=== PATIENT | female | born 1940 | race Caucasian/White ===

== ENCOUNTER 2018-02-17 09:51 | Emergency (ER) | payer MEDICARE, OTHER, SELFPAY ==
[2018-02-17 09:52] VITALS: BP 187/100; PULSE 99; RESP 14; TEMP 37.1; O2SAT 97; BMI 32.8
--- NOTE | 2018-02-17 10:24 | RAD_ITS ---
STUDY: X-RAY - UNILATERAL RIBS ( LEFT ) WITH CHEST REASON FOR EXAM: Female, 77 years old. Fall. Chest pain. TECHNIQUE - RIBS: 2 view(s) of the ribs. TECHNIQUE - CHEST: Single frontal view of the chest. COMPARISON: None. FINDINGS - RIBS: There is severe demineralization of the osseous structures which diminishes the diagnostic sensitivity of this examination, however there is no visualized rib fracture. FINDINGS - CHEST: Left lower lung linear increased densities. There is no demonstrated pleural abnormality. Normal size heart. Normal mediastinum and marcia. Normal visualized pulmonary arteries. There is atherosclerotic calcification of the aortic arch with tortuosity. There is demineralization of the osseous structures. Normal visualized ribs, clavicles, and shoulders. There is no demonstrated abnormality of the visualized soft tissue structures of the upper abdomen. RAD/Ribs Uni Min 3V w/PA Chest IMPRESSION: RIBS: No fracture seen. CHEST: Left lower lung atelectasis or scarring. No fracture seen. Electronically Signed: Hansel Alva MD at 10:54 EDT , Service support ,
--- NOTE | 2018-02-17 10:27 | ED.DCSUM_ITS ---
- ER Visit Summary Date of Service: 02/17/18 Chief Complaint: Rib pain History of Present Illness: The patient is a 77 F who states on Tuesday she was on a walk with her grandchildren when she tripped on fell on some brace concrete landing on her left side. She states her ribs did not hurt until she went to get up. She notes pain on the left lower anterior ribs. She states that each day was a little bit better until today when she went to get out of bed and she had more pain than she had had. She denies any cough. She states it hurts more to take a deep breath. She notes some pain radiating around the side towards the back. She denies any hematuria. No abdominal pain. She takes no blood thinners but does take an 81 mg aspirin. Physical Examination: Afebrile vital signs are stable Gen: Well-nourished well-developed Head: Normocephalic atraumatic Eyes: Perrl EOMI ENT: TMs clear no rhinorrhea moist mucous membranes Neck: Supple no lymphadenopathy no JVD nontender CVS: Regular rate rhythm no murmurs normal S1-S2 Respiratory: No distress clear to auscultation bilaterally patient has tenderness along the anterior lower left ribs Abdomen: Soft nontender nondistended normal bowel sounds no masses Back: Nontender Extremity: Nontender no edema Skin: Normal color no rash Neuro: alert orientated ?3 CN II-XII intact normal strength sensation reflexes gait cerebellar Psych: Normal affect normal mood Test Results: Rib series was obtained. No definitive fracture was seen. There was an area consistent with atelectasis in the left lower lung. Emergency Department Course and Treatment: I reviewed the rib series findings with the patient. We talked about deep breathing/incentive spirometry which the patient will be doing at home to help relieve some of this atelectasis. Patient was advised that it may could possibly develop into pneumonia. She will be using ibuprofen for pain. We talked about narcotic pain medicine and she declines at this time which I think is very reasonable. She will follow-up with primary care return if worsening. Impression: 1. Left chest contusion This note was generated with [employer] dictation software. It may contain incorrect words, spelling, and punctuation that were not noted in review of the chart prior to signing ED Disposition - Plan for ED Patient: Disposition: Home or Assisted Living Chief Complaint: Fall Instructions: ED Contusion Rib, ED Atelectasis Referrals: Ozzie Patino MD [Primary Care Provider] - As Needed Additional Instructions: Tylenol or ibuprofen for pain. 2 deep breaths every hour at minimum. Monitor for fever cough or signs of pneumonia.
== END 2018-02-17 11:12 | disposition home or self-care (01) ==
PROVIDERS: Emergency Provider Emergency Medicine; Family Provider Family Medicine; PCP Family Medicine
DX: S20.212A Contusion of left front wall of thorax, initial encounter (principal); J98.11 Atelectasis; W01.0XXA Fall on same level from slipping, tripping and stumbling without subsequent striking against object, initial encounter; Y93.9 Activity, unspecified; Y92.9 Unspecified place or not applicable; E03.9 Hypothyroidism, unspecified; Z86.79 Personal history of other diseases of the circulatory system; Z90.89 Acquired absence of other organs; Z79.82 Long term (current) use of aspirin; Z79.899 Other long term (current) drug therapy
CPT/HCPCS: 71101; 99282

== ENCOUNTER → 2018-12-05 08:54 | Outpatient (CLI) | payer MEDICARE, OTHER, SELFPAY ==
[2018-11-28 11:50] VITALS: BMI 31.1
[2018-12-05 09:51] LABS: AST(SGOT) 19 U/L (15-37); Alanine Aminotransfer ALT/SGPT 20 U/L (13-56); Albumin, Serum 3.7 g/dL (3.2-5.0); Alkaline Phosphatase 68 U/L (45-117); Bilirubin, Direct 0.26 mg/dL (0.00-0.30); Cholesterol 183 mg/dL (200); Globulin 4.1 g/dL (2.2-4.2); Protein, Total 7.8 g/dL (6.4-8.2); Triglycerides 106 mg/dL
[2018-12-05 09:52] LABS: High Density Lipoprotein 61 mg/dL; Very Low Density Lipoprotein 21 mg/dL (5-40)
== END ==
PROVIDERS: Family Provider Internal Medicine; PCP Internal Medicine; Referring Provider Internal Medicine Cardiovascular Disease; Visit Provider Internal Medicine Cardiovascular Disease
DX: E03.9 Hypothyroidism, unspecified (principal); R94.31 Abnormal electrocardiogram [ECG] [EKG]; Z13.220 Encounter for screening for lipoid disorders
CPT/HCPCS: 36415; 80061; 80076

== ENCOUNTER → 2018-12-26 12:46 | Outpatient (CLI) | payer MEDICARE, OTHER, SELFPAY ==
[2018-11-28 11:50] VITALS: BMI 31.1
--- NOTE | 2018-12-26 12:48 | CDU_ITS ---
Reason For Study: vertigo Rt. Velocities/BP Lt. Velocities/BP Prox CCA 140/13.4 cm/sec. Prox CCA 87.4/11.1 cm/sec. Mid CCA 116/14.9 cm/sec. Mid CCA 85.6/14.7 cm/sec. Dist CCA 91.9/11.8 cm/sec. Dist CCA 79.7/15.8 cm/sec. Prox ICA 82.5/21.2 cm/sec. Prox ICA 57.5/14.7 cm/sec. Mid ICA 111/22.8 cm/sec. Mid ICA 71.5/18.2 cm/sec. Dist ICA 104/24.4 cm/sec. Dist ICA 81.7/22.0 cm/sec. Rt. ICA/CCA = 1.0. Lt. ICA/CCA = 1.0. Prox ECA 148/14.7 cm/sec. Prox ECA 116/10.2 cm/sec. Rt. Vert. 57.0/7.46 cm/sec. Lt. Vert. 76.8/19.9 cm/sec. Right Extracranial There is intimal thickening but no significant atherosclerotic plaque noted in the right common carotid artery. There is heterogeneous, irregular atherosclerotic plaque noted in the right internal carotid artery. There is heterogeneous, irregular atherosclerotic plaque noted in the right external carotid artery. Antegrade flow is noted in the right vertebral artery. Left Extracranial There is intimal thickening but no significant atherosclerotic plaque noted in the left common carotid artery. There is heterogeneous, irregular atherosclerotic plaque noted in the left internal carotid artery. There is intimal thickening but no significant atherosclerotic plaque noted in the left external carotid artery. Antegrade flow is noted in the left vertebral artery. Procedure Carotid Duplex 74902. The exam was diagnostic. Exam performed in department. 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 Irregular calcific plague at the proximal left internal carotid with <50% stenosis. Patent and antegrade vertebrals bilaterally Ordering Physician: Juan Saldana Performed By: Montana Silver RVT
--- NOTE | 2018-12-26 12:48 | ECHOD_ITS ---
Reason For Study: Arrhythmia Procedure This was a 2D Doppler, Color Flow transthoracic echocardiogram. Exam performed in department. Left Ventricle Normal size and thickness. The estimated ejection fraction is 65 %. Stage 1 diastolic dysfunction. No regional wall motion abnormalities noted. Right Ventricle Normal size and thickness. Normal systolic function. Atria Normal left atrium. Normal right atrium. Normal atrial septum. Positive bubble study with R to L crossover. Mitral Valve The mitral valve is structurally normal. No prolapse or stenosis seen. Tricuspid Valve Normal tricuspid valve. Trivial tricuspid valve insufficiency. Right ventricular systolic pressure estimated to be 31 mmHg. Aortic Valve Normal aortic valve. Trisinus/trileaflet aortic valve. Pulmonic Valve Normal pulmonic valve. Great Vessels Normal aortic root. Normal arch. Normal inferior vena cava. Inferior vena cava collapse with sniff. Pericardium/Pleural No pericardial effusion. Medication 22 gauge I.V. with prn adaptor inserted into right arm. Performed a rapid injection of agitated mix of 9 cc saline and 1cc air to assess for atrial septal defect. MMode/2D Measurements & Calculations LVIDd: 3.4 cm IVSd: 1.4 cm Ao root diam: 3.2 cm LVIDs: 2.0 cm LVPWd: 1.1 cm LA dimension: 3.2 cm RVDd: 3.5 cm FS: 40.8 % LAV(MOD-bp): 50.7 ml LA A4 area: 17.0 cm2 RA A4 area: 13.9 cm2 LAV(MOD-bp) Indexed: 28.9 ml/m2 LAV(MOD-sp2): 57.4 ml LAV(MOD-sp4): 43.5 ml Time Measurements MV dec time: 0.30 sec Doppler Measurements & Calculations MV E max ilya: 60.9 cm/sec Lat Peak E' Ilya: 6.5 cm/sec Med Peak E' Ilya: 5.4 cm/sec MV A max ilya: 95.4 cm/sec E/E' lat: 9.4 E/E' med: 11.4 MV E/A: 0.64 MV V2 max: 116.5 cm/sec MV P1/2t max ilya: 74.2 cm/sec Ao V2 max: 130.0 cm/sec MV max P.4 mmHg MV P1/2t: 78.3 msec Ao max P.8 mmHg MV V2 mean: 63.0 cm/sec MV dec slope: 277.4 cm/sec2 Ao V2 mean: 94.7 cm/sec MV mean P.8 mmHg Ao mean P.9 mmHg MV V2 VTI: 28.9 cm MVA(P1/2t): 2.8 cm2 Ao V2 VTI: 27.3 cm LV V1 max: 102.5 cm/sec PA V2 max: 103.0 cm/sec TR max ilya: 252.8 cm/sec LV V1 max P.2 mmHg TR max P.6 mmHg LV V1 mean P.5 mmHg LV V1 mean: 52.5 cm/sec LV V1 VTI: 21.5 cm Interpretation Summary The estimated ejection fraction is 65 %. Stage 1 diastolic dysfunction. Positive bubble study with R to L crossover Trivial tricuspid valve insufficiency. Right ventricular systolic pressure estimated to be 31 mmHg. There is no comparison study available. Ordering Physician: Juan Saldana Referring Physician: Juan Saldana Performed By: Kash Richmond RCS
== END ==
PROVIDERS: Family Provider Internal Medicine; PCP Internal Medicine; Referring Provider Internal Medicine Cardiovascular Disease; Visit Provider Internal Medicine Cardiovascular Disease
DX: R94.31 Abnormal electrocardiogram [ECG] [EKG] (principal); R42 Dizziness and giddiness
CPT/HCPCS: 93306; 93880; A4216

== ENCOUNTER → 2019-01-01 10:31 | Outpatient (CLI) | payer MEDICARE, OTHER, SELFPAY ==
[2018-11-28 11:50] VITALS: BMI 31.1
--- NOTE | 2019-01-01 10:32 | STE_ITS ---
Reason For Study: ARRHYTHMIA-OTHER Stress Results Protocol: BENJAMÍN Maximum Predicted HR: 144 bpm Target HR: 122 bpm % Maximum Predicted HR: 98 % DurationHeart Rate Stage (mm:ss) (bpm) BP Comment BASELINE 92 140/80 STAGE 1 3:00 127 172/82INCREASED SOB STAGE 2 0:56 141 / RECOVERY 102 142/80 Stress Duration: 3:56 mm:ss Maximum Stress HR: 141 bpm Baseline Echocardiogram Findings The estimated ejection fraction is 65 %. Stress Echo Wall motion Data Resting WM Intermediate WM Stress WM Resting Wall Motion Wall Motion Stress No regional wall motion No regional wall motion abnormalities noted. abnormalities noted. EKG Data The baseline ECG displays normal sinus rhythm. The patient exercised according to the regular Benjamín protocol for a total duration of 3:56. The maximum heart rate attained was 142 beats per minute. This was 98% of maximum predicted heart rate. The patient exercised into stage 2 of the Benjamín protocol. During stress, there were no ST or T wave changes noted to suggest ischemia. No clinical angina was noted. Interpretation Summary The estimated ejection fraction is 65 %. Normal, adequate, treadmill echocardiogram. Negative for ischemia by EKG and echocardiographic criteria. No anginal symptoms noted. Rare PVCs noted at peak exercise. Poor exercise capacity for age. Test terminated due to fatigue and target heart rate. Target heart rate and dyspnea. Final LVEF is 75%. No complications. Ordering Physician: Juan Saldana Referring Physician: Juan Saldana Performed By: Kash Richmond RCS
== END ==
PROVIDERS: Family Provider Internal Medicine; PCP Internal Medicine; Referring Provider Internal Medicine Cardiovascular Disease; Visit Provider Internal Medicine Cardiovascular Disease
DX: G47.10 Hypersomnia, unspecified (principal); R94.31 Abnormal electrocardiogram [ECG] [EKG]; I10 Essential (primary) hypertension; G47.33 Obstructive sleep apnea (adult) (pediatric)
CPT/HCPCS: 93017; 93350; 95811

== ENCOUNTER → 2019-02-07 | Outpatient (CLI) | payer MEDICARE, OTHER, SELFPAY ==
[2019-01-15 14:10] VITALS: BMI 29.7
== END | disposition home or self-care (01) ==
LOC: SL 23:28
PROVIDERS: Family Provider Internal Medicine; PCP Internal Medicine; Referring Provider Nurse Practitioner Acute Care; Visit Provider Nurse Practitioner Acute Care
DX: G47.33 Obstructive sleep apnea (adult) (pediatric) (principal)
CPT/HCPCS: 95811

== ENCOUNTER → 2019-02-26 | Outpatient (CLI) | payer MEDICARE, OTHER, SELFPAY ==
[2019-01-15 14:10] VITALS: BMI 29.7
--- NOTE | 2019-02-26 11:32 | MRI_ITS ---
STUDY: MRI BRAIN WITH AND WITHOUT CONTRAST REASON FOR EXAM: Female, 78 years old. TIA, headaches, off balance for several months TECHNIQUE: Standardized multiplanar fat and water weighted pulse sequences were obtained. 15 IV Dotarem was administered for the contrast portion of the examination. COMPARISON: CT 09/06/2017 FINDINGS: Normal size of the ventricles and extra-axial spaces for the patient's age. There are a limited number of small white matter hyperintensities, distributed throughout the deep white matter tracts of the cerebral hemispheres, consistent with mild chronic white matter ischemic changes. Normal bilateral basal ganglia. Normal thalami. There is no extra-axial fluid accumulation. Normal flow voids within the major intracranial circulation suggesting patency by spin echo criteria. Normal venous enhancement. There is no enhancing intra-axial or extra-axial abnormality. Normal sella turcica, pituitary gland, infundibular stalk, optic chiasm and hypothalamus. Normal tectal plate and pineal gland. Normal midbrain, kasandra and medulla. Normal cerebellum. Normal basal cisterns. Normal bilateral temporal bones. Normal bilateral internal auditory canals. There are bilateral ocular lens implants with otherwise normal intraorbital contents. Normal visualized paranasal sinuses. Bilateral mastoid sinus disease. Normal visualized soft tissue structures. Normal visualized upper cervical spine. MRI/Brain W/WO Contrast IMPRESSION: No evidence of acute infarct or hemorrhage. Mild microangiopathic white matter disease. Electronically Signed: Ryan Glover MD at 17:24 EDT Tel , Service support ,
[2019-02-26 12:01] LABS: CREATININE FINGERSTICK 0.8 mg/dL (0.55-1.02); EGFR FINGERSTICK > 60.0000 mL/min (>60)
== END | disposition home or self-care (01) ==
LOC: MRI 11:15
PROVIDERS: Family Provider Internal Medicine; PCP Internal Medicine; Referring Provider Psychiatry & Neurology Neurology; Visit Provider Psychiatry & Neurology Neurology
DX: Z86.73 Personal history of transient ischemic attack (TIA), and cerebral infarction without residual deficits (principal)
CPT/HCPCS: 70553; A9575

== ENCOUNTER 2019-03-23 18:09 | Emergency (ER) | payer MEDICARE, OTHER, SELFPAY ==
[2019-01-15 14:10] VITALS: BMI 29.7
[2019-03-23 18:10] VITALS: BP 180/92; PULSE 106; RESP 18; TEMP 36.8; O2SAT 96; BMI 29.4
[2019-03-23 18:43] VITALS: BP 172/89; PULSE 100; RESP 24; O2SAT 95
[2019-03-23 19:36] LABS: Bedside Glucose 97 mg/dL (70-110)
--- NOTE | 2019-03-23 19:55 | CT_ITS ---
STUDY: CT BRAIN WITHOUT CONTRAST REASON FOR EXAM: Female, 78 years old. Trouble speaking and swallowing. RADIATION DOSAGE (If Supplied By Facility): CTDIvol = ( 44.99 ) mGy, DLP = ( 796.11 ) mGycm TECHNIQUE: Transaxial CT imaging of the brain was performed without administration of intravenous contrast material. Individualized dose optimization techniques were used for this CT. COMPARISON: September 06, 2017 FINDINGS: Normal soft tissue structures. Normal calvarium. There is mild cerebral atrophy with widening of the extra-axial spaces and ventricular dilatation. There are areas of decreased attenuation within the white matter tracts of the supratentorial brain, consistent with microvascular disease changes. There are small punctate calcifications of the basal ganglia which are seen in the aging brain as a normal variant. Normal brainstem. Normal cerebellum. There is no intracranial hemorrhage. There are no findings of an acute ischemic infarction. Normal visualized paranasal sinuses. There is stable trace opacification of the right mastoid air cells. CT/Brain/Head without Contrast IMPRESSION: Chronic involutional changes of the brain. Small vessel ischemia. Electronically Signed: Kelly Rai MD at 21:06 EDT Tel , Service support ,
--- NOTE | 2019-03-23 19:55 | EKG12_ITS ---
Test Reason : SOB Blood Pressure : / mmHG Vent. Rate : 091 BPM Atrial Rate : 091 BPM P-R Int : 164 ms QRS Dur : 092 ms QT Int : 366 ms P-R-T Axes : 048 -17 025 degrees QTc Int : 450 ms Normal sinus rhythm Voltage criteria for left ventricular hypertrophy Abnormal ECG Confirmed by SANGEETA GONZALEZ, PONCHO ([id number]), editor at large EFREM CHOWDHURY ([id number]) on 03/27/2019 8:52:46 AM Referred By: BB Confirmed By:PONCHO RUTHERFORD MD
--- NOTE | 2019-03-23 19:59 | ED.DCSUM_ITS ---
History of Present Illness Chief Complaint: Neuro S/Sx Informant: Patient, Family Onset: Days - 2 Context: Gradual Onset Timing: Continuous Quality and Location: Slurred Speech, Difficulty with Ambulation, - - Trouble swallowing Onset: gradual Current Severity: Severe Maximum Severity: Severe Worsened by: n/a Relieved by: n/a Associated Symptoms: - - droopy eyelids. Negative for: Headache, Nausea, Vomiting, Chest Pain Narrative: Patient had an episode similar to this several months ago that lasted several days and gradually resolved. Her had shoulder surgery recently, she is under stress and this is happening again. Her PCP was concerned she may be developing myasthenia gravis. She called her neurologist because the swallowing is so bad today she is having trouble managing liquids in her own secretions, they advised that she come to the emergency department because of that. She does not think she has aspirated or have any shortness of breath/choking today. Her speech is really slurred and feels thick. She denies any sore throat or tongue swelling. No vision trouble or diplopia. No headache. No peripheral numbness or weakness, but is having trouble with walking. - Past Medical History (1) MAGALIE (obstructive sleep apnea) Status: Chronic (2) Carotid artery disease Status: Chronic (3) Essential hypertension Status: Chronic (4) Hyperlipidemia Status: Chronic (5) Hypothyroidism Status: Chronic Past Medical History - Allergies and Home Meds Allergies/Adverse Reactions: Allergies Penicillins Adverse Reaction (Intermediate, Verified 11/28/18 11:51) GI upset Primary Care Physician: Yina Lucas MD [Primary Care Provider] - Lives: Spouse/ Significant Other Smoking Status: Never smoker Review of Systems General: Reports: Malaise. Denies: Chills, Fever, Sweats Eyes: Reports: - - Droopy eyelids. Denies: Visual changes - bilaterally, Diplopia ENT: Denies: Rhinorrhea, Sore throat Cardiovascular: Denies: Chest pain, Palpitations Respiratory: Denies: Dyspnea, Cough, Dyspnea on exertion Gastrointestinal: Reports: - - Trouble swallowing. Denies: Abdominal pain, Nausea, Vomiting, Diarrhea, Melena, Hematochezia Genitourinary: Denies: Dysuria, Hematuria, Frequency Musculoskeletal: Denies: Back pain, Swelling, Extremity Pain Skin: Denies: Rash, Wounds Neurological: Reports: - - Slurred speech. Denies: Headache, Weakness, Numbness Physical Exam Vital Signs/Narrative: Vital Signs Temp Pulse Resp BP Pulse Ox 03/23/19 18:43 100 24 H 172/89 H 95 03/23/19 18:10 98.2 F 106 H 18 180/92 H 96 Inital Vital Signs reviewed: Yes - NIH Stroke Scale 1a Level of Consciousness: 0 1b LOC Questions (Score 2 if aphasic/stupor): 0 1c LOC Commands (Only score 1st attempt): 0 2 Best Gaze (If aphasic, use reflexive mvmts.): 0 3 Visual: 0 4 Facial Palsy: 0 5 Motor Arm Right (UN = amputation/fusion): 0 5 Motor Arm Left: 0 6 Motor Leg Right: 0 6 Motor Leg Left: 0 7 Limb ataxia (Only + if out of proportion): 0 8 Sensory (Aphasia/stupor=0 or 1, coma=2): 0 9 Best Language: 0 10 Dysarthria (mute, coma=2, intubated=UN): 2 11 Extinction and Inattention (only scored if +): 0 Total Score: 2 General: Well nourished, Well developed Head: Normocephalic, Atraumatic Eyes: Perrl, EOMI, - - Mild bilateral ptosis, symmetric ENT: Moist mucous membranes, No rhinorrhea, - - Posterior oropharynx clear. No trismus. No tongue edema. Floor of mouth soft, nondistended. Neck: Supple, Nontender, No lymphadenopathy, No JVD Cardiovascular: Regular rate, Regular rhythm, No murmurs Respiratory: No distress, CTA bilaterally, Chest nontender Abdomen: Soft, Nontender, Nondistended, Normal bowel sounds Back: Nontender, Normal Inspection Extremities: Nontender, No edema. Negative for: Calf Tenderness Skin: Normal color, No rash, No Trauma Neurological: Alert, Oriented x3, Cranial nerves II-XII grossly intact, Normal Strength, Normal Sensation, - - Severe dysarthria. No aphasia. Normal doxmrw-qi-vmyk and gqlk-lm-yfog bilaterally. Psychological: Normal affect Diagnostic/Tx/Re-eval Impressions Brain CT 03/23/19 19:55 IMPRESSION: Chronic involutional changes of the brain. Small vessel ischemia. Electronically Signed: Kelly Rai MD at 21:06 EDT Tel , Service support , 03/23/19 19:55 Brain/Head without Contrast [CT] Stat Laboratory Results 03/23/19 03/23/19 03/23/19 19:30 20:20 20:23 WBC 7.8 RBC 5.15 Hgb 15.2 H Hct 44.2 MCV 85.8 MCH 29.5 MCHC 34.4 RDW 13.3 RDW Differential 41.8 Plt Count 296 MPV 9.8 Immature Gran % (Auto) 0.000 Neut % (Auto) 67.1 Lymph % (Auto) 24.0 [place] % (Auto) 7.0 Eos % (Auto) 1.1 Baso % (Auto) 0.8 Absolute Neuts (auto) 5.3 Absolute Lymphs (auto) 1.88 Total Counted Not Reportable Sodium Potassium Chloride Carbon Dioxide Anion Gap BUN Creatinine Estim Creat Clear Calc Est GFR (MDRD) Af Amer Est GFR (MDRD) Non-Af BUN/Creatinine Ratio Glucose Calcium Urine Color Yellow Urine Clarity Sl. Cloudy Urine pH 6.0 Ur Specific [place] 1.020 Urine Protein Negative Urine Glucose (UA) Normal Urine Ketones 150 H Urine Occult Blood 50 H Urine Nitrite Negative Urine Bilirubin Negative Urine Urobilinogen Normal Ur Leukocyte Esterase 100 H Urine RBC 0-5 SEEN Urine WBC 5-10 SEEN Ur Squamous Epith Cells 5-10 SEEN Amorphous Sediment 1+ URATE Urine Bacteria 0 SEEN Urine Mucus 0 SEEN POC Glucose 97 03/23/19 20:23 WBC RBC Hgb Hct MCV MCH MCHC RDW RDW Differential Plt Count MPV Immature Gran % (Auto) Neut % (Auto) Lymph % (Auto) [place] % (Auto) Eos % (Auto) Baso % (Auto) Absolute Neuts (auto) Absolute Lymphs (auto) Total Counted Sodium 139 Potassium 3.2 L Chloride 104 Carbon Dioxide 29.0 Anion Gap 6 BUN 21 H Creatinine 0.72 Estim Creat Clear Calc 37.85 Est GFR (MDRD) Af Amer 101 Est GFR (MDRD) Non-Af 84 BUN/Creatinine Ratio 29.2 H Glucose 101 Calcium 9.3 Urine Color Urine Clarity Urine pH Ur Specific [place] Urine Protein Urine Glucose (UA) Urine Ketones Urine Occult Blood Urine Nitrite Urine Bilirubin Urine Urobilinogen Ur Leukocyte Esterase Urine RBC Urine WBC Ur Squamous Epith Cells Amorphous Sediment Urine Bacteria Urine Mucus POC Glucose - Rhythm Strip Rhythm Strip: Sinus Rhythm Rate: 91 Ectopy: None - EKG Initial EKG Interpretation: Sinus Rhythm, No Acute Injury Pattern - nml EKG - Medical Decision Making Stroke Team Activated: No IV TPA Administered: No No sign of a stroke on CT. She has hypokalemia and mild prerenal azotemia, the rest of her work-up is unremarkable except for urinalysis showing a few white blood cells and 100 leukocyte esterase, without urinary symptoms so that is sent for culture and unlikely represents acute urinary tract infection. I discussed admission to the hospital since the patient is not able to drink fluids. Daughter and patient both really want to go home. I do not think she is in any acute danger, she does not have angioedema or stridor. This sounds like it could be a muscular or neurologic problem. However, if she is not able to tolerate fluids, she will get dehydrated and they will have to return which we discussed. They want to go home and I discussed trying some fluid first along with a potassium pill since her potassium is low. They thought that was a reasonable idea. She did not do well with the fluid at all ran out of her mouth and they thought it was ridiculous that we would have her attempt to swallow such a large pill. I had a talk with the daughter then along with the patient, they are very upset that she has been here for a long time and has not received any IV fluids if we are so concerned about dehydration. I apologetically agreed that was an innocent oversight, however I did not anticipate back and forth with them about discharge home when it was so obvious she was having difficulty drinking fluids, all of this extended her stay, which I had not initially predicted. In addition they were here at a very busy ED shift with many people in the waiting room and a busy department. The daughter states this has happened before and spontaneously resolved, and she thinks if the patient sleeps overnight, and she will get better rest at home than in the hospital, that she may wake up better and they can try again. They will bring her back if she is worse. Additionally her BP was 190s when she arrived, it is 162 systolic now. I think this is all very reasonable, and I ordered a bolus of IV fluids for them to get before they go and they are comfortable with this overall plan. ED Disposition - Plan for ED Patient: Disposition: Home or Assisted Living Diagnosis: Dysphagia, Hypokalemia, Accelerated hypertension Instructions: Understanding Dysphagia, ED Diet Soft Referrals: Jonathan Alatorre MD [STAFF PHYSICIAN] - Keep Rosalinda appointment
[2019-03-23 20:10] VITALS: BP 160/99; PULSE 96; RESP 13; O2SAT 96
[2019-03-23 20:39] LABS: Bacteria 0 SEEN /hpf (None Seen); Mucous, Urine 0 SEEN /hpf (<or=2+)
[2019-03-23 20:43] LABS: Absolute Lymphocyte Count 1.88 X10^3/ul (0.83-4.51); Absolute Neutrophil Count 5.3 X10^3/uL (2.0-7.7); Basophil# 0.06 X10^3/uL; Basophil% 0.8 % (0-1); Eosinophil# 0.09 X10^3/uL; Eosinophils% 1.1 % (0-5); Hematocrit 44.2 % (37-47); Hemoglobin 15.2 g/dl (12.0-15.0); Lymphocyte # 1.88 X10^3/ul (4.0); Mean Corp Hgb Conc 34.4 g/gl (32-36); Mean Corpuscular Hgb 29.5 pg (27.0-32.0); Mean Corpuscular Volume 85.8 fL (81-99); Mean Platelet Vol. 9.8 fl (6.2-12.0); Monocyte# 0.55 X10^3/uL; Neutrophil # 5.25 X10^3/uL (2.7-7.7); Neutrophil % 67.1 % (47-70); Platelet Count 296 K/mm3 (150-450); RBC Distribution Width CV 13.3 % (11.6-14.6); RBC Distribution Width SD 41.8 fl (35.1-43.9); Red Blood Count 5.15 M/mm3 (4.2-5.4); White Blood Count 7.8 K/mm3 (4.4-11.0)
[2019-03-23 20:44] LABS: POSITIVE COUNT NO; POSITIVE DIFFERENTIAL NO; POSITIVE MORPHOLOGY NO
[2019-03-23 20:52] LABS: BUN 21 mg/dL (7-18); Creatinine, Serum 0.72 mg/dL (0.55-1.02); Estimated Creatinine Clearance 37.85 ml/min; Glucose 101 mg/dL (74-106)
[2019-03-23 20:52] LABS: Color, Urine Yellow (Yellow); Glucose, Dipstick Normal (Normal); Leukocyte Esterase-Dipstick 100 /ul (Negative); Nitrite-Dipstick Negative (Negative); Occult Blood-Urine 50 /ul (Negative); Protein-Dipstick Negative (Negative); Urine Bilirubin Dipstick Negative (Negative); Urine Clarity Sl. Cloudy (Clear); Urine Urobilinogen Normal (Normal)
[2019-03-23 20:53] LABS: Ketone-Dipstick 150 mg/dl (Negative)
[2019-03-23 20:53] LABS: Anion Gap 6 (5-15); BUN/Creat Ratio 29.2 RATIO (10-20); Calcium,Total 9.3 mg/dL (8.5-10.1); Chloride 104 mmol/L (98-107); EST Glomerular Filtration Rate 84 mL/min (>60); Est Glom Filt Rate - Afr Amer 101 mL/min (>60); Potassium 3.2 mmol/L (3.5-5.1); Sodium Level 139 mmol/L (136-145)
[2019-03-23 20:55] LABS: Amorphous Sediment 1+ URATE; Red Blood Cells-Urine 0-5 SEEN /hpf (0-5); Squamous Epithelial Cells - UA 5-10 SEEN /hpf (5-10); White Blood Cells 5-10 SEEN /hpf (0-5)
[2019-03-23 22:00] VITALS: BP 169/86; PULSE 94; RESP 15; O2SAT 94
--- NOTE | 2019-03-23 23:24 | ED.RN ---
FAMILY EXPRESSED CONCERN ABOUT PT HYDRATION STATUS AND THIER WISHES TO GO HOME, DR. PERALES MADE AWARE, NO FURTHER ORDERS OR PT NEEDS AT THIS TIME.
--- NOTE | 2019-03-23 23:26 | ED.RN ---
PT COULD NOT CLOSE MOUTH AROUND STRAW OR CLOSE MOUTH TO DRINK WATER, WATER WAS DRIBBLING RIGGHT BACK OUT OF THE PTS MOUTH DURING SWALLOW EVAL. DR. PERALES MADE AWARE, NO NEW MEDICATION ORDER AT THIS TIME.
[2019-03-23] MEDS: 0.9% Normal Saline 1,000 ML 999 ML IV (23:50)
[2019-03-24] VITALS: BP 156/84; PULSE 86; RESP 18; O2SAT 94
[2019-03-24 01:07] VITALS: BP 167/86; PULSE 76; RESP 19; O2SAT 96
== END 2019-03-24 01:07 | disposition home or self-care (01) ==
PROVIDERS: Emergency Provider Emergency Medicine; Family Provider Internal Medicine; PCP Internal Medicine
DX: R13.10 Dysphagia, unspecified (principal); E87.6 Hypokalemia; I10 Essential (primary) hypertension; H02.403 Unspecified ptosis of bilateral eyelids; R47.81 Slurred speech; R29.702 NIHSS score 2; G47.33 Obstructive sleep apnea (adult) (pediatric); I65.29 Occlusion and stenosis of unspecified carotid artery; E03.9 Hypothyroidism, unspecified; Z79.82 Long term (current) use of aspirin; Z79.899 Other long term (current) drug therapy
CPT/HCPCS: 70450; 80048; 81001; 82962; 85025; 87086; 87088; 87186; 93005; 96360; 99283; J7030; A4216

== ENCOUNTER → 2019-03-26 | Outpatient (CLI) | payer MEDICARE, OTHER, SELFPAY ==
[2019-03-23 18:10] VITALS: BMI 29.4
[2019-03-30 15:39] LABS: ACHR Recep AB, Blocking 53 % (0-25); Acetylcholine Receptor Binding 5.32 nmol/L (0.00-0.24)
== END | disposition home or self-care (01) ==
LOC: LAB 13:55
PROVIDERS: Family Provider Internal Medicine; PCP Internal Medicine; Referring Provider Psychiatry & Neurology Neurology; Visit Provider Psychiatry & Neurology Neurology
DX: H02.409 Unspecified ptosis of unspecified eyelid (principal); R13.10 Dysphagia, unspecified
CPT/HCPCS: 36415; 83519; 84238

== ENCOUNTER → 2019-05-15 | Outpatient (CLI) | payer MEDICARE, OTHER, SELFPAY ==
[2019-04-25 11:11] VITALS: BMI 30.9
--- NOTE | 2019-05-15 15:28 | CT_ITS ---
STUDY: CT CHEST WITH CONTRAST REASON FOR EXAM: Female, 78 years old. THY KENNY, HX-HTN, MYASTHENIA GRAVIS RADIATION DOSAGE (If Supplied By Facility): CTDIvol = ( 8.27 ) mGy, DLP = ( 436.83 ) mGycm TECHNIQUE: Transaxial imaging was performed following intravenous administration of 100 IV Isovue 300. Individualized dose optimization techniques were used for this CT. COMPARISON: None. FINDINGS: There is hyperinflation of the lungs consistent with chronic obstructive lung disease (COPD). No infiltrates. No effusions. There is no demonstrated pleural abnormality. Normal heart and pericardium. Normal mediastinum. No evidence for mediastinal mass. Normal hilar regions. Normal enhanced pulmonary arteries. Normal aorta arch and descending thoracic aorta. Normal osseous structures. There is no demonstrated acute abnormality of the visualized upper abdomen. CT/Chest WITH Contrast IMPRESSION: There are findings consistent with COPD. There is no evidence of acute chest disease. No evidence for mediastinal mass. Electronically Signed: Yimi Huddleston MD at 16:21 EDT , Service support ,
[2019-05-15 15:46] LABS: CREATININE FINGERSTICK 0.6 mg/dL (0.55-1.02); EGFR FINGERSTICK > 60.0000 mL/min (>60)
== END | disposition home or self-care (01) ==
PROVIDERS: Family Provider Internal Medicine; PCP Internal Medicine; Referring Provider Psychiatry & Neurology Neurology; Visit Provider Psychiatry & Neurology Neurology
DX: D15.0 Benign neoplasm of thymus (principal); G70.00 Myasthenia gravis without (acute) exacerbation
CPT/HCPCS: 71260; Q9967

== ENCOUNTER 2019-09-28 09:47 | Day surgery (SDC) | payer MEDICARE, OTHER, SELFPAY ==
[2019-09-19 10:10] VITALS: BMI 31.5
--- NOTE | 2019-09-19 10:45 | HP_ITS ---
Intake Vital Signs 09/19/19 Body Mass Index (BMI) 31.5 09/19/19 Height 5 ft 2 in 09/19/19 Weight: 170 lb 09/19/19 Body Mass Index (BMI) 31.1 09/19/19 Blood Pressure 145/82 H 09/19/19 Blood Pressure Location Rt brachial 09/19/19 Blood Pressure Position Sitting 09/19/19 Respiratory Rate 18 Intake Visit Reasons: Blood In Stool Chief Complaint: Abnl EKG Manager [employer]ment Required: No Is patient in pain?: No Allergies Penicillins Adverse Reaction (Intermediate, Verified 09/19/19 10:08) GI upset Medications hydrochlorothiazide 25 mg tablet 25 mg PO DAILY 11/24/18 [History Confirmed 09/19/19] levothyroxine 88 mcg tablet 88 mcg PO DAILY 11/24/18 [History Confirmed 09/19/19] mycophenolate mofetil 500 mg tablet 500 mg PO BID 04/25/19 [History Confirmed 09/19/19] pyridostigmine bromide 60 mg tablet 60 mg PO TID tab 04/25/19 [History Confirmed 09/19/19] losartan 50 mg tablet 50 mg PO DAILY 09/19/19 [History Confirmed 09/19/19] PFS Medical History (Updated 09/19/19 @ 10:44 by Ivan Herrera MD) Rectal bleeding (Acute) Carotid artery disease (Chronic) Hyperlipidemia (Chronic) Hypersomnia (Acute) Dizziness (Acute) Abnormal EKG (Chronic) Hypothyroidism (Chronic) Essential hypertension (Chronic) Myasthenia gravis (Acute) Ovarian cyst (Resolved) Surgical History History of appendectomy (Resolved) History of tonsillectomy (Resolved) Family History Father CVA (cerebral vascular accident) Mother Alzheimer's disease Social History (Updated 09/19/19 @ 10:45 by Ivan Herrera MD) Smoking Status: Never smoker second hand exposure: No alcohol intake: never substance use type: does not use caffeine: Yes HPI HPI HPI: PAPI SMITH, is a 79 F who presents to the office today for HPI HPI Surgical H&P: Yes HPI: PAPI SMITH, is a 79 F who presents to the office today for surgical consultation regarding a several week history of blood in her stool. 79-year-old female. No family history of colon polyps or colon cancer. She has never personally had a colonoscopy. Several weeks ago she had onset of noting blood mixed in her stool. She has not had any abdominal pain. She has no history of diverticular disease or anal fissure or hemorrhoids. As of April 25, 2019 her hemoglobin was 14.2 and hematocrit 44.7. As of June 22, 2019 her hemoglobin was 13.4 and hematocrit 41.6.. As of August 01, 2019 her hemoglobin 14.7 and hematocrit 44.2 with a platelet count of 311,000 she has been recently diagnosed with myasthenia gravis. She also has sleep apnea. Apparently if she maintains her normal routine she is rather stable.. She denies weight loss. Appetite and feeling of wellness otherwise stable. She is not on any anticoagulants Previous abdominal surgery includes oophorectomy and appendectomy remotely The patient was referred by her primary care physician Dr. Lucas and by Milena Vasquez CNP and a written compromise surgical consult recommendations will be returned to them ROS General General: Yes fatigue; no weight change, appetite, colon cancer, breast cancer or weakness HEENT HEENT: No difficulty swallowing, eye injury, eye surgery, swollen glands or hoarseness Endo Endocrine: Yes thyroid disease; no diabetes mellitus, thyroid cancer, Hair loss, heat intolerance or cold intolerance Skin Skin: No rash or changing moles Breast Breast: No left breast lump, right breast lump, nipple discharge, breast pain, abnormal mammogram, abnormal US or breast enlargement Musc Musculoskeletal: Yes arthritis; no back problems, rheumatoid arthritis, gout or joint pain Cardio Cardiovascular: Yes high blood pressure; no murmur, pacemaker, heart disease, atrial fibrillation, heart attack, heart stent, palpitations, shortness of breat with exertion or chest pain Psych Psychiatric: No depression, anxiety or hearing voices Resp Respiratory: No shortness of breath, Yes sleep apnea, No cough, No COPD, No asthma, No emphysema, No wheezing Gastro Gastrointestinal: No abdominal pain, No nausea or vomiting, No diarrhea, No constipation, Yes blood in stool, No acid reflux, No hemorrhoids, No ulcers, No gallbladder problem, No black,tarry stools Carroll Hematologic: No blood thinners, No blood disorders, No bleeding, No anemia, No blood clots Neuro Neurologic: No system reviewed and no additional complaints, except as docu, No as per HPI, No abnormal walking, No abnormal hearing, No abnormal movements, No abnormal speech, No behavioral changes, No burning sensations, No confusion, No seizure-like activity, No unsteadiness, No dizziness, No localized weakness, No frequent falls, No headache(s), No lack of coordination, No loss of vision, No memory loss, No numbness, No other visual disturbances, No radiating pain, No restless legs, No sensory deficit, No fainting, No tingling, No tremor(s), No weakness, No other Exam Const General: cooperative, healthy appearing, comfortable Nutritional Appearance: obese Orientation: alert, awake HENMT Head: normal to inspection Eyes General: appearance normal, both eyes and all related structures Chest Breast Palpation: No nipple discharge Resp Effort & Inspection: normal respiratory effort Auscultation: clear to auscultation bilaterally Cardio Rate: regular rate Rhythm: regular rhythm Heart Sounds: no murmurs GI Palpation: soft, no hepatosplenomegaly Auscultation: normal bowel sounds Skin General: no rashes or lesions noted Neuro Cognition: normal cognition Extrem General: no calf tenderness bilaterally Psych Affect: normal affect Assessment & Plan Problems 1. Rectal bleeding K62.5 Plan Rectal bleeding of undetermined etiology. Patient with myasthenia gravis and sleep apnea and easy fatigability. I proposed for her colonoscopy with possible biopsy or polypectomy as indicated. She has never had a previous colonoscopy. Based upon the new onset she would be at higher risk for identifying pathology and she is aware. We will utilize monitored anesthesia care. The patient and daughter have had an opportunity to ask and have questions answered. We will schedule and expedite her management. I appreciate the opportunity of assisting with her surgical care. CC: Dr. Lance Herrera M.D., F.A.C.S. Coding Level of Care Code 08097 Diagnoses Rectal bleeding K62.5 09/19/19 1045 <Electronically signed by Ivan jones MD> Date _ Ivan Herrera MD I have re-examined the patient. There are no clinical changes since date of exam.
[2019-09-28 10:45] VITALS: BP 142/79; PULSE 87; RESP 16; TEMP 36.9; O2SAT 98; BMI 30.6
[2019-09-28] MEDS: Lactated Ringers 1,000 ML 75 ML IV (10:57)
--- NOTE | 2019-09-28 11:00 | COLBX_PTH ---
PATIENT: PAPI SMITH LOC: EN U#:[id number] AGE/SX: 79/F ROOM: RE09/28/[address]: Dr. Ivan Herrera MD : 1940 BED: DIS: 09/28/2019 SPEC #: [id number] RECD: 09/28/19 12:25 STATUS: VENUS CALIN #: [id number] DEREK: 09/28/19 11:[address]: Ivan Herrera DEPT: SURGICAL PATHOLOGY RECD BY: Jim Mitchell ENTERED: 09/28/19 14:00 SP TYPE: COLON BX OTHR DR: Dr. Yina Lucas MD Tissues: A - COLON BIOPSY B - Transverse colon Procedures: Surgery Specimen Level IV HEADER OPERATION: Colonoscopy (MAC) PRE-OP DIAGNOSIS: Rectal bleeding TISSUE SUBMITTED: A - Hepatic flexure polyp, B - Biopsy of mid transverse polyp MICROSCOPIC DIAGNOSIS A. Colonic polyp at hepatic flexure, biopsy: Tubular adenoma. B. Mid transverse colon polyp, biopsy: Polypoid fragments of colonic mucosa. See comment. AM:anila 10/01/19 COMMENT B. Neither hyperplastic nor adenomatous change is identified. Clinical correlation is suggested. MICROSCOPIC DESCRIPTION Slides are reviewed. GROSS DESCRIPTION A - Received in fixative is one container labeled with the patient's name and designated hepatic flexure polyp. The specimen consists of multiple irregular fragments of light martinez soft tissue that in aggregate measure 0.5 x 0.5 x 0.1 cm. The specimen is totally submitted in one cassette. B - Received in fixative is one container labeled with the patient's name and designated mid transverse polyp biopsy. The specimen consists of one irregular fragment of light martinez soft tissue that measures 0.3 x 0.2 x 0.1 cm. The specimen is totally submitted in one cassette. / AM:anila 09/28/19 TC:5 CPT: 50427 x2
[2019-09-28 12:00] VITALS: BP 133/85; BP 142/79; PULSE 84; RESP 16; TEMP 36.9; O2SAT 97
--- NOTE | 2019-09-28 12:01 | OP.COLON_ITS ---
Patient Name: Abraham Ryan Procedure Date: 09/28/2019 11:30 AM Date of : 1940 Age: 79 Procedure: Colonoscopy Indications: Rectal bleeding Providers: Ivan Herrera MD Referring MD: Yina Lucas Medicines: See the Anesthesia note for documentation of the administered medications Patient Profile: Last Colonoscopy: none. The patient's first colonoscopy is today. Complications: No immediate complications. Procedure: Pre-Anesthesia Assessment: - Prior to the procedure, a History and Physical was performed, and patient medications and allergies were reviewed. The patient's tolerance of previous anesthesia was also reviewed. The risks and benefits of the procedure and the sedation options and risks were discussed with the patient. All questions were answered, and informed consent was obtained. Prior Anticoagulants: The patient has taken no previous anticoagulant or antiplatelet agents. ASA Grade Assessment: III - A patient with severe systemic disease. After reviewing the risks and benefits, the patient was deemed in satisfactory condition to undergo the procedure. After I obtained informed consent, the scope was passed under direct vision. Throughout the procedure, the patient's blood pressure, pulse, and oxygen saturations were monitored continuously. The Colonoscope was introduced through the anus and advanced to the cecum, identified by appendiceal orifice and ileocecal valve. The colonoscopy was performed without difficulty. The patient tolerated the procedure well. The quality of the bowel preparation was adequate to identify polyps. The ileocecal valve was photographed. Scope In: 11:37:30 AM Scope Withdrawal Time 0 hours 11 minutes 44 seconds Scope Out: 11:54:41 AM Total Procedure Duration Time 0 hours 17 minutes 11 seconds Findings: The digital rectal exam findings include non-thrombosed external hemorrhoids, non-thrombosed internal hemorrhoids and internal hemorrhoids that prolapse with straining, but require manual replacement into the anal canal (Grade III). Multiple small and large-mouthed diverticula were found in the sigmoid colon and descending colon. A 8 mm polyp was found in the hepatic flexure. The polyp was sessile. The polyp was removed with a cold snare. Resection and retrieval were complete. A 4 mm polyp was found in the mid transverse colon. The polyp was sessile. The polyp was removed with a cold biopsy forceps. Resection and retrieval were complete. Impression: - Non-thrombosed external hemorrhoids, non-thrombosed internal hemorrhoids and internal hemorrhoids that prolapse with straining, but require manual replacement into the anal canal (Grade III) found on digital rectal exam. I suspect the rectal bleeding is secondary to hemorrhoids and will recommend conservative measures like daily fiber supplementation - Diverticulosis in the sigmoid colon and in the descending colon. - One 8 mm polyp at the hepatic flexure, removed with a cold snare. Resected and retrieved. - One 4 mm polyp in the mid transverse colon, removed with a cold biopsy forceps. Resected and retrieved. Recommendation: - Discharge patient to home. - Resume previous diet. - Continue present medications. - Telephone my office for pathology results in 1 week. - Repeat colonoscopy in 5 years for surveillance based on pathology results. Procedure Code(s): --- Professional --- 19562, Colonoscopy, flexible; with removal of tumor(s), polyp(s), or other lesion(s) by snare technique 10185, 59, Colonoscopy, flexible; with biopsy, single or multiple Diagnosis Code(s): --- Professional --- K64.2, Third degree hemorrhoids K64.4, Residual hemorrhoidal skin tags D12.3, Benign neoplasm of transverse colon (hepatic flexure or splenic flexure) K62.5, Hemorrhage of anus and rectum K57.30, Diverticulosis of large intestine without perforation or abscess without bleeding CPT copyright 2017 [employer]. All rights reserved. The codes documented in this report are preliminary and upon manager appointment review may be revised to meet current compliance requirements. Ivan Herrera MD 09/28/2019 12:01:13 PM This report has been signed electronically. Number of Addenda: 0 Note Initiated On: 09/28/2019 11:30 AM
[2019-09-28 12:05] VITALS: BP 127/84; BP 142/79; PULSE 72; RESP 16; O2SAT 95
[2019-09-28 12:10] VITALS: BP 137/67; BP 142/79; PULSE 76; RESP 16; O2SAT 100
[2019-09-28 12:15] VITALS: BP 124/77; BP 142/79; PULSE 79; RESP 16; TEMP 37.3; O2SAT 98
[2019-09-28 12:55] VITALS: BP 142/79
== END 2019-09-28 12:55 | disposition home or self-care (01) ==
LOC: EN 09:47 → AC 10:28
PROVIDERS: Family Provider Internal Medicine; PCP Internal Medicine; Referring Provider Internal Medicine; Visit Provider Surgery
PROC: 0DJD8ZZ Inspection of Lower Intestinal Tract, Via Natural or Artificial Opening Endoscopic (ICD-10-PCS; CPT 45378; principal; 2019-09-28 10:55)
DX: D12.3 Benign neoplasm of transverse colon (principal); K63.5 Polyp of colon; K64.4 Residual hemorrhoidal skin tags; K64.2 Third degree hemorrhoids; K57.30 Diverticulosis of large intestine without perforation or abscess without bleeding; E03.9 Hypothyroidism, unspecified; I10 Essential (primary) hypertension; G70.00 Myasthenia gravis without (acute) exacerbation; G47.30 Sleep apnea, unspecified; M19.90 Unspecified osteoarthritis, unspecified site; Z78.0 Asymptomatic menopausal state; Z79.899 Other long term (current) drug therapy
CPT/HCPCS: 45380; 45385; 88305; J7120

== ENCOUNTER 2020-09-27 14:10 | Inpatient (IN) | payer MEDICARE, OTHER, SELFPAY ==
[2020-02-25 10:52] VITALS: BMI 30.6
[2020-09-27] VITALS (9 sets, daily range): BP systolic 149–174; BP diastolic 65–93; PULSE 80–115; RESP 15–24; TEMP 35.7–37.4; O2SAT 94–98; BMI 29.2; BMI 31.1
--- NOTE | 2020-09-27 14:24 | EKG12_ITS ---
Test Reason : Blood Pressure : / mmHG Vent. Rate : 081 BPM Atrial Rate : 081 BPM P-R Int : 180 ms QRS Dur : 102 ms QT Int : 384 ms P-R-T Axes : 050 -09 006 degrees QTc Int : 446 ms Normal sinus rhythm Moderate voltage criteria for LVH, may be normal variant Inferior infarct , age undetermined Nonspecific ST & T wave abnormality, consider lateral ischemia Abnormal ECG Confirmed by CHANDLER GONZALEZ, KYE ([id number]), content editor EFREM CHOWDHURY ([id number]) on 10/01/2020 9:30:22 AM Referred By: ASHLEE Confirmed By:KYE ARTEAGA MD
--- NOTE | 2020-09-27 14:33 | ED.DCSUM_ITS ---
History of Present Illness Informant: Patient Onset: Month(s) Narrative: 80-year-old female with past medical history of hypertension, hyperlipidemia, hypothyroidism, myasthenia gravis, MAGALIE presents with fatigue x1 month. She states she has been very fatigued and had no energy. She has no other specific symptoms. No focal weakness, numbness, or tingling. She denies fevers, chills, nausea, vomiting, chest pain, shortness of breath, cough, abdominal pain, diarrhea, constipation, melena, hematochezia, or urinary symptoms. She states her has bronchitis currently but was not tested for Covid. She has no other sick contacts. She takes pyridostigmine and CellCept for her myasthenia. She denies vision changes, ptosis, diplopia, difficulty swallowing or chewing, difficulty handling secretions, speech changes, shortness of breath, or dyspnea on exertion. No recent medication changes. <Radha Sotelo - Last Filed: 09/27/20 17:58> <Riley Harper - Last Filed: 09/27/20 19:19> Chief Complaint: Fatigue Past Medical History Past Medical History: - - HTN, HLD, hypothyroidism, myasthenia gravis, MAGALIE Smoking Status: Never smoker <Radha Sotelo - Last Filed: 09/27/20 17:58> - Family History Maternal Family History: Family History (Last Reviewed 02/25/20 @ 11:[address] Isiah Ramirez DO) Father CVA (cerebral vascular accident) Mother Alzheimer's disease Family History: Reports: Dementia Paternal Family History: Family History (Last Reviewed 02/25/20 @ 11:[address] Isiah Ramirez DO) Father CVA (cerebral vascular accident) Mother Alzheimer's disease Family History: Reports: Stroke <Riley Harper - Last Filed: 09/27/20 19:19> - Allergies and Home Meds Allergies/Adverse Reactions: Allergies Penicillins Adverse Reaction (Intermediate, Verified 09/27/20 14:11) GI upset Review of Systems General: Reports: Malaise. Denies: Chills, Fever, Sweats Eyes: Denies: Visual changes - bilaterally, Diplopia ENT: Denies: Rhinorrhea, Sore throat Cardiovascular: Denies: Chest pain, Palpitations Respiratory: Denies: Dyspnea, Cough, Dyspnea on exertion Gastrointestinal: Denies: Abdominal pain, Nausea, Vomiting, Diarrhea, Melena, Hematochezia Genitourinary: Denies: Dysuria, Hematuria, Frequency Musculoskeletal: Denies: Back pain, Extremity Pain Skin: Denies: Rash, Wounds Neurological: Denies: Headache, Weakness, Numbness <Radha Sotelo - Last Filed: 09/27/20 17:58> Physical Exam Vital Signs/Narrative: Vital Signs Temp Pulse Resp BP Pulse Ox 09/27/20 14:11 96.3 F L 87 18 149/65 H 95 General: Well nourished, Well developed, No Acute Distress Head: Normocephalic, Atraumatic Eyes: Perrl, EOMI, - - No ptosis, EOMI ENT: Moist mucous membranes, No rhinorrhea Neck: Supple, Nontender Cardiovascular: Regular rate, Regular rhythm, No murmurs Respiratory: No distress, CTA bilaterally, Chest nontender Abdomen: Soft, Nontender, Nondistended, Normal bowel sounds Back: Nontender, Normal Inspection Extremities: Nontender, No edema Skin: Normal color, No rash Neurological: Alert, Oriented x3, Cranial nerves II-XII grossly intact, Normal Strength, Normal Sensation Psychological: Normal affect, Normal Mood <Radha Sotelo - Last Filed: 09/27/20 17:58> Vital Signs/Narrative: Vital Signs Pulse Resp BP Pulse Ox 09/27/20 16:22 87 15 162/92 H 97 <Riley Harper - Last Filed: 09/27/20 19:19> Diagnostic/Tx/Re-eval Clinical Impression(s) from Imaging Studies Chest X-Ray 09/27/20 15:17 IMPRESSION: 1. Early infiltrates in the bilateral lung bases suggesting pneumonia, including viral/atypical causes. Electronically Signed: Lalit Gupta MD ([place]) at 15:26 EST , Service support , Laboratory Data 09/27/20 09/27/20 09/27/20 14:50 14:50 14:50 WBC 9.6 RBC 4.75 Hgb 13.3 Hct 39.7 MCV 83.6 MCH 28.0 MCHC 33.5 RDW Std Deviation 38.0 RDW Coeff of Arias 12.7 Plt Count 348 MPV 10.2 Immature Gran % (Auto) 0.800 Neut % (Auto) 78.8 H Lymph % (Auto) 10.1 L [place] % (Auto) 10.0 Eos % (Auto) 0.0 Baso % (Auto) 0.3 Absolute Neuts (auto) 7.6 Absolute Lymphs (auto) 0.97 Nucleated RBC % 0 Sodium 141 Potassium 2.3 L* Chloride 106 Carbon Dioxide 30.0 Anion Gap 5 BUN 29 H Creatinine 0.94 Estim Creat Clear Calc 39.01 Est GFR (MDRD) Af Amer 74 Est GFR (MDRD) Non-Af 61 BUN/Creatinine Ratio 30.8 H Glucose 137 H Calcium 8.8 Magnesium 2.2 Troponin I < 0.015 Urine Color Urine Clarity Urine pH Ur Specific [place] Urine Protein Urine Glucose (UA) Urine Ketones Urine Occult Blood Urine Nitrite Urine Bilirubin Urine Urobilinogen Ur Leukocyte Esterase Urine RBC Urine WBC Ur Squamous Epith Cells Urine Bacteria Urine Mucus 09/27/20 14:55 WBC RBC Hgb Hct MCV MCH MCHC RDW Std Deviation RDW Coeff of Arias Plt Count MPV Immature Gran % (Auto) Neut % (Auto) Lymph % (Auto) [place] % (Auto) Eos % (Auto) Baso % (Auto) Absolute Neuts (auto) Absolute Lymphs (auto) Nucleated RBC % Sodium Potassium Chloride Carbon Dioxide Anion Gap BUN Creatinine Estim Creat Clear Calc Est GFR (MDRD) Af Amer Est GFR (MDRD) Non-Af BUN/Creatinine Ratio Glucose Calcium Magnesium Troponin I Urine Color Yellow Urine Clarity Sl. Cloudy Urine pH 6.0 Ur Specific [place] 1.015 Urine Protein 15 H Urine Glucose (UA) Normal Urine Ketones Negative Urine Occult Blood 10 H Urine Nitrite Positive H Urine Bilirubin Negative Urine Urobilinogen 1 H Ur Leukocyte Esterase 25 H Urine RBC 0-5 SEEN Urine WBC 5-10 SEEN Ur Squamous Epith Cells 5-10 SEEN Urine Bacteria 3+ Urine Mucus 0 SEEN - Rhythm Strip Rhythm Strip: Sinus Rhythm Rate: 81 Ectopy: None - Medical Decision Making Patient presents with generalized fatigue and weakness. She appears well nontoxic. Vital signs within normal limits. She has a normal medical and neurological exam. Labs remarkable for hypokalemia of 2.3, magnesium WNL. Normal renal function. EKG is NSR with no hyperkalemic changes. She was given 40 oral potassium and 40 mEqs IV. Urinalysis consistent with UTI and she was treated with Rocephin and culture sent. Chest x-ray shows early infiltrates in bilateral bases suggesting pneumonia which may be viral. She has no fever, cough, or SOB but states her has a cough. Her COVID-19 is positive. She will require admission for further electrolyte replacement and monitoring. Case discussed w [facility] hospitalist who was agreeable to admission and she was transferred to the floor in stable condition. <Radha Sotelo - Last Filed: 09/27/20 17:58> - Medical Decision Making Patient was seen individually examined by myself. Agree with above plan. Patient is unable to ambulate due to weakness, hypokalemia, UTI, Covid?19 infection. She would benefit from inpatient treatment. <Riley Harper - Last Filed: 09/27/20 19:19> ED Disposition <Radha Sotelo - Last Filed: 09/27/20 17:58> <Riley Harper - Last Filed: 09/27/20 19:19> - Plan for ED Patient: Disposition: Acute Care Hospital [facility] Diagnosis: Generalized weakness, Hypokalemia, UTI (urinary tract infection), COVID-19
[2020-09-27 15:06] LABS: Mucous, Urine 0 SEEN /hpf (<or=2+)
[2020-09-27 15:08] LABS: Absolute Lymphocyte Count 0.97 X10^3/uL (0.83-4.51); Absolute Neutrophil Count 7.6 X10^3/uL (2.0-7.7); Basophil# 0.03 X10^3/uL; Basophil% 0.3 % (0-1); Hematocrit 39.7 % (37-47); Hemoglobin 13.3 g/dL (12.0-15.0); Lymphocyte # 0.97 X10^3/ul (4.0); Lymphocyte % 10.1 % (19-41); Mean Corp Hgb Conc 33.5 g/dL (32-36); Mean Corpuscular Volume 83.6 fL (81-99); Mean Platelet Vol. 10.2 fl (6.2-12.0); Monocyte# 0.96 X10^3/uL; NRBC Flagged by Analyzer 0 % (0-5); Neutrophil # 7.57 X10^3/uL (2.7-7.7); Neutrophil % 78.8 % (47-70); Platelet Count 348 K/mm3 (150-450); RBC Distribution Width CV 12.7 % (11.6-14.6); Red Blood Count 4.75 M/mm3 (4.2-5.4); White Blood Count 9.6 K/mm3 (4.4-11.0)
[2020-09-27 15:17] LABS: Color, Urine Yellow (Yellow); Glucose, Dipstick Normal (Normal); Ketone-Dipstick Negative (Negative); Leukocyte Esterase-Dipstick 25 /ul (Negative); Nitrite-Dipstick Positive (Negative); Occult Blood-Urine 10 /ul (Negative); Protein-Dipstick 15 mg/dl (Negative); Specific Gravity, Urine 1.015 (1.002-1.030); Urine Bilirubin Dipstick Negative (Negative); Urine Clarity Sl. Cloudy (Clear); Urine Urobilinogen 1 mg/dl (Normal)
--- NOTE | 2020-09-27 15:17 | RAD_ITS ---
STUDY: X-RAY CHEST REASON FOR EXAM: Female, 80 years old. Fatigue,weakness, appetite loss TECHNIQUE: AP COMPARISON: 02/17/2018 FINDINGS: There are patchy groundglass opacities with mild reticulation along the periphery of the bilateral lung bases, new since the prior study. EKG leads project over the chest. There is no demonstrated pleural abnormality. Normal size heart. Normal mediastinum and marcia. Normal visualized pulmonary arteries. Normal visualized aortic arch and descending thoracic aorta. Normal visualized thoracic spine. Normal visualized ribs, clavicles, and shoulders. There is no demonstrated abnormality of the visualized soft tissue structures of the upper abdomen. RAD/Chest 1 View (Portable) IMPRESSION: 1. Early infiltrates in the bilateral lung bases suggesting pneumonia, including viral/atypical causes. Electronically Signed: Lalit Gupta MD ([place]) at 15:26 EST , Service support ,
[2020-09-27 15:25] LABS: Bacteria 3+ /hpf (None Seen); Red Blood Cells-Urine 0-5 SEEN /hpf (0-5); Squamous Epithelial Cells - UA 5-10 SEEN /hpf (5-10); White Blood Cells 5-10 SEEN /hpf (0-5)
[2020-09-27 15:28] LABS: Anion Gap 5 (5-15); BUN 29 mg/dL (7-18); BUN/Creat Ratio 30.8 RATIO (10-20); Calcium,Total 8.8 mg/dL (8.5-10.1); Chloride 106 mmol/L (98-107); Creatinine, Serum 0.94 mg/dL (0.55-1.02); EST Glomerular Filtration Rate 61 mL/min (>60); Est Glom Filt Rate - Afr Amer 74 mL/min (>60); Estimated Creatinine Clearance 39.01 ml/min; Glucose 137 mg/dL (74-106); Potassium 2.3 mmol/L (3.5-5.1); Sodium Level 141 mmol/L (136-145)
[2020-09-27 15:40] LABS: Magnesium 2.2 mg/dL (1.6-2.6)
[2020-09-27] MEDS: 0.9% Normal Saline 1,000 ML 999 ML IV (16:01)
[2020-09-27] MEDS: Ceftriaxone 1 GM/50 ML BAG IV (16:01)
[2020-09-27 16:44] LABS: Probe Check PASS; Specimen Processing Control PASS
[2020-09-27] MEDS: Potassium Chloride 10mEq/100mL 10 MEQ/100 ML IV.SOLN. 100 MEQ IV BOLUS ×3 (17:30→23:10)
--- NOTE | 2020-09-27 17:43 | PCM.HP.STD ---
Problem List (1) Generalized weakness Status: Acute (2) Hypokalemia Status: Acute (3) Myasthenia gravis Status: Chronic (4) MAGALIE (obstructive sleep apnea) Status: Chronic (5) Carotid artery disease Status: Chronic Qualifiers: Carotid artery disease type: unspecified Laterality: unspecified laterality Qualified Code(s): I77.9 - Disorder of arteries and arterioles, unspecified (6) Hyperlipidemia Status: Chronic Qualifiers: Hyperlipidemia type: unspecified Qualified Code(s): E78.5 - Hyperlipidemia, unspecified (7) Hypothyroidism Status: Chronic Qualifiers: Hypothyroidism type: unspecified Qualified Code(s): E03.9 - Hypothyroidism, unspecified (8) Essential hypertension Status: Chronic History of Present Illness Date of Admission: 09/27/20 Chief Complaint: Generalised weakness The patient is a 80 year old F past medical history of myasthenia gravis who comes in with generalized weakness ongoing for weeks. Shunt is a poor historian. She stated that her symptoms have been going on for weeks, probably a little after Thanksgiving. She has been having generalized progressive weakness. Denied any fever or chills or shortness of breath or cough. She had diarrhea earlier on as well as nausea. No more having diarrhea or abdominal pain or nausea or vomiting. Vitals in the ED showed temperature of 96.3F, blood pressure 149/65, heart rate 87, respiratory rate 18, SPO2 is 95% on room air. Her WBC count is 9.6, hemoglobin 13.3, platelet count 348. Sodium is 141, potassium 2.2, chloride 106, bicarbonate 30, BUN is 29, creatinine 0.94, magnesium 2.2, troponin 0.015. Her admitting chest x-ray showed early infiltrates in the bilateral lung bases suggestive of pneumonia. Past Medical History Past Medical History (Chronic Problems): Chronic Problems (Last Reviewed 02/25/20 @ 11:[address] Isiah Ramirez DO) BMI 31.0-31.9,adult (Chronic) Myasthenia gravis (Chronic) MAGALIE (obstructive sleep apnea) (Chronic) Carotid artery disease (Chronic) Hyperlipidemia (Chronic) Abnormal EKG (Chronic) Hypothyroidism (Chronic) Essential hypertension (Chronic) Medical History: Medical History (Last Reviewed 09/27/20 @ 18:[address] Kirsten Collins MD) Rectal bleeding (Acute) K62.5 Carotid artery disease (Chronic) I77.9 Hyperlipidemia (Chronic) E78.5 Hypersomnia (Acute) G47.10 Dizziness (Acute) R42 Abnormal EKG (Chronic) R94.31 Hypothyroidism (Chronic) E03.9 Essential hypertension (Chronic) I10 Myasthenia gravis G70.00 Ovarian cyst N83.209 Removed Allergies Penicillins Adverse Reaction (Intermediate, Verified 09/27/20 14:11) GI upset Home Medications: Ambulatory Orders Medication Instructions Recorded hydrochlorothiazide 25 mg tablet 25 mg PO DAILY 11/24/18 levothyroxine 88 mcg tablet 88 mcg PO DAILY 11/24/18 mycophenolate mofetil 500 mg tablet 500 mg PO BID 04/25/19 pyridostigmine bromide 60 mg tablet 60 mg PO TID tab 04/25/19 losartan 50 mg tablet 50 mg PO DAILY 09/19/19 Surgical History: Surgical History (Last Reviewed 02/25/20 @ 11:[address] 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 Isiah Ramirez DO) Father CVA (cerebral vascular accident) Mother Alzheimer's disease History Items: Dementia Paternal Family History: Family History (Last Reviewed 02/25/20 @ 11:[address] Isiah Ramirez DO) Father CVA (cerebral vascular accident) Mother Alzheimer's disease History Items: Stroke Review of Systems Constitutional: Reports: Anorexia, Malaise, Weakness, Fatigue. Denies: Chills, Fever, Night Sweats, Weight Change Eyes: Denies: Blurred vision, Cataracts, Conjunctivae Inflammation, Pain, Redness, Vision Change HEENT: Denies: Difficulty Hearing, Difficulty Swallowing, Head Aches, Hearing Changes, Sinus Congestion, Sinus Drainage, Sore Throat Cardiovascular: Denies: Chest Pain, Claudication, Orthopnea, Palpitations Respiratory: Denies: Cough, Hemoptysis, Shortness of breath at rest, Shortness of breath upon exertion, Sputum production Gastrointestinal: Denies: Abdominal Pain, Hematemesis, Hematochezia, Nausea, Vomiting Genitourinary: Denies: Dysuria, Frequency Musculoskeletal: Denies: Joint Pain, Joint stiffness, Joint swelling, Joint Tenderness Skin: Denies: Pruritis, Rash, Wounds Neurological: Denies: Difficulty swallowing, Focal weakness, Numbness, Tingling Psychiatric: Denies: Anxiety, Depression, Homicidal Ideations, Suicidal Ideations Hematologic/ Lymphatic: Denies: Easy Bruising, Easy Bleeding VTE Information - Inpt Only VTE Present on Admission: No VTE Pharm Prophylaxis ordered?: Yes Patient Problems: Active and Suspected Problems (Last Reviewed 02/25/20 @ 11:[address] Isiah Ramirez, DO) Generalized weakness (Acute) Hypokalemia (Acute) UTI (urinary tract infection) (Acute) - Physical Exam Vitals/I&O's: Vital Signs Temp Pulse Resp BP Pulse Ox 96.3 F L 87 15 162/92 H 97 09/27/20 14:11 09/27/20 16:22 09/27/20 16:22 09/27/20 16:22 09/27/20 16:22 Oxygen Delivery Method Room Air Weight: 72.575 kg Body Mass Index (BMI) 29.2 Finger Stick Blood Glucose 97 General: Alert, Oriented x3, Cooperative, No apparent distress, - - appears frail HEENT: Atraumatic, PERRLA, EOMI, Normocephalic Oral: Moist Mucosa Neck: Supple Lungs: Clear to auscultation, Normal air movement Cardiovascular: Regular rate, Regular Rhythm, Normal S1, Normal S2, No murmurs Abdomen: Bowel Sounds Present, Soft, Non Tender, Non-Distended, No Hepato-splenomegaly Extremities: No edema Skin: No rashes Musculoskeletal: No Tenderness to Palpation of Joints or Extremities Lymphatic: No Cervical, Supraclavicular, or Inguinal Adenopathy Neurological: Cranial nerves II-XII grossly intact, Neuro grossly intact Psych/Mental Status: Normal Affect, Appropriate Laboratory Results 09/27/20 14:50: WBC 9.6, RBC 4.75, Hgb 13.3, Hct 39.7, MCV 83.6, MCH 28.0, MCHC 33.5, RDW Std Deviation 38.0, RDW Coeff of Arias 12.7, Plt Count 348, MPV 10.2, Immature Gran % (Auto) 0.800, Neut % (Auto) 78.8 H, Lymph % (Auto) 10.1 L, [place] % (Auto) 10.0, Eos % (Auto) 0.0, Baso % (Auto) 0.3, Absolute Neuts (auto) 7.6, Absolute Lymphs (auto) 0.97, Nucleated RBC % 0 09/27/20 14:50: Sodium 141, Potassium 2.3 L*, Chloride 106, Carbon Dioxide 30.0, Anion Gap 5, BUN 29 H, Creatinine 0.94, Estim Creat Clear Calc 39.01, Est GFR (MDRD) Af Amer 74, Est GFR (MDRD) Non-Af 61, BUN/Creatinine Ratio 30.8 H, Glucose 137 H, Calcium 8.8, Troponin I < 0.015 09/27/20 14:50: Magnesium 2.2 09/27/20 14:55: Urine Color Yellow, Urine Clarity Sl. Cloudy, Urine pH 6.0, Ur Specific [place] 1.015, Urine Protein 15 H, Urine Glucose (UA) Normal, Urine Ketones Negative, Urine Occult Blood 10 H, Urine Nitrite Positive H, Urine Bilirubin Negative, Urine Urobilinogen 1 H, Ur Leukocyte Esterase 25 H, Urine RBC 0-5 SEEN, Urine WBC 5-10 SEEN, Ur Squamous Epith Cells 5-10 SEEN, Urine Bacteria 3+, Urine Mucus 0 SEEN 09/27/20 15:40: COVID-19 ([facility]) Detected Current Medications Potassium Chloride () 10 meq in 100 mls @ 100 mls/hr IV BOLUS Q1H DEM[facility] Stop: 09/27/20 19:59 Assessment/Plan All Active Problems (Last Reviewed 02/25/20 @ 11:[address] Isiah Ramirez, DO) Generalized weakness (Acute) Hypokalemia (Acute) UTI (urinary tract infection) (Acute) Rectal bleeding (Acute) Dyspnea on exertion (Acute) Hypersomnia (Acute) Dizziness (Acute) 1. Hypokalemia secondary to hydrochlorothiazide use/recent diarrhea Potassium was 2.3, magnesium is 2.2; replaced, recheck in a.m. 2. Acute COVID-19 pneumonia without hypoxia Admitting chest x-ray shows bilateral infiltrates Patient is not being clear on when her symptoms started is also sick with pneumonia Would hold off on starting dexamethasone, encourage use of incentive spirometer 3. Generalized weakness secondary to hypokalemia/acute COVID-19 infection Patient has underlining myasthenia gravis; dependent on a walker/wheelchair PT/OT to evaluate and treat 4. Myasthenia gravis, on mycophenolate and pyridostigmine Would hold mycophenolate for now Continue on pyridostigmine 5. Hypothyroidism, on replacement 6. Hypertension, uncontrolled Continue on losartan, hold hydrochlorothiazide on account of hypokalemia We will add hydralazine as needed 7. DVT- Heparin SC 8. CODE STATUS: Full code I discussed and explained in details the various types of CODE STATUS-full code, DNR CCA, DNR CC. Patient would like to have aggressive measures. She chose full code. Time spent discussing CODE STATUS 16 minutes Inpatient E&M: 31840 Init Hosp L3 Procedures: 37641 Advncd Care Plan 30 Min
[2020-09-27] MEDS: Potassium Chloride 10mEq/100mL 10 MEQ/100 ML IV.SOLN. 75 MEQ IV BOLUS (18:59)
--- NOTE | 2020-09-27 20:03 | PCS.PANDOC ---
PANDEMIC DOCUMENTATION INITIATED: Date: 09/27/20 Time: 1844
[2020-09-27 20:08] LABS: AST(SGOT) 20 U/L (15-37); Alanine Aminotransfer ALT/SGPT 20 U/L (13-56); Albumin, Serum 3.2 g/dL (3.2-5.0); Alkaline Phosphatase 75 U/L (45-117); Bilirubin, Direct 0.43 mg/dL (0.00-0.30); Globulin 4.6 g/dL (2.2-4.2); Protein, Total 7.8 g/dL (6.4-8.2)
[2020-09-27] MEDS: Enoxaparin 40 MG/0.4 ML Syringe SC (20:54)
[2020-09-27] MEDS: Acetaminophen 325 MG Tablet 650 MG PO (20:55)
[2020-09-27] MEDS: 0.9% Normal Saline 1,000 ML 75 ML IV (23:11)
[2020-09-28] VITALS (9 sets, daily range): BP systolic 138–154; BP diastolic 63–84; PULSE 66–125; RESP 17–19; TEMP 36.6–37.4; O2SAT 94–97
[2020-09-28 05:55] LABS: Absolute Lymphocyte Count 1.46 X10^3/uL (0.83-4.51); Absolute Neutrophil Count 4.9 X10^3/uL (2.0-7.7); Basophil# 0.02 X10^3/uL; Basophil% 0.3 % (0-1); Eosinophil# 0.01 X10^3/uL; Eosinophils% 0.1 % (0-5); Hematocrit 34.1 % (37-47); Hemoglobin 11.3 g/dL (12.0-15.0); Lymphocyte # 1.46 X10^3/ul (4.0); Lymphocyte % 19.8 % (19-41); Mean Corp Hgb Conc 33.1 g/dL (32-36); Mean Corpuscular Hgb 27.8 pg (27.0-32.0); Mean Platelet Vol. 10.5 fl (6.2-12.0); Monocyte# 0.89 X10^3/uL; Monocyte% 12.1 % (0-10); NRBC Flagged by Analyzer 0 % (0-5); Neutrophil # 4.94 X10^3/uL (2.7-7.7); Neutrophil % 66.9 % (47-70); Platelet Count 311 K/mm3 (150-450); RBC Distribution Width CV 12.6 % (11.6-14.6); RBC Distribution Width SD 38.1 fl (35.1-43.9); Red Blood Count 4.06 M/mm3 (4.2-5.4); White Blood Count 7.4 K/mm3 (4.4-11.0)
[2020-09-28 06:23] LABS: ALB/GLOB Ratio 0.7 RATIO (0.9-2.4); AST(SGOT) 15 U/L (15-37); Alanine Aminotransfer ALT/SGPT 14 U/L (13-56); Albumin, Serum 2.4 g/dL (3.2-5.0); Alkaline Phosphatase 56 U/L (45-117); Anion Gap 3 (5-15); BUN 20 mg/dL (7-18); BUN/Creat Ratio 32.9 RATIO (10-20); Chloride 114 mmol/L (98-107); Creatinine, Serum 0.61 mg/dL (0.55-1.02); EST Glomerular Filtration Rate 101 mL/min (>60); Est Glom Filt Rate - Afr Amer 122 mL/min (>60); Estimated Creatinine Clearance 36.67 ml/min; Globulin 3.6 g/dL (2.2-4.2); Glucose 94 mg/dL (74-106); Potassium 3.2 mmol/L (3.5-5.1); Sodium Level 144 mmol/L (136-145)
[2020-09-28] MEDS: 0.9% Normal Saline 1,000 ML 75 ML IV (06:40)
[2020-09-28] MEDS: Enoxaparin 40 MG/0.4 ML Syringe SC (07:46)
[2020-09-28] MEDS: Pyridostigmine Bromide 60 MG Tablet PO ×2 (14:38→20:32)
--- NOTE | 2020-09-28 15:36 | PCM.PN.HOSP ---
Patient Problems: Active and Suspected Problems (Last Reviewed 09/27/20 @ 18:[address] Kirsten Collins MD) Generalized weakness (Acute) Hypokalemia (Acute) UTI (urinary tract infection) (Acute) COVID-19 (Acute) Subjective: Doing well today. States that she feels little bit stronger when she walks to the bathroom. No issues overnight Vitals/I&O's: Vital Signs Temp Pulse Resp BP Pulse Ox 98.9 F 91 19 H 140/82 H 96 09/28/20 14:36 09/28/20 15:21 09/28/20 14:36 09/28/20 14:36 09/28/20 14:36 Oxygen Delivery Method Room Air Weight: 173 lb 3.193 oz Body Mass Index (BMI) 31.1 Finger Stick Blood Glucose 97 Intake and Output for Last 24 Hours 09/26/20 09/27/20 09/28/20 23:59 23:59 23:59 Intake Total 1350.00 / 2350.00 1826.25 / 1826.25 Balance 1350.00 / 2350.00 1826.25 / 1826.25 General: Alert, Oriented x3, Cooperative, No apparent distress HEENT: Atraumatic, PERRLA, EOMI, Normocephalic Oral: Moist Mucosa Neck: Supple, No JVD Lungs: Normal air movement, No rhonchi, No wheeze, No rales, Diminished Cardiovascular: Regular rate, Regular Rhythm, Normal S1, Normal S2, No murmurs Abdomen: Soft, Non Tender, Non-Distended, No Hepato-splenomegaly Extremities: No edema, Capillary Refill Less than 3 Seconds Skin: No rashes, No breakdown Neurological: Neuro grossly intact, Sensory exam intact to light touch and pain Psych/Mental Status: Normal Affect, Appropriate Microbiology Past 72 Hours 09/27/20 14:55 Urine, Catheterized Urine Culture - Preliminary Presumptive E. coli Laboratory Results 09/27/20 14:50: Magnesium 2.2 09/27/20 14:50: Total Bilirubin 1.10 H, Direct Bilirubin 0.43 H, AST 20, ALT 20, Alkaline Phosphatase 75, Total Protein 7.8, Albumin 3.2, Globulin 4.6 H 09/27/20 15:40: COVID-19 ([facility]) Detected 09/28/20 05:03: WBC 7.4, RBC 4.06 L, Hgb 11.3 L, Hct 34.1 L, MCV 84.0, MCH 27.8, MCHC 33.1, RDW Std Deviation 38.1, RDW Coeff of Arias 12.6, Plt Count 311, MPV 10.5, Immature Gran % (Auto) 0.800, Neut % (Auto) 66.9, Lymph % (Auto) 19.8, [place] % (Auto) 12.1 H, Eos % (Auto) 0.1, Baso % (Auto) 0.3, Absolute Neuts (auto) 4.9, Absolute Lymphs (auto) 1.46, Nucleated RBC % 0 09/28/20 05:03: Sodium 144, Potassium 3.2 L, Chloride 114 H, Carbon Dioxide 27.0, Anion Gap 3 L, BUN 20 H, Creatinine 0.61, Estim Creat Clear Calc 36.67, Est GFR (MDRD) Af Amer 122, Est GFR (MDRD) Non-Af 101, BUN/Creatinine Ratio 32.9 H, Glucose 94, Calcium 8.0 L, Total Bilirubin 0.80, AST 15, ALT 14, Alkaline Phosphatase 56, Total Protein 6.0 L, Albumin 2.4 L, Globulin 3.6, Albumin/Globulin Ratio 0.7 L Current Medications Acetaminophen (Acetaminophen 325 Mg Tablet) 650 mg PO Q6H PRN PRN PRN Reason: Pain Score 1-10/Temp > 100.7 F Last Admin: 09/27/20 20:55 Dose: 650 mg Documented by: Albuterol Sulfate (Albuterol 2.5 Mg/3 Ml Vial.Neb.) 2.5 mg INHALATION Q2H PRN PRN PRN Reason: Shortness of Breath/Wheezing Enoxaparin Sodium (Enoxaparin 40 Mg/0.4 Ml Syringe) 40 mg SC DAILY [facility] Last Admin: 09/28/20 07:46 Dose: 40 mg Documented by: Sodium Chloride () 250 mls @ 15 mls/hr IV .[id number] PRN PRN Reason: Saline Flush Sodium Chloride () 250 mls @ 15 mls/hr IV .[id number] PRN PRN Reason: Additional IVPB Infusion Ceftriaxone Sodium (Rocephin) 1 gm in 50 mls @ 100 mls/hr IV Q24 [facility] Levothyroxine Sodium (Levothyroxine 88 Mcg Tablet) 88 mcg PO DAILY@0600 [facility] Losartan Potassium (Losartan Potassium 50 Mg Tablet) 50 mg PO DAILY [facility] Ondansetron HCl (Ondansetron 4 Mg/2 Ml Vial) 4 mg IV Q8H PRN PRN PRN Reason: NAUSEA/VOMITING Psyllium Hydrophilic Mucilloid (Psyllium 1 Packet) 1 packet PO DAILY PRN PRN PRN Reason: Constipation Pyridostigmine [place] (Pyridostigmine [place] 60 Mg Tablet) 60 mg PO Q8 [facility] Last Admin: 09/28/20 14:38 Dose: 60 mg Documented by: Sodium Chloride (0.9% Saline Lock 10 Ml Syringe) 10 - 40 ml IV UD PRN PRN Reason: SALINE FLUSH STROKE Vital Signs/Narrative: Vital Signs Temp Pulse Resp BP Pulse Ox 09/28/20 15:21 91 09/28/20 14:36 98.9 F 99 19 H 140/82 H 96 Medical Necessity - Tobacco Use Smoking Status: Never smoker Tobacco Use: Non-smoker Assessment/Plan All Active Problems (Last Reviewed 09/27/20 @ 18:[address] Kirsten Collins MD) Generalized weakness (Acute) Hypokalemia (Acute) UTI (urinary tract infection) (Acute) COVID-19 (Acute) Rectal bleeding (Acute) Dyspnea on exertion (Acute) Hypersomnia (Acute) Dizziness (Acute) 1. Acute COVID-19 pneumonia with hypoxia/generalized weakness secondary to hypokalemia and Covid and UTI -We will hold her HCTZ for her hypokalemia and replace as necessary -Unsure exactly when her symptoms started, she states 3weeks a few days. We will hold off on dexamethasone and remdesivir at this time -PT/OT -Likely combination aggravation of her myasthenia gravis secondary to Covid infection and inflammation. -Likely asymptomatic bacteriuria however given her presentation her weakness may be a sign of a UTI therefore will treat with Rocephin since she has E. coli greater than 100,000 CFU 2. Myasthenia gravis -Disease has been stable -We will hold her mycophenolate however continue with her pyridostigmine 3. Hypothyroidism -Stable -Continue with Synthroid 4. HTN/HLD -We will hold her hydrochlorothiazide secondary to hypokalemia -Can continue with her losartan -Blood pressure is stable DVT: Lovenox Inpatient E&M: 15734 Subs Hosp L2
--- NOTE | 2020-09-28 22:12 | NURSING ---
This RN called Armida (daughter) to update her on pt. Informed that pt is doing well on RA, resting for the night. Will not call anymore through the night unless pt's status changes. Armida voiced understanding and does not have further questions at this time.
[2020-09-29] VITALS (10 sets, daily range): BP systolic 132–159; BP diastolic 76–98; PULSE 66–93; RESP 16; TEMP 37.2–37.6; O2SAT 94–99
[2020-09-29 05:18] LABS: Absolute Lymphocyte Count 1.46 X10^3/uL (0.83-4.51); Absolute Neutrophil Count 5.5 X10^3/uL (2.0-7.7); Basophil# 0.03 X10^3/uL; Basophil% 0.4 % (0-1); Eosinophil# 0.03 X10^3/uL; Eosinophils% 0.4 % (0-5); Hematocrit 33.8 % (37-47); Hemoglobin 11.2 g/dL (12.0-15.0); Lymphocyte # 1.46 X10^3/ul (4.0); Lymphocyte % 18.4 % (19-41); Mean Corp Hgb Conc 33.1 g/dL (32-36); Mean Corpuscular Hgb 27.8 pg (27.0-32.0); Mean Corpuscular Volume 83.9 fL (81-99); Mean Platelet Vol. 10.2 fl (6.2-12.0); Monocyte# 0.91 X10^3/uL; Monocyte% 11.4 % (0-10); NRBC Flagged by Analyzer 0 % (0-5); Neutrophil # 5.45 X10^3/uL (2.7-7.7); Neutrophil % 68.5 % (47-70); Platelet Count 311 K/mm3 (150-450); RBC Distribution Width CV 12.8 % (11.6-14.6); Red Blood Count 4.03 M/mm3 (4.2-5.4)
[2020-09-29 05:33] LABS: Anion Gap 4 (5-15); BUN 13 mg/dL (7-18); BUN/Creat Ratio 24.8 RATIO (10-20); Calcium,Total 8.1 mg/dL (8.5-10.1); Chloride 112 mmol/L (98-107); Creatinine, Serum 0.52 mg/dL (0.55-1.02); EST Glomerular Filtration Rate 120 mL/min (>60); Est Glom Filt Rate - Afr Amer 145 mL/min (>60); Estimated Creatinine Clearance 36.67 ml/min; Glucose 100 mg/dL (74-106); Potassium 3.3 mmol/L (3.5-5.1); Sodium Level 142 mmol/L (136-145)
[2020-09-29] MEDS: Levothyroxine 88 MCG Tablet PO (06:10)
[2020-09-29] MEDS: Pyridostigmine Bromide 60 MG Tablet PO ×3 (06:10→17:10)
--- NOTE | 2020-09-29 09:40 | CASEMGMT ---
RN CM called patient in room for initial transition planning/care coordination assessment. RN CM introduced self and role at [facility]. Patient is alert and oriented. Patient willing to participate in assessment and is able to answer all questions appropriately. Care providers, pharmacy, and demographics verified. Patient wishes to discharge home, denies need for home health at this time. Patient states she has no further needs or concerns at this time. CM to follow for discharge planning needs that may arise. PCP: Lance Specialists: [facility] Insurance: [employer] Prescription Benefit: yes Living Will/HPOA: yes, daughter Armida Ramirez LNOK: , daughter Living Arrangements: Patient lives with in a single story home with 1 step and railing to enter the home. Patient states she is independent at home but or daughter assist with showering. Transportation: daughter DME/HHC: Patient states she has shower chair, cane, walker, wheelchair, and cpap at home. Patient denies previous HHC. Disposition Plan: Patient to discharge home with family support and follow-up plans in place. Anjali HERRERA, RN, CM
--- NOTE | 2020-09-29 10:17 | CASEMGMT ---
Addendum entered by Brodie Hammonds 09/29/20 10:42: Call received from Armida Ramirez, daughter. She states her father is staying with her until patient returns home. He is still weak, but recovering. Daughter was tearful and overwhelmed with helping to care for her parents and her own family and states her mother could not return home until she was independent with ambulation. RAY REAL explained that per nursing, patient's activity level was improved from yesterday, and PT/OT would work with her today. Daughter thought patient may need SNF on discharge for rehab and would like [facility]. Explained that [facility] SNF's have not been taking covid patients, and patient may need to go outside of [facility]. However, if patient is safe to go home, [facility] could be looked into and CM will speak with patient after therapy. -Daughter is available to bring groceries, meals and help with bathing if needed on dc. Etta PONCE Original Note: RAY REAL Note: Daughter called to speak with CM. Returned call and message left with Armida randall with call back information. -Call to [facility] to request they see pt this am if possible to ascertain if further therapy is needed. Per nursing, patient is SBA 1 for ambulation. Etta PONCE
[2020-09-29] MEDS: 0.9% Saline Lock 10 ML Syringe IV (10:25)
[2020-09-29] MEDS: Ceftriaxone 1 GM/50 ML BAG IV (10:25)
[2020-09-29] MEDS: Losartan Potassium 50 MG Tablet PO (10:25)
[2020-09-29] MEDS: Enoxaparin 40 MG/0.4 ML Syringe SC (10:26)
--- NOTE | 2020-09-29 11:25 | PN_ITS ---
Patient Problems: Active and Suspected Problems (Last Reviewed 09/27/20 @ 18:[address] Kirsten Collins MD) Generalized weakness (Acute) Hypokalemia (Acute) UTI (urinary tract infection) (Acute) COVID-19 (Acute) Subjective: Patient seen and examined. She has no complaints and feels well. Review of systems is otherwise negative. She is on room air. Patient noted to have a mild low grade fever per vitals. She is also being managed for UTI, and just started IV ceftriaxone 1 day ago. Review of systems otherwise negative. Vitals/I&O's: Vital Signs Temp Pulse Resp BP Pulse Ox 98.9 F 87 16 132/76 H 97 09/29/20 10:40 09/29/20 10:40 09/29/20 10:40 09/29/20 10:40 09/29/20 11:07 Oxygen Delivery Method Room Air Weight: 176 lb 3.2 oz Body Mass Index (BMI) 31.1 Finger Stick Blood Glucose 97 Intake and Output for Last 24 Hours 09/27/20 09/28/20 09/29/20 23:59 23:59 23:59 Intake Total 1350.00 / 2350.00 3201.25 / 3201.25 475 / 475 Balance 1350.00 / 2350.00 3201.25 / 3201.25 475 / 475 General: Alert, Oriented x3, Cooperative, No apparent distress HEENT: Atraumatic, PERRLA, EOMI, Normocephalic Oral: Dry Mucosa Neck: Supple, No JVD, Negative Carotid Bruits Lungs: Clear to auscultation, Normal air movement, No rhonchi, No wheeze, No rales Cardiovascular: Regular rate, Regular Rhythm, Normal S1, Normal S2, No murmurs Abdomen: Bowel Sounds Present, Soft, Non Tender, Non-Distended, No Hepato- splenomegaly Extremities: No clubbing, No cyanosis, No edema, Capillary Refill Less than 3 Seconds Skin: No rashes, No breakdown Musculoskeletal: No Tenderness to Palpation of Joints or Extremities Lymphatic: No Cervical, Supraclavicular, or Inguinal Adenopathy Neurological: Cranial nerves II-XII grossly intact, Neuro grossly intact, Motor Exam 5/5 strength throughout Psych/Mental Status: Normal Affect, Appropriate, Alert and oriented to time, place, person, mood and affect Microbiology Past 72 Hours 09/27/20 14:55 Urine, Catheterized Urine Culture - Final Presumptive E. coli Laboratory Results 09/29/20 04:28: WBC 8.0, RBC 4.03 L, Hgb 11.2 L, Hct 33.8 L, MCV 83.9, MCH 27.8, MCHC 33.1, RDW Std Deviation 39.0, RDW Coeff of Arias 12.8, Plt Count 311, MPV 10.2, Immature Gran % (Auto) 0.900, Neut % (Auto) 68.5, Lymph % (Auto) 18.4 L, [place] % (Auto) 11.4 H, Eos % (Auto) 0.4, Baso % (Auto) 0.4, Absolute Neuts (auto) 5.5, Absolute Lymphs (auto) 1.46, Nucleated RBC % 0 09/29/20 04:28: Sodium 142, Potassium 3.3 L, Chloride 112 H, Carbon Dioxide 26 .0, Anion Gap 4 L, BUN 13, Creatinine 0.52 L, Estim Creat Clear Calc 36.67, Est GFR (MDRD) Af Amer 145, Est GFR (MDRD) Non-Af 120, BUN/Creatinine Ratio 24.8 H, Glucose 100, Calcium 8.1 L Diagnostic Data Chest X-Ray 09/27/20 15:17 IMPRESSION: 1. Early infiltrates in the bilateral lung bases suggesting pneumonia, including viral/atypical causes. Electronically Signed: Lalit Gupta MD (Brooks) at 15:26 EST , Service support , Current Medications Acetaminophen (Acetaminophen 325 Mg Tablet) 650 mg PO Q6H PRN PRN PRN Reason: Pain Score 1-10/Temp > 100.7 F Last Admin: 09/27/20 20:55 Dose: 650 mg Documented by: Albuterol Sulfate (Albuterol 2.5 Mg/3 Ml Vial.Neb.) 2.5 mg INHALATION Q2H PRN PRN PRN Reason: Shortness of Breath/Wheezing Enoxaparin Sodium (Enoxaparin 40 Mg/0.4 Ml Syringe) 40 mg SC DAILY [facility] Last Admin: 09/29/20 10:26 Dose: 40 mg Documented by: Sodium Chloride () 250 mls @ 15 mls/hr IV .[id number] PRN PRN Reason: Saline Flush Sodium Chloride () 250 mls @ 15 mls/hr IV .[id number] PRN PRN Reason: Additional IVPB Infusion Ceftriaxone Sodium (Rocephin) 1 gm in 50 mls @ 100 mls/hr IV Q24 [facility] Last Admin: 09/29/20 10:25 Dose: 100 mls/hr Documented by: Levothyroxine Sodium (Levothyroxine 88 Mcg Tablet) 88 mcg PO DAILY@0600 [facility] Last Admin: 09/29/20 06:10 Dose: 88 mcg Documented by: Losartan Potassium (Losartan Potassium 50 Mg Tablet) 50 mg PO DAILY [facility] Last Admin: 09/29/20 10:25 Dose: 50 mg Documented by: Ondansetron HCl (Ondansetron 4 Mg/2 Ml Vial) 4 mg IV Q8H PRN PRN PRN Reason: NAUSEA/VOMITING Psyllium Hydrophilic Mucilloid (Psyllium 1 Packet) 1 packet PO DAILY PRN PRN PRN Reason: Constipation Pyridostigmine [place] (Pyridostigmine [place] 60 Mg Tablet) 60 mg PO TIDCM [facility] Last Admin: 09/29/20 10:49 Dose: 60 mg Documented by: Sodium Chloride (0.9% Saline Lock 10 Ml Syringe) 10 - 40 ml IV UD PRN PRN Reason: SALINE FLUSH Last Admin: 09/29/20 10:25 Dose: 10 ml Documented by: STROKE Vital Signs/Narrative: Vital Signs Temp Pulse Resp BP Pulse Ox Pulse Ox Pulse Ox 09/29/20 11:07 94 97 09/29/20 10:40 98.9 F 87 16 132/76 H 97 Medical Necessity - Tobacco Use Smoking Status: Never smoker Tobacco Use: Non-smoker Assessment/Plan All Active Problems (Last Reviewed 09/27/20 @ 18:[address] Kirsten Collins MD) Generalized weakness (Acute) Hypokalemia (Acute) UTI (urinary tract infection) (Acute) COVID-19 (Acute) Rectal bleeding (Acute) Dyspnea on exertion (Acute) Hypersomnia (Acute) Dizziness (Acute) #Acute COVID 19 infection * patient on room air. * has no shortness of breath * hold off on remdesivir or dexamethasone for now. * * # UTI * still having a low grade fever. Temp was 99.4F this morning * on IV ceftriaxone * urine cultured E. coli * continue ceftriaxone * #hypokalemia: potassium today is 3.3. Will replace and monitor #Myasthenia gravis * on pyridostigmine * #Hypothyroidism: on synthroid #Hypertension:hCTZ on hold o/a of hypokalemia. On losartan #hyperlipidemia: On statin DVT prophylaxis; lovenox Inpatient E&M: 60425 Subs Hosp L2
--- NOTE | 2020-09-29 16:16 | CHAPLAIN ---
Type of Pastoral Visit ___ Initial Visit ___ Follow-up Visit ___ On-call Visit ___ General Patient Visit ___ Spiritual Assessment ___ Family Conference ___ Bereavement ___ Rapid Response ___ Code Blue ___ Other (describe below) Pastoral Care Referral From ___ Patient ___ Family ___ Nurse ___ Physician ___ Information Management Specialist ___ Independent Insurance Adjuster ___ Other (describe below) Sacrament/Intervention ___ Active listening ___ Anointing ___ Muslim ___ Bereavement ___ Communion ___ Samantha exploration ___ ___ Life review ___ Prayer ___ Reconciliation ___ Sacrament of Sick ___ Supportive presence ___ Wedding ___ Other (describe below) Pastoral Comments phone call attempt made but no answer
[2020-09-30] VITALS (8 sets, daily range): BP systolic 121–148; BP diastolic 77–82; PULSE 61–82; RESP 18; TEMP 36.6–37.2; O2SAT 94–99
[2020-09-30 05:57] LABS: Absolute Lymphocyte Count 1.34 X10^3/uL (0.83-4.51); Absolute Neutrophil Count 5.4 X10^3/uL (2.0-7.7); Basophil# 0.03 X10^3/uL; Basophil% 0.4 % (0-1); Eosinophil# 0.04 X10^3/uL; Eosinophils% 0.5 % (0-5); Hemoglobin 10.8 g/dL (12.0-15.0); Lymphocyte # 1.34 X10^3/ul (4.0); Lymphocyte % 17.1 % (19-41); Mean Corp Hgb Conc 31.8 g/dL (32-36); Mean Corpuscular Hgb 26.9 pg (27.0-32.0); Mean Corpuscular Volume 84.8 fL (81-99); Mean Platelet Vol. 10.1 fl (6.2-12.0); Monocyte# 0.93 X10^3/uL; Monocyte% 11.9 % (0-10); NRBC Flagged by Analyzer 0 % (0-5); Neutrophil % 69.1 % (47-70); Platelet Count 302 K/mm3 (150-450); RBC Distribution Width CV 13.1 % (11.6-14.6); Red Blood Count 4.01 M/mm3 (4.2-5.4); White Blood Count 7.8 K/mm3 (4.4-11.0)
[2020-09-30 06:20] LABS: Anion Gap 3 (5-15); BUN 13 mg/dL (7-18); BUN/Creat Ratio 24.4 RATIO (10-20); Calcium,Total 7.9 mg/dL (8.5-10.1); Chloride 114 mmol/L (98-107); Creatinine, Serum 0.53 mg/dL (0.55-1.02); EST Glomerular Filtration Rate 118 mL/min (>60); Est Glom Filt Rate - Afr Amer 143 mL/min (>60); Estimated Creatinine Clearance 36.67 ml/min; Glucose 92 mg/dL (74-106); Potassium 4.1 mmol/L (3.5-5.1); Sodium Level 143 mmol/L (136-145)
--- NOTE | 2020-09-30 08:45 | CASEMGMT ---
RN CM Note: chart reviewed re: patient's activity. SBA and assist of 1 is being documented. Daughter feels patient needs to be independent on discharge. NATHALIE Contreras will speak with daughter this am. Call to PT to request patient be seen sooner this am so determination for dc planning can be facilitated. Etta HERRERA RN ACM
[2020-09-30] MEDS: Pyridostigmine Bromide 60 MG Tablet PO ×2 (09:39→12:47)
[2020-09-30] MEDS: Enoxaparin 40 MG/0.4 ML Syringe SC (09:39)
[2020-09-30] MEDS: Levothyroxine 88 MCG Tablet PO (09:39)
[2020-09-30] MEDS: Losartan Potassium 50 MG Tablet PO (09:39)
[2020-09-30] MEDS: Ceftriaxone 1 GM/50 ML BAG IV (09:40)
[2020-09-30] MEDS: 0.9% Saline Lock 10 ML Syringe IV (09:40)
--- NOTE | 2020-09-30 10:04 | CASEMGMT ---
Addendum entered by Sania Hillman 09/30/20 12:06: SW spoke w/daughter again, she states spoke to Cami Segura, who is in charge of the independent living at [facility]. She told daughter that if pt does not have symptoms she could go to [facility]. SW explained that this may not be accurate as [facility] has not been taking admissions at all, but SW will call to find out. Daughter states that if [facility] cannot take her, they will likely take pt home. SW called [facility], spoke w/Bella, she is not certain that they will take patients who are COVID+, she states to fax the referral and she will speak with her director of human resources. SW faxed referral. PT/OT just was pt, pt is up independent. SW called daughter, let her know this, and that it does not seem likely that [facility] will take pt, but they are going to look at the referral. SW also let her know that pt was up independent with PT/OT. SW asked daughter what they would like to do. Daughter states they will take pt home, asked about home health. SW explained we will ask pt if she is agreeable, will let her know. NATHALIE called [facility], let Bella know pt is going home. ADDIE called pt and she is agreeable to home health. SW let daughter know. No further needs from SW, pt home today w/family. JEY Bradley Original Note: SW called daughter in regard to discharge plan. SW explained to daughter that in reviewing chart, pt at times needs the assist of one, and other times is standby assist. Daughter explained that pt's is still staying with her and is slowing getting better, however is still weak. SW and daughter spoke about options, home vs. going to a alf to gain strength. Daughter is not sure. SW explained we can see how pt does in therapy today, and see what the physician says. SW explained can email her the list of nursing homes taking COVID+ patients, she would like SW to do so. SW explained will also call [facility] in [place] to see if they are taking COVID+ patients again, as they have in the past. She states understand. Daughter also asked SW to email her the link for the Medicare website with the star ratings, SW explained will do so. SW offered support to daughter SW emailed daughter list of facilities that take COVID+ patients and the Medicare link. SW called [facility], message left. NATHALIE will continue to follow. JEY Bradley
--- NOTE | 2020-09-30 11:43 | PCM.DC ---
- Discharge Diagnoses Current Active Problems: Current Active and Chronic Problems (Last Reviewed 09/27/20 @ 18:[address] Kirsten Collins MD) Generalized weakness (Acute) Hypokalemia (Acute) UTI (urinary tract infection) (Acute) COVID-19 (Acute) Myasthenia gravis (Chronic) MAGALIE (obstructive sleep apnea) (Chronic) Carotid artery disease (Chronic) Hyperlipidemia (Chronic) Hypothyroidism (Chronic) Essential hypertension (Chronic) You will use the following diet at home:: Cardiac Your food should be the consistency of: Regular Your liquids should be the consistency of: Regular/Thin Discharge Activity: Return to Normal Activity Weight Bearing Status: Weight bearing as tolerated Call your doctor if you observe: Fever of 101 or Higher, Shortness of breath, Dizziness, Fainting spells, Swelling in the ankles Instructions: ED Bladder Infection, Female (Adult), Coronavirus Disease 2019 (COVID-19): Overview Additional Instructions: To remain in isolation for 2 weeks after diagnosis, up to 10/11/2020 Allergies/Adverse Reactions: Allergies Penicillins Adverse Reaction (Intermediate, Verified 09/27/20 14:11) GI upset Medications to take at Discharge hydrochlorothiazide 25 mg tablet 25 mg PO DAILY 11/24/18 levothyroxine 88 mcg tablet 88 mcg PO DAILY 11/24/18 mycophenolate mofetil 500 mg tablet 500 mg PO BID 04/25/19 pyridostigmine bromide 60 mg tablet 60 mg PO TID tab 04/25/19 losartan 50 mg tablet 50 mg PO DAILY 09/19/19 Ciprofloxacin [Cipro] 500 mg PO BID #10 tab 09/30/20 The following prescriptions were given: Ciprofloxacin [Cipro] 500 mg PO BID #10 tab Transmission Status: Pending to [id number] Primary Care Physician: Yina Lucas MD [Primary Care Provider] - Please follow up with your Primary Care Physician in: 1-2 weeks Test Results: Test results from this visit will be discussed in further detail at your follow-up appointment, if applicable. Proposed Discharge Date: 09/30/20
--- NOTE | 2020-09-30 11:46 | PCM.DC.SUM ---
Discharge Date and Diagnosis - Problem List Patient Problems: Active and Suspected Problems (Last Reviewed 09/27/20 @ 18:[address] Kirsten Collins MD) Generalized weakness (Acute) Hypokalemia (Acute) UTI (urinary tract infection) (Acute) COVID-19 (Acute) Date of Admission: 09/27/20 Date of Discharge: 09/30/20 - Primary Discharge Diagnosis Acute Problems: Active Problems (Last Reviewed 09/27/20 @ 18:[address] Kirsten Collins MD) Generalized weakness (Acute) Hypokalemia (Acute) UTI (urinary tract infection) (Acute) COVID-19 (Acute) - Secondary Discharge Diagnosis Chronic Problems: Chronic Problems (Last Reviewed 09/27/20 @ 18:[address] Kirsten Collins MD) BMI 31.0-31.9,adult (Chronic) Myasthenia gravis (Chronic) MAGALIE (obstructive sleep apnea) (Chronic) Carotid artery disease (Chronic) Hyperlipidemia (Chronic) Abnormal EKG (Chronic) Hypothyroidism (Chronic) Essential hypertension (Chronic) Hospital Course and Treatment Imaging Results: Diagnostic Data Chest X-Ray 09/27/20 15:17 IMPRESSION: 1. Early infiltrates in the bilateral lung bases suggesting pneumonia, including viral/atypical causes. Electronically Signed: Lalit Gupta MD (Bro[place]) at 15:26 EST , Service support , Operations: None Procedures: None Summary of Care Provided: The patient is a 80 year old F with an extensive past medical history as outlined who was admitted through the ED on 09/27/2020 with a complaint of generalized weakness which had been going on for weeks. She had no associated fever or chills, cough or shortness of breath but did admit to diarrhea as well as nausea which had resolved at time of presentation. Chest x-ray done showed early infiltrates in the bilateral lung bases suggestive of pneumonia UA done was positive for UTI. Covid test was also positive. She was admitted and managed for COVID-19 infection as well as UTI. Patient was on room air throughout admission and did not require any supplemental oxygen and so she was not administered dexamethasone or remdesivir she did not meet the criteria for this. She was started on IV ceftriaxone for UTI. Patient had a mild fever during admission which subsequently resolved. Urine culture showed E. coli which was sensitive to ciprofloxacin. She did well and was discharged home on 09/30/2020. She was discharged a prescription for p.o. ciprofloxacin for 5-day course and was counseled to remain in self-isolation until 10/11/2020, which would be 14 days after she was diagnosed. She is to follow-up with a primary care doctor after she gets out of isolation. Of note, hospital stay was also complicated by mild hypokalemia which resolved with replacement of potassium. Patient seen and examined prior to discharge. She felt well and had no complaints. Review of systems otherwise negative. Labs and vitals reviewed. Home medication reviewed and reconciled. O/E: Vital Signs Temp Pulse Resp BP Pulse Ox 98.4 F 70 18 121/77 H 96 09/30/20 09:35 09/30/20 11:08 09/30/20 09:35 09/30/20 09:35 09/30/20 09:52 [] General: Alert, Oriented x3, Cooperative, No apparent distress HEENT: Atraumatic, PERRLA, EOMI, Normocephalic Oral: Dry Mucosa Neck: Supple, No JVD, Negative Carotid Bruits Lungs: Clear to auscultation, Normal air movement, No rhonchi, No wheeze, No rales Cardiovascular: Regular rate, Regular Rhythm, Normal S1, Normal S2, No murmurs Abdomen: Bowel Sounds Present, Soft, Non Tender, Non-Distended, No Hepato-splenomegaly Extremities: No clubbing, No cyanosis, No edema, Capillary Refill Less than 3 Seconds Skin: No rashes, No breakdown Musculoskeletal: No Tenderness to Palpation of Joints or Extremities Lymphatic: No Cervical, Supraclavicular, or Inguinal Adenopathy Neurological: Cranial nerves II-XII grossly intact, Neuro grossly intact, Motor Exam 5/5 strength throughout Psych/Mental Status: Normal Affect, Appropriate, Alert and oriented to time, place, person, mood and affect Plan is for discharge home today. Patient was saturating at 94% on room air with ambulation and 96% on room air at rest and so did not qualify for home oxygen. Patient Problems: Active and Suspected Problems (Last Reviewed 09/27/20 @ 18:[address] Kirsten Collins MD) Generalized weakness (Acute) Hypokalemia (Acute) UTI (urinary tract infection) (Acute) COVID-19 (Acute) - Physical Exam Vitals/I&O's: Vital Signs Temp Pulse Resp BP Pulse Ox 98.4 F 70 18 121/77 H 96 09/30/20 09:35 09/30/20 11:08 09/30/20 09:35 09/30/20 09:35 09/30/20 09:52 Oxygen Flow Rate (L/min) [ 0 AMBULATING on Room Air] Oxygen Flow Rate (L/min) [At 0 REST on Room Air] Oxygen Delivery Method Room Air Weight: 178 lb 2.136 oz Body Mass Index (BMI) 31.1 Finger Stick Blood Glucose 97 Intake and Output for Last 24 Hours 09/28/20 09/29/20 09/30/20 23:59 23:59 23:59 Intake Total 3201.25 / 3201.25 600 / 600 50 / 50 Output Total 800 / 800 Balance 3201.25 / 3201.25 -200 / -200 50 / 50 Microbiology Past 72 Hours 09/27/20 14:55 Urine, Catheterized Urine Culture - Final Presumptive E. coli Laboratory Results 09/30/20 05:14: WBC 7.8, RBC 4.01 L, Hgb 10.8 L, Hct 34.0 L, MCV 84.8, MCH 26.9 L, MCHC 31.8 L, RDW Std Deviation 40.0, RDW Coeff of Arias 13.1, Plt Count 302, MPV 10.1, Immature Gran % (Auto) 1.000 H, Neut % (Auto) 69.1, Lymph % (Auto) 17.1 L, Vermilion % (Auto) 11.9 H, Eos % (Auto) 0.5, Baso % (Auto) 0.4, Absolute Neuts (auto) 5.4, Absolute Lymphs (auto) 1.34, Nucleated RBC % 0 09/30/20 05:14: Sodium 143, Potassium 4.1, Chloride 114 H, Carbon Dioxide 26.0, Anion Gap 3 L, BUN 13, Creatinine 0.53 L, Estim Creat Clear Calc 36.67, Est GFR (MDRD) Af Amer 143, Est GFR (MDRD) Non-Af 118, BUN/Creatinine Ratio 24.4 H, Glucose 92, Calcium 7.9 L Current Medications Acetaminophen (Acetaminophen 325 Mg Tablet) 650 mg PO Q6H PRN PRN PRN Reason: Pain Score 1-10/Temp > 100.7 F Last Admin: 09/27/20 20:55 Dose: 650 mg Documented by: Albuterol Sulfate (Albuterol 2.5 Mg/3 Ml Vial.Neb.) 2.5 mg INHALATION Q2H PRN PRN PRN Reason: Shortness of Breath/Wheezing Enoxaparin Sodium (Enoxaparin 40 Mg/0.4 Ml Syringe) 40 mg SC DAILY [facility] Last Admin: 09/30/20 09:39 Dose: 40 mg Documented by: Sodium Chloride () 250 mls @ 15 mls/hr IV .[id number] PRN PRN Reason: Saline Flush Sodium Chloride () 250 mls @ 15 mls/hr IV .[id number] PRN PRN Reason: Additional IVPB Infusion Ceftriaxone Sodium (Rocephin) 1 gm in 50 mls @ 100 mls/hr IV Q24 [facility] Last Infusion: 09/30/20 10:40 Dose: Infused Documented by: Levothyroxine Sodium (Levothyroxine 88 Mcg Tablet) 88 mcg PO DAILY [facility] Last Admin: 09/30/20 09:39 Dose: 88 mcg Documented by: Losartan Potassium (Losartan Potassium 50 Mg Tablet) 50 mg PO DAILY [facility] Last Admin: 09/30/20 09:39 Dose: 50 mg Documented by: Ondansetron HCl (Ondansetron 4 Mg/2 Ml Vial) 4 mg IV Q8H PRN PRN PRN Reason: NAUSEA/VOMITING Psyllium Hydrophilic Mucilloid (Psyllium 1 Packet) 1 packet PO DAILY PRN PRN PRN Reason: Constipation Pyridostigmine Magnolia (Pyridostigmine Magnolia 60 Mg Tablet) 60 mg PO TIDCM [facility] Last Admin: 09/30/20 09:39 Dose: 60 mg Documented by: Sodium Chloride (0.9% Saline Lock 10 Ml Syringe) 10 - 40 ml IV UD PRN PRN Reason: SALINE FLUSH Last Admin: 09/30/20 09:40 Dose: 10 ml Documented by: Discharge Activity: Return to Normal Activity Weight Bearing Status: Weight bearing as tolerated Call your doctor if you observe: Fever of 101 or Higher, Shortness of breath, Dizziness, Fainting spells, Swelling in the ankles Home Medications: Medications to take at Discharge hydrochlorothiazide 25 mg tablet 25 mg PO DAILY 11/24/18 levothyroxine 88 mcg tablet 88 mcg PO DAILY 11/24/18 mycophenolate mofetil 500 mg tablet 500 mg PO BID 04/25/19 pyridostigmine bromide 60 mg tablet 60 mg PO TID tab 04/25/19 losartan 50 mg tablet 50 mg PO DAILY 09/19/19 Ciprofloxacin [Cipro] 500 mg PO BID #10 tab 09/30/20 Following Prescriptions Were Given to Patient: Ciprofloxacin [Cipro] 500 mg PO BID #10 tab Transmission Status: Received by [facility] Primary Care Physician: Yina Lucas MD [Primary Care Provider] - Please follow up with your Primary Care Physician in: 1-2 weeks Patient Instructions: Coronavirus Disease 2019 (COVID-19): Overview, ED Bladder Infection, Female (Adult) Medical Necessity - Tobacco Use Smoking Status: Never smoker Tobacco Use: Non-smoker Meaningful Use Info Meaningful Use Diagnoses (Choose all that apply): None applicable Inpatient E&M: 76895 [facility]
--- NOTE | 2020-09-30 12:30 | CASEMGMT ---
RN CM Note: Per occupational therapy- patient is independent, able to get OOB and toileting independent. Plan will be to dc home. Called to patient in room. Discussed homegoing. Patient states she is agreeable to home health SN, PT/OT and aide. Called to [facility] and they cannot accept referral. Call to [facility], message left. Call to [facility] and [facility] will look @ [facility]. [facility] Janay PH: [phone] FX: [phone]
--- NOTE | 2020-09-30 14:42 | CASEMGMT ---
RN CM Note: call received from [facility]. They are able to accept referral for SN, PT, OT, Aide. Patient updated and [facility] phone number placed in dc instructions, copy printed for nurse to give to patient. Call to daughter to update and phone number for [facility] given to her. Daughter was very appreciative of the dc planning assistance by and the home health set up. DC PLAN: Home with [facility]. Cira Avina RN ACM
--- NOTE | 2020-09-30 15:54 | CHAPLAIN ---
Type of Pastoral Visit ___ Initial Visit ___ Follow-up Visit ___ On-call Visit _x__ General Patient Visit ___ Spiritual Assessment ___ Family Conference ___ Bereavement ___ Rapid Response ___ Code Blue _x__ Other (describe below) Pastoral Care Referral From _x__ Patient ___ Family ___ Nurse ___ Physician ___ Manager Market ___ Cnc Laser Operator ___ Other (describe below) Sacrament/Intervention _x__ Active listening ___ Anointing ___ Synagogue ___ Bereavement ___ Communion ___ Samantha exploration ___ ___ Life review ___ Prayer ___ Reconciliation ___ Sacrament of Sick ___ Supportive presence ___ Wedding ___ Other (describe below) Pastoral Comments phone call into patient room as this is an isolation room; pt answered phone and welcomed call; pt stated she is feeling much better and will be discharged today; pt had no other needs or concerns at this time
--- NOTE | 2020-10-01 15:23 | CASEMGMT ---
RAY REAL Discharge Follow-Up Phone Call. Discharge Date: 09/30/20 Adm Dx: Generalized weakness, Hypokalemia, COVID Call to pt to inquire about how she has been doing since being discharged from the hospital. She states she is feeling pretty good. [facility] and she voices much appreciation for them coming to see her. Her daughter picked up her new prescription for the ATB and denies having any questions about that or her other medications. She states her daughter will make appt with Dr Lucas in the next few days. RAY REAL thanked pt for choosing [facility]. She states, I think the staff, the nursing, the aides, just everyone was just so great. Quin HERRERA RN, CM
--- NOTE | 2020-10-01 15:48 | CASEMGMT ---
manager project management COVID follow-up: Call placed to pt for f/u from ED with home O2. RAY REAL inquired of pt how she has been doing. She states, I'm not doing very good even with the oxygen on. Pt reports that even at rest she can barely keep my oxygen level up to 90% and states currently it is 87%. She also reports that with ambulation, it drops down to as low as 70%. She states her did have someone miner pick the Decadron today and she has taken that. RAY REAL strongly advised pt to return to the ER to be re-evaluated and explained to pt that oxygen level is dangerously low and concerns of resp distress. Pt asked this RN ADDIE if she could wait until tomorrow to come return to the ER and also stated, I don't want to have to get admitted. RAY REAL strongly advised pt to come to ER today and informed pt to discuss her concerns about admission with the ER doctor. Pt voices understanding. Quin HERRERA RN, CM
== END 2020-09-30 16:08 | disposition home or self-care (01) | DRG 689 ==
LOC: ED 15:38 → MS2 18:30
PROVIDERS: Emergency Medicine; Family Medicine; Admitting Provider Internal Medicine; Emergency Provider Physician Assistant; PCP Internal Medicine; Visit Provider Student in an Organized Health Care Education/Training Program
DX: N39.0 Urinary tract infection, site not specified (principal); U07.1 COVID-19; J12.89 Other viral pneumonia; R09.02 Hypoxemia; B96.20 Unspecified Escherichia coli [E. coli] as the cause of diseases classified elsewhere; E87.6 Hypokalemia; T50.2X5A Adverse effect of carbonic-anhydrase inhibitors, benzothiadiazides and other diuretics, initial encounter; Y92.9 Unspecified place or not applicable; E78.5 Hyperlipidemia, unspecified; G47.33 Obstructive sleep apnea (adult) (pediatric); E03.9 Hypothyroidism, unspecified; G70.00 Myasthenia gravis without (acute) exacerbation; I10 Essential (primary) hypertension; I65.29 Occlusion and stenosis of unspecified carotid artery; Z79.899 Other long term (current) drug therapy
CPT/HCPCS: 36415; 71045; 80048; 80053; 80076; 81001; 83735; 84484; 85025; 87086; 87088; 87186; 87635; 93005; 97116; 97162; 97166; 97530; 97535; 99251; 99285; J7030; A4216; G0463; U0002

== ENCOUNTER 2023-01-07 13:12 | Inpatient (IN) | payer MEDICARE, OTHER, SELFPAY ==
[2023-01-07 13:13] VITALS: BP 173/85; PULSE 73; RESP 14; TEMP 36.1; O2SAT 98
[2023-01-07 14:24] LABS: Absolute Lymphocyte Count 0.41 X10^3/uL (0.83-4.51); Absolute Neutrophil Count 12.2 X10^3/uL (2.0-7.7); Basophil# 0.03 X10^3/uL; Basophil% 0.2 % (0-1); Differential Indicated SCAN CRITERIA MET; Eosinophil# 0.02 X10^3/uL; Eosinophils% 0.2 % (0-5); Hematocrit 43.9 % (37-47); Hemoglobin 14.5 g/dL (12.0-15.0); Lymphocyte # 0.41 X10^3/ul (0.83-4.51); Lymphocyte % 3.2 % (19-41); Mean Corpuscular Hgb 27.5 pg (27.0-32.0); Mean Corpuscular Volume 83.3 fL (81-99); Monocyte# 0.21 X10^3/uL; Monocyte% 1.6 % (0-10); NRBC Flagged by Analyzer 0 % (0-5); Neutrophil # 12.24 X10^3/uL (2.7-7.7); Neutrophil % 94.3 % (47-70); POSITIVE DIFFERENTIAL YES; Platelet Count 450 K/mm3 (150-450); RBC Distribution Width CV 12.8 % (11.6-14.6); RBC Distribution Width SD 38.5 fl (35.1-43.9); Red Blood Count 5.27 M/mm3 (4.2-5.4)
[2023-01-07 14:37] LABS: Anion Gap 10 (5-15); BUN 20 mg/dL (7-18); BUN/Creat Ratio 24.2 RATIO (10-20); Calcium,Total 9.5 mg/dL (8.5-10.1); Chloride 105 mmol/L (98-107); Creatinine, Serum 0.83 mg/dL (0.55-1.02); EST Glomerular Filtration Rate 71 mL/min (>60); Est Glom Filt Rate - Afr Amer 85 mL/min (>60); Glucose 140 mg/dL (74-106); Potassium 3.8 mmol/L (3.5-5.1); Sodium Level 141 mmol/L (136-145)
[2023-01-07 14:42] VITALS: BP 158/91; PULSE 68; RESP 21; O2SAT 97; BMI 38.0
--- NOTE | 2023-01-07 14:43 | EKG12_ITS ---
Test Reason : Blood Pressure : / mmHG Vent. Rate : 071 BPM Atrial Rate : 071 BPM P-R Int : 198 ms QRS Dur : 088 ms QT Int : 426 ms P-R-T Axes : 035 -06 025 degrees QTc Int : 462 ms Sinus rhythm with marked sinus arrhythmia Minimal voltage criteria for LVH, may be normal variant ( R in aVL ) Inferior infarct , age undetermined Cannot rule out Anterior infarct , age undetermined Abnormal ECG Confirmed by SANGEETA GONZALEZ, PONCHO ([id number]), editor news EFREM CHOWDHURY ([id number]) on 01/10/2023 2:18:05 PM Referred By: Confirmed By:PONCHO RUTHERFORD MD
--- NOTE | 2023-01-07 14:58 | EX.ED.DYSGE1 ---
HPI History of Present Illness Chief Complaint: Hypertension Informant: patient and family Narrative Narrative: Patient is an 82-year-old female with history of hypothyroid, myasthenia gravis, hypertension presenting for worsening nausea and vomiting. Patient was vomiting every 20 minutes this morning. She is not feeling well and continues to feel nauseous. Some hard time taking her medications. She has had abnormal bowel movements over the past few weeks and was having frequent small/hard bowel movements and then started having diarrhea. Patient is complained of some mild generalized abdominal pain. No report of any blood in her vomit or her stool. She currently says she is not feeling good and is weak. She is a resident of [place]. Denies any chest pain or difficulty breathing. No other complaints at this time [facility] Medical History (Updated 01/07/23 @ 22:[address] Kareen Banks DO) Abnormal EKG Carotid artery disease Dizziness Essential hypertension Hyperlipidemia Hypersomnia Hypothyroidism Myasthenia gravis Ovarian cyst Rectal bleeding Home Medications hydrochlorothiazide 25 mg tablet 25 mg PO DAILY bp 11/24/18 [History Last Taken 01/06/23] levothyroxine 88 mcg tablet 88 mcg PO DAILY thyroid 11/24/18 [History Last Taken 01/07/23] mycophenolate mofetil 500 mg tablet (CellCept) 500 mg PO BID MG 04/25/19 [History Last Taken 01/06/23] pyridostigmine bromide 60 mg tablet 60 mg PO TID mystensia gravis 04/25/19 [History Last Taken 01/06/23] losartan 50 mg tablet (Cozaar) 50 mg PO DAILY heart 09/19/19 [History Last Taken 01/06/23] Allergy/AdvReac Type Severity Reaction Status Date / Time Penicillins AdvReac Intermediate GI upset Verified 01/07/23 14:43 Family History Father CVA (cerebral vascular accident) Mother Alzheimer's disease Surgical History History of appendectomy History of tonsillectomy Social History Smoking Status: Never smoker second hand exposure: No alcohol intake: never substance use type: does not use caffeine: Yes ROS ROS ED Constitutional Constitutional ED: Denies chills or fever(s) Eyes Eyes: Denies change in vision ENT ENT ED: Denies sore throat Cardiovascular Cardiovascular: Denies chest pain Respiratory/Chest Respiratory/Chest: Denies cough or dyspnea Gastrointestinal Gastrointestinal: Reports abdominal pain, constipation, diarrhea, nausea and vomiting Musculoskeletal Musculoskeletal: Denies arthralgias or myalgias Integumentary Denies rash Neurologic Neurologic: Reports weakness; Denies headache(s) or paresthesias Psychiatric Psychiatric: Denies anxiety Hematologic/Lymphatic Hematologic/Lymphatic: Denies easy bleeding or easy bruising EXAM Physical Exam Const Vital Signs: 01/07/23 13:13 01/07/23 14:42 01/07/23 14:43 Temperature 97 F L Temperature Source Temporal Pulse Rate 73 68 Respiratory Rate 14 21 H Respiratory Effort Normal Non-Labored Respiratory Pattern Normal Blood Pressure 173/85 H 158/91 H Blood Pressure Mean 114 113 Pulse Ox 98 97 Oxygen Delivery Method Room Air Room Air 01/07/23 16:05 01/07/23 19:02 01/07/23 19:10 Temperature 98.9 F Temperature Source Temporal Pulse Rate 88 79 80 Respiratory Rate 16 16 12 Respiratory Effort Respiratory Pattern Blood Pressure 177/94 H 179/90 H 179/90 H Blood Pressure Mean 121 119 119 Pulse Ox 96 96 92 Oxygen Delivery Method Room Air Room Air Room Air Positive well nourished and well developed General Appearance ED: well developed, NAD and pallor HEENT Reports dry mucous membranes Mouth ED: Yes dry mucous membranes Mouth: dry mucous membranes Eyes PERRL and EOMs intact bilaterally Neck supple Chest Wall inspection of chest normal and palpation of chest normal Resp normal respiratory effort and clear to auscultation bilaterally Cardio regular rate, regular rhythm and no murmurs GI Inspection: abdominal distention Auscultation: normoactive bowel sounds Palpation: soft and tender; Negative for guarding or mass Back/Spine no CVA tenderness Extremity normal to inspection General Extremety ED: Negative for edema or tenderness General Extremity: Negative for edema Neuro oriented x3 Neuro Narrative: No focal deficits appreciated Sensorium / Orientation: alert Motor Exam: general weakness Psych mental status grossly normal Skin no rashes or lesions noted and no wounds General Skin Exam: pallor MDM MDM MDM Narrative Medical decision making narrative: Patient evaluated for generalized weakness, nausea, vomiting and diarrhea. She also having some mild abdominal pain. She has had exposure to rotavirus. She does her blood pressures been high. History is complicated by her history of myasthenia gravis. Patient does have a mild leukocytosis of 13.0. Hemoglobin is normal. CMP largely unremarkable and she has normal liver enzymes. Her bilirubin is normal. Patient does have 150 ketones in her urine consistent with dehydration. Lipase and TSH are normal. EKG does not show any acute ischemic changes. Patient is given IV fluids as well as Zofran in the ER. She is not any vomiting but still continues to feel nauseous and is redosed with the Zofran. CT of the abdomen and pelvis shows cirrhotic changes of the liver as well as ascites and then a heterogenous uterus. The cause of the patient's cirrhosis and ascites are unclear. Patient is unaware of this. Given that she is on CellCept, immune suppressed has a leukocytosis and ascites differential does include spontaneous bacterial peritonitis. Case discussed with ANISA Hoover on-call, who is agreeable with admission and further work-up as well as treatment with IV antibiotics. Patient was started on a dose of Rocephin in the emergency room. Patient continues to be very weak in the emergency room I do not think and go home as she does live in independent living. Patient and her daughter agreeable this plan of care. Cultures are obtained. Patient admitted to the medicine service, case discussed with Dr. Little. Lab Data Labs: Laboratory Results - last 24 hr 01/07/23 01/07/23 01/07/23 14:15 14:15 14:15 WBC 13.0 H RBC 5.27 Hgb 14.5 Hct 43.9 MCV 83.3 MCH 27.5 MCHC 33.0 RDW Std Deviation 38.5 RDW Coeff of Arias 12.8 Plt Count 450 MPV 9.0 Immature Gran % (Auto) 0.500 Neut % (Auto) 94.3 H Lymph % (Auto) 3.2 L Bent % (Auto) 1.6 Eos % (Auto) 0.2 Baso % (Auto) 0.2 Absolute Neuts (auto) 12.2 H Absolute Lymphs (auto) 0.41 L Nucleated RBC % 0 Differential Comment COMMENT ESR Sodium 141 Potassium 3.8 Chloride 105 Carbon Dioxide 26.0 Anion Gap 10 BUN 20 H Creatinine 0.83 Est GFR (MDRD) Af Amer 85 Est GFR (MDRD) Non-Af 71 BUN/Creatinine Ratio 24.2 H Glucose 140 H Calcium 9.5 Ferritin Total Bilirubin 0.60 Direct Bilirubin 0.23 AST 37 ALT 14 Alkaline Phosphatase 82 Ammonia Lactate Dehydrogenase C-React Prot Ext Range Total Protein 7.9 Albumin 3.5 Globulin 4.4 H Lipase TSH Urine Color Urine Clarity Urine pH Ur Specific [place] Urine Protein Urine Glucose (UA) Urine Ketones Urine Occult Blood Urine Nitrite Urine Bilirubin Urine Urobilinogen Ur Leukocyte Esterase Urine RBC Urine WBC Ur Squamous Epith Cells Urine Bacteria Urine Mucus 01/07/23 01/07/23 01/07/23 14:15 15:35 15:57 WBC RBC Hgb Hct MCV MCH MCHC RDW Std Deviation RDW Coeff of Arias Plt Count MPV Immature Gran % (Auto) Neut % (Auto) Lymph % (Auto) Bent % (Auto) Eos % (Auto) Baso % (Auto) Absolute Neuts (auto) Absolute Lymphs (auto) Nucleated RBC % Differential Comment ESR Sodium Potassium Chloride Carbon Dioxide Anion Gap BUN Creatinine Est GFR (MDRD) Af Amer Est GFR (MDRD) Non-Af BUN/Creatinine Ratio Glucose Calcium Ferritin Total Bilirubin Direct Bilirubin AST ALT Alkaline Phosphatase Ammonia < 10.0 L Lactate Dehydrogenase C-React Prot Ext Range Total Protein Albumin Globulin Lipase 56 L TSH 2.00 Urine Color Yellow Urine Clarity Sl. Cloudy Urine pH 6.0 Ur Specific [place] 1.020 Urine Protein 30 H Urine Glucose (UA) Normal Urine Ketones 150 A* Urine Occult Blood 250 H Urine Nitrite Negative Urine Bilirubin Negative Urine Urobilinogen Normal Ur Leukocyte Esterase 25 H Urine RBC 0-5 SEEN Urine WBC 0-5 SEEN Ur Squamous Epith Cells 0-5 SEEN Urine Bacteria RARE Urine Mucus 0 SEEN 01/07/23 01/07/23 01/07/23 18:07 18:07 18:50 WBC RBC Hgb Hct MCV MCH MCHC RDW Std Deviation RDW Coeff of Arias Plt Count MPV Immature Gran % (Auto) Neut % (Auto) Lymph % (Auto) Bent % (Auto) Eos % (Auto) Baso % (Auto) Absolute Neuts (auto) Absolute Lymphs (auto) Nucleated RBC % Differential Comment ESR 19 Sodium Potassium Chloride Carbon Dioxide Anion Gap BUN Creatinine Est GFR (MDRD) Af Amer Est GFR (MDRD) Non-Af BUN/Creatinine Ratio Glucose Calcium Ferritin 91 Total Bilirubin Direct Bilirubin AST ALT Alkaline Phosphatase Ammonia < 10.0 L Lactate Dehydrogenase 370 H C-React Prot Ext Range 98.30 H Total Protein Albumin Globulin Lipase TSH Urine Color Urine Clarity Urine pH Ur Specific [place] Urine Protein Urine Glucose (UA) Urine Ketones Urine Occult Blood Urine Nitrite Urine Bilirubin Urine Urobilinogen Ur Leukocyte Esterase Urine RBC Urine WBC Ur Squamous Epith Cells Urine Bacteria Urine Mucus Radiography Diagnostic Testing: Clinical Impression(s) from Imaging Studies Abdomen/Pelvis CT 01/07/23 15:22 IMPRESSION: Findings suggest liver cirrhosis with evidence of ascites. Moderate hiatal hernia. Small cyst in the right lobe of the liver. Sigmoid diverticulosis. Enlarged heterogeneous appearance of the uterus. Electronically Signed: Joel Hutton MD at 15:36 EDT , Rhythm Strip Rhythm Strip: Sinus Rhythm Rate: 71 Ectopy: None EKG Initial EKG: Attestation: I personally reviewed and interpreted this EKG as follows: Interpretation: Sinus Rhythm Comments: Sinus rhythm at a rate of 71 bpm with arrhythmia Minimal voltage criteria for LVH [place] interval [address] segments Compared to prior EKG patient now has sinus arrhythmia and resolution of T wave inversions in the 5 through V6 Differential Diagnosis Abdominal Pain: Pancreatitis Reason(s) Pancreatitis less likely: clinical exam does not support and NL lab values, Bowel obstruction Reason(s) bowel obstruction less likely: bowel sounds present on exam and no evidence of bowel obstruction on imaging studies and UTI Reason(s) UTI less likely: no evidence of infection on urinalysis Discharge Plan Dx/Rx/DC Orders Clinical Impression: Abnormal EKG, Gastroenteritis, Nausea & vomiting, Cirrhosis, Generalized weakness Disposition Disposition: Acute Care Hospital [facility] Discharge Date/Time: 01/07/23 20:25
--- NOTE | 2023-01-07 15:22 | CT_ITS ---
STUDY: CT ABDOMEN AND PELVIS WITH CONTRAST REASON FOR EXAM: Female, 82 years old. Abd pain, vomiting RADIATION DOSAGE (If Supplied By Facility): CTDIvol = ( 15.49 ) mGy, DLP = ( 1167.51 ) mGycm TECHNIQUE: Transaxial images were obtained from the dome of the diaphragm to the symphysis pubis without oral contrast. IV 100mL Isovue-300 was administered. Sagittal and coronal images were reconstructed. Individualized dose optimization techniques were used for this CT. COMPARISON: None. FINDINGS: Mild increased linear markings at the lung bases suggestive of mild basilar scarring. Carotid artery calcification. Ascites. There is a diffuse contour abnormality of the liver consistent with cirrhotic changes. 1 cm cyst in the anterior aspect of the right lobe of the liver. Normal gallbladder and extrahepatic biliary system. Normal spleen. There is diffuse atrophy of the pancreas. Normal bilateral adrenal glands. Normal right kidney. Normal left kidney. There is a moderate hiatal hernia. Normal small intestine. There are multiple colonic diverticula consistent with diverticulosis. The appendix is visualized and appears normal. There is diffuse atherosclerotic calcification of the abdominal aorta, without a demonstrated aneurysm. Normal inferior vena cava. There is a 4.1 cm x 3.3 cm soft tissue mass in the left para-aortic region adjacent to the left renal hilus. This most likely represents an enlarged lymph node. Normal urinary bladder. Heterogeneous appearance of the uterus suggestive of fibroid uterus. The uterus is enlarged. Normal abdominal wall. There are degenerative changes of the visualized lumbar spine. CT/Abdomen/Pelvis W IV Cont ONLY IMPRESSION: Findings suggest liver cirrhosis with evidence of ascites. Moderate hiatal hernia. Small cyst in the right lobe of the liver. Sigmoid diverticulosis. Enlarged heterogeneous appearance of the uterus. Electronically Signed: Joel Hutton MD at 15:36 EDT ,
[2023-01-07 16:01] LABS: Mucous, Urine 0 SEEN /hpf (<or=2+)
[2023-01-07 16:05] VITALS: BP 177/94; PULSE 88; RESP 16; O2SAT 96
[2023-01-07] MEDS: Ondansetron 4 MG/2 ML Vial IV ×2 (16:07→18:46)
[2023-01-07 16:10] LABS: Color, Urine Yellow (Yellow); Glucose, Dipstick Normal (Normal); Leukocyte Esterase-Dipstick 25 /ul (Negative); Nitrite-Dipstick Negative (Negative); Occult Blood-Urine 250 /ul (Negative); Protein-Dipstick 30 mg/dl (Negative); Urine Bilirubin Dipstick Negative (Negative); Urine Clarity Sl. Cloudy (Clear); Urine Urobilinogen Normal (Normal)
[2023-01-07 16:17] LABS: Ketone-Dipstick 150 mg/dl (Negative)
[2023-01-07 16:17] LABS: AST(SGOT) 37 U/L (15-37); Alanine Aminotransfer ALT/SGPT 14 U/L (13-56); Albumin, Serum 3.5 g/dL (3.2-5.0); Alkaline Phosphatase 82 U/L (45-117); Bilirubin, Direct 0.23 mg/dL (0.00-0.30); Globulin 4.4 g/dL (2.2-4.2); Protein, Total 7.9 g/dL (6.4-8.2)
[2023-01-07 16:26] LABS: Lipase 56 U/L (73-393)
[2023-01-07 16:38] LABS: Bacteria RARE /hpf (None Seen); Red Blood Cells-Urine 0-5 SEEN /hpf (0-5); Squamous Epithelial Cells - UA 0-5 SEEN /hpf (5-10); White Blood Cells 0-5 SEEN /hpf (0-5)
[2023-01-07 16:45] LABS: Ammonia < 10.0 umol/L (11-32)
--- NOTE | 2023-01-07 17:38 | EX.PCM.CON.G ---
HPI Consult Data Date of Consult: 01/07/23 HPI Narrative Reason for Consultation: cirrhosis HPI Narrative: PAPI SMITH, is a 82 F who presents nausea and vomiting. 82-year-old female with history of hypothyroid, myasthenia gravis, hypertension, MAGALIE on CPAP at home presenting for worsening nausea and vomiting.? Patient was vomiting every 20 minutes this morning.? She is not feeling well and continues to feel nauseous.? Some hard time taking her medications.? She has had abnormal bowel movements over the past few weeks and was having frequent small/hard bowel movements and then started having diarrhea.? Patient is complained of some mild generalized abdominal pain.? No report of any blood in her vomit or her stool.? She currently says she is not feeling good and is weak.? She is a resident of [place].? Denies any chest pain or difficulty breathing.? No other complaints at this time. I was called for consultation due to CT scan showing a cirrhotic liver. She has no past medical history of viral or nonviral hepatitis. She has no history of jaundice. She has no history of pre-existing liver disease. She has no family history of liver disease. She has no history of drug abuse. She has no tattoos. She has not received any blood transfusions in the past. She denies any jaundice, itching, darkened urine. She does complain of some abdominal distention and CT scan did note some ascites. She was started empirically on ceftriaxone due to our mental status and increased white blood cell count on CBC. [facility] Medical History (Updated 01/07/23 @ 17:[address] Gregory Friend, DO) Abnormal EKG Carotid artery disease Dizziness Essential hypertension Hyperlipidemia Hypersomnia Hypothyroidism Myasthenia gravis Ovarian cyst Rectal bleeding Home Medications hydrochlorothiazide 25 mg tablet 25 mg PO DAILY 11/24/18 [History Last Taken 09/27/20] levothyroxine 88 mcg tablet 88 mcg PO DAILY 11/24/18 [History Last Taken 09/27/20] mycophenolate mofetil 500 mg tablet (CellCept) 500 mg PO BID 04/25/19 [History Last Taken 09/27/20] pyridostigmine bromide 60 mg tablet 60 mg PO TID mystensia gravis 04/25/19 [History Last Taken 09/27/20] losartan 50 mg tablet (Cozaar) 50 mg PO DAILY 09/19/19 [History Last Taken 09/27/20] Allergy/AdvReac Type Severity Reaction Status Date / Time Penicillins AdvReac Intermediate GI upset Verified 01/07/23 14:43 Family History Father CVA (cerebral vascular accident) Mother Alzheimer's disease Surgical History History of appendectomy History of tonsillectomy Social History Smoking Status: Never smoker second hand exposure: No alcohol intake: never substance use type: does not use caffeine: Yes ROS Review of Systems ROS Unobtainable: other Constitutional Constitutional: Denies fatigue, fever(s), poor appetite, weight gain or weight loss ENT HEENT: Denies mouth lesions Cardiovascular Cardiovascular: Denies abdominal bloating, abdominal edema or abdominal pain Respiratory/Chest Respiratory/Chest: Denies change in mental status, change in phlegm color, chest congestion or chest tightness Gastrointestinal Gastrointestinal: Denies belching, bloating, change in bowel habits, change in stool character, chewing difficulty, coffee ground emesis, constipation, cramping, diarrhea, dyspepsia, dysphagia, early satiety, excessive flatus, fecal incontinence, heartburn, hematemesis, hematochezia, hemorrhoids, loose stools, melena, nausea, odynophagia, rectal bleeding, tenesmus, vomiting or weight changes Genitourinary Genitourinary: Denies abdominal discomfort, burning urination or itching Musculoskeletal Musculoskeletal: Reports as per HPI; Denies muscle weakness or myalgias Integumentary Integumentary: Denies jaundice Neurologic Neurologic: Denies lack of coordination or weakness Psychiatric Psychiatric: Denies confusion, depression, memory loss, mood swings, paranoia or suicidal ideation Endocrine Endocrinology: Denies systems reviewed and no addt'l complaints, except as documented Hematologic/Lymphatic Hematologic/Lymphatic: Denies anemia, easy bleeding, easy bruising or lymphadenopathy Allergic/Immunologic Allergic/Immunologic: Denies systems reviewed and no addt'l complaints, except as documented Physical Exam Const alert General Appearance: cooperative Orientation / Consciousness: oriented to person HEENT hearing grossly normal bilaterally Head and Scalp: normal to inspection Face and Sinus: face symmetric Nose: external nose normal Mouth: oral and palatal mucosa normal Eyes conjunctivae normal General Eye: normal appearance of both eyes Neck full ROM General: normal visual inspection Lymph Lymphatic: no lymphadenopathy noted Chest inspection of chest normal and palpation of chest normal Chest: symmetrical chest wall rise Resp normal respiratory effort Effort and Inspection: able to speak in complete sentences Cardio regular rate GI non-distended Percussion: normal to percussion Rectal Exam: deferred Neuro Speech: speech normal Gait (Neuro): normal gait Lab / Micro Data Result Diagrams: 01/07/23 14:15 01/07/23 14:15 Labs: Laboratory Results - last 24 hr 01/07/23 14:15: Sodium 141, Potassium 3.8, Chloride 105, Carbon Dioxide 26.0, Anion Gap 10, BUN 20 H, Creatinine 0.83, Est GFR (MDRD) Af Amer 85, Est GFR (MDRD) Non-Af 71, BUN/Creatinine Ratio 24.2 H, Glucose 140 H, Calcium 9.5 01/07/23 14:15: WBC 13.0 H, RBC 5.27, Hgb 14.5, Hct 43.9, MCV 83.3, MCH 27.5, MCHC 33.0, RDW Std Deviation 38.5, RDW Coeff of Arias 12.8, Plt Count 450, MPV 9.0, Immature Gran % (Auto) 0.500, Neut % (Auto) 94.3 H, Lymph % (Auto) 3.2 L, Bureau % (Auto) 1.6, Eos % (Auto) 0.2, Baso % (Auto) 0.2, Absolute Neuts (auto) 12.2 H, Absolute Lymphs (auto) 0.41 L, Nucleated RBC % 0, Differential Comment COMMENT 01/07/23 14:15: Total Bilirubin 0.60, Direct Bilirubin 0.23, AST 37, ALT 14, Alkaline Phosphatase 82, Total Protein 7.9, Albumin 3.5, Globulin 4.4 H 01/07/23 14:15: Lipase 56 L, TSH 2.00 01/07/23 15:35: Urine Color Yellow, Urine Clarity Sl. Cloudy, Urine pH 6.0, Ur Specific [place] 1.020, Urine Protein 30 H, Urine Glucose (UA) Normal, Urine Ketones 150 A*, Urine Occult Blood 250 H, Urine Nitrite Negative, Urine Bilirubin Negative, Urine Urobilinogen Normal, Ur Leukocyte Esterase 25 H, Urine RBC 0-5 SEEN, Urine WBC 0-5 SEEN, Ur Squamous Epith Cells 0-5 SEEN, Urine Bacteria RARE, Urine Mucus 0 SEEN 01/07/23 15:57: Ammonia < 10.0 L Rhythm Strip Rhythm Strip: Sinus Rhythm Rate: 71 Ectopy: None Radiology Impression Abdomen/Pelvis CT 01/07/23 15:22 IMPRESSION: Findings suggest liver cirrhosis with evidence of ascites. Moderate hiatal hernia. Small cyst in the right lobe of the liver. Sigmoid diverticulosis. Enlarged heterogeneous appearance of the uterus. Electronically Signed: Joel Hutton MD at 15:36 EDT , Assessment & Plan Assessment/Plan (1) Cirrhosis: PLAN: Patient likely has GONZALES associated cirrhosis. However she does have myasthenia gravis and there is association with primary biliary cirrhosis and primary sclerosing cholangitis along with autoimmune hepatitis. She also has a 1 cm cyst that was noted on her CT scan abdomen pelvis. I will get an MRI to look for signs of PSC and to see if there is any signs of malignancy in the cystic structure. I will also get a alpha-fetoprotein, ammonia, acute hepatitis profile, anti-smooth muscle antibody, antiliver muscle kidney antibody, ferritin, KELLY comprehensive, ANCA antibodies to look for any other signs of autoimmune disease that may be associated with her new diagnosis of cirrhosis. (2) Nausea & vomiting: PLAN: I will check an ammonia level as nausea vomiting can be associated with hyperammonia anemia. Recommend lactulose 20 cc p.o. twice daily, Xifaxan 550 mg p.o. twice daily. Await MRI. I would also get a gastric emptying study as cirrhosis can be associated with gastroparesis cirrhosis. I would also consider checking mycophenolate Mofatil till levels. I will give Zofran for nausea vomiting greater than Reglan due to the extraparametal effects and with a diagnosis of cirrhosis as side effects can be confused with encephalopathy. At this time she is a child Fleming class a with a meld of 10. She seems to be stable from a liver standpoint except for some decompensated liver disease . Recommend 40 millLasix grams in a.m. +50 mg of Aldactone in a.m. Charges/Coding Visit Charges Inpatient E&M: 36632 Init Hosp L3
[2023-01-07 18:35] LABS: Erythrocyte Sedimentation Rate 19 mm/hr (0-30)
[2023-01-07 18:41] LABS: Ferritin 91 ng/mL (8-252); LDH 370 U/L (84-246)
[2023-01-07] MEDS: 0.9% Normal Saline 1,000 ML 150 ML IV (18:46)
[2023-01-07] MEDS: Ceftriaxone 1 GM/50 ML BAG IV (18:46)
[2023-01-07 19:02] VITALS: BP 179/90; PULSE 79; RESP 16; TEMP 37.2; O2SAT 96
[2023-01-07 19:10] VITALS: BP 179/90; PULSE 80; RESP 12; O2SAT 92
[2023-01-07 19:41] LABS: Ammonia < 10.0 umol/L (11-32)
--- NOTE | 2023-01-07 20:00 | HP.PCM.HOS_ITS ---
HPI - General General Date of Admission: 01/07/23 HPI Narrative PAPI SMITH, is a 82 F who presents to the hospital with concerns of dehydration secondary to what appears to be gastroenteritis. Her was recently discharged from the ER with rotavirus. She has not been eating or drinking very well and she has been having fairly frequent episodes of emesis and some episodes of diarrhea. Renal function is is stable but CT scan of her abdomen and pelvis demonstrated cirrhosis with ascites. This was an unexpected finding as she is not a drinker. She does have a history of myasthenia gravis and takes pyridostigmine and mycophenolate mofetil for the last 4 years. She had had significant improvement in her symptoms with the pyridostigmine though family has not noticed much added benefit to the mycophenolate. Gastroenterology was consulted in the ER and is planning autoimmune work-up given her history of myasthenia gravis as well as an MRCP. She denies any significant abdominal pain or fevers or chills but she does have a leukocytosis of 13. [facility] Medical History (Updated 01/07/23 @ 20:[address] Byron Little MD) Abnormal EKG Carotid artery disease Dizziness Essential hypertension Hyperlipidemia Hypersomnia Hypothyroidism Myasthenia gravis Ovarian cyst Rectal bleeding Home Medications hydrochlorothiazide 25 mg tablet 25 mg PO DAILY bp 11/24/18 [History Last Taken 01/06/23] levothyroxine 88 mcg tablet 88 mcg PO DAILY thyroid 11/24/18 [History Last Taken 01/07/23] mycophenolate mofetil 500 mg tablet (CellCept) 500 mg PO BID MG 04/25/19 [Histo ry Last Taken 01/06/23] pyridostigmine bromide 60 mg tablet 60 mg PO TID mystensia gravis 04/25/19 [ History Last Taken 01/06/23] losartan 50 mg tablet (Cozaar) 50 mg PO DAILY heart 09/19/19 [History Last Taken 01/06/23] Allergy/AdvReac Type Severity Reaction Status Date / Time Penicillins AdvReac Intermediate GI upset Verified 01/07/23 14:43 Family History Father CVA (cerebral vascular accident) Mother Alzheimer's disease Surgical History History of appendectomy History of tonsillectomy Social History Smoking Status: Never smoker second hand exposure: No alcohol intake: never substance use type: does not use caffeine: Yes ROS Constitutional Constitutional: Reports weakness; Denies chills, fatigue, fever(s) or malaise Eyes Eyes: Denies blurry vision ENT HEENT: Denies headache(s) or nasal discharge Cardiovascular Cardiovascular: Denies chest pain, dyspnea on exertion or syncope Respiratory/Chest Respiratory/Chest: Denies cough, shortness of breath at rest or shortness of b reath with exertion Gastrointestinal Gastrointestinal: Reports diarrhea, nausea and vomiting; Denies constipation Genitourinary Genitourinary: Denies dysuria Neurologic Neurologic: Denies focal weakness, numbness or tremor(s) Psychiatric Psychiatric: Denies anxiety or depression Vital Signs Vital Signs Vital Signs: 01/07/23 13:13 01/07/23 14:42 01/07/23 14:43 Temperature 97 F L Temperature Source Temporal Pulse Rate 73 68 Respiratory Rate 14 21 H Respiratory Effort Normal Non-Labored Respiratory Pattern Normal Blood Pressure 173/85 H 158/91 H Blood Pressure Mean 114 113 Pulse Ox 98 97 Oxygen Delivery Method Room Air Room Air 01/07/23 16:05 01/07/23 19:02 01/07/23 19:10 Temperature 98.9 F Temperature Source Temporal Pulse Rate 88 79 80 Respiratory Rate 16 16 12 Respiratory Effort Respiratory Pattern Blood Pressure 177/94 H 179/90 H 179/90 H Blood Pressure Mean 121 119 119 Pulse Ox 96 96 92 Oxygen Delivery Method Room Air Room Air Room Air Weight Weight: 194 lb 10.691 oz Body Mass Index (BMI) 38.0 Physical Exam Narrative General: Alert, Oriented x3, Cooperative, No apparent distress HEENT: Atraumatic, PERRLA, EOMI, Normocephalic Oral: Moist Mucosa Neck: Supple, No JVD Lungs: Clear to auscultation, Normal air movement, No rhonchi, No wheeze, No rales Cardiovascular: Regular rate, Regular Rhythm, Normal S1, Normal S2, No murmurs Abdomen: Soft, Non Tender, mild distention, No Hepato-splenomegaly Extremities: No edema, Capillary Refill Less than 3 Seconds Skin: No rashes, No breakdown Musculoskeletal: No Tenderness to Palpation of Joints or Extremities Neurological: Cranial nerves II-XII grossly intact, Motor Exam 5/5 strength throughout, Sensory exam intact to light touch and pain Psych/Mental Status: Normal Affect, Appropriate Results Lab / Micro Data Result Diagrams: 01/07/23 14:15 01/07/23 14:15 Labs: Laboratory Results - last 24 hr 01/07/23 14:15: Sodium 141, Potassium 3.8, Chloride 105, Carbon Dioxide 26.0, Anion Gap 10, BUN 20 H, Creatinine 0.83, Est GFR (MDRD) Af Amer 85, Est GFR (MDRD) Non-Af 71, BUN/Creatinine Ratio 24.2 H, Glucose 140 H, Calcium 9.5 01/07/23 14:15: WBC 13.0 H, RBC 5.27, Hgb 14.5, Hct 43.9, MCV 83.3, MCH 27.5, MCHC 33.0, RDW Std Deviation 38.5, RDW Coeff of Arias 12.8, Plt Count 450, MPV 9.0, Immature Gran % (Auto) 0.500, Neut % (Auto) 94.3 H, Lymph % (Auto) 3.2 L, Grundy % (Auto) 1.6, Eos % (Auto) 0.2, Baso % (Auto) 0.2, Absolute Neuts (auto) 12.2 H, Absolute Lymphs (auto) 0.41 L, Nucleated RBC % 0, Differential Comment COMMENT 01/07/23 14:15: Total Bilirubin 0.60, Direct Bilirubin 0.23, AST 37, ALT 14, Alkaline Phosphatase 82, Total Protein 7.9, Albumin 3.5, Globulin 4.4 H 01/07/23 14:15: Lipase 56 L, TSH 2.00 01/07/23 15:35: Urine Color Yellow, Urine Clarity Sl. Cloudy, Urine pH 6.0, Ur Specific Miles 1.020, Urine Protein 30 H, Urine Glucose (UA) Normal, Urine Ketones 150 A*, Urine Occult Blood 250 H, Urine Nitrite Negative, Urine Bilirubin Negative, Urine Urobilinogen Normal, Ur Leukocyte Esterase 25 H, Urine RBC 0-5 SEEN, Urine WBC 0-5 SEEN, Ur Squamous Epith Cells 0-5 SEEN, Urine Bacteria RARE, Urine Mucus 0 SEEN 01/07/23 15:57: Ammonia < 10.0 L 01/07/23 18:07: ESR 19 01/07/23 18:07: Ferritin 91, Lactate Dehydrogenase 370 H, C-React Prot Ext Range 98.30 H 01/07/23 18:50: Ammonia < 10.0 L Rhythm Strip Rhythm Strip: Sinus Rhythm Rate: 71 Ectopy: None Radiology Impression Abdomen/Pelvis CT 01/07/23 15:22 IMPRESSION: Findings suggest liver cirrhosis with evidence of ascites. Moderate hiatal hernia. Small cyst in the right lobe of the liver. Sigmoid diverticulosis. Enlarged heterogeneous appearance of the uterus. Electronically Signed: Joel Hutton MD at 15:36 EDT , Assessment & Plan Assessment/Plan (1) Cirrhosis: (2) Gastroenteritis: PLAN: Plan 1. Gastroenteritis with cirrhosis and ascites ? Gastroenterology was consulted in the ER and multiple autoimmune lab work has been obtained ? Hepatitis panel is pending, ammonia was normal ? We will continue with Rocephin ? We will obtain a enteric pathogen panel ? We will continue with lactulose and Xifaxan per the recommendation of gastroenterology ? We will add Lasix and Aldactone we will have to monitor her creatinine closely, can resume her losartan but will hold her hydrochlorothiazide ? Plan for an MRCP in the morning ? Continue with antinausea medications ? Blood cultures are pending ? Her was diagnosed a day or 2 ago with rotavirus 2. Myasthenia gravis ? This is controlled on her pyridostigmine and mycophenolate ? May be worthwhile to obtain a mycophenolate level though I do not think you will adjust current treatment as this is a send out test still be several days before we get the result back and she will likely be discharged before then 3. Hypothyroidism ? Stable ? Continue with Synthroid DVT: SCDs 78 minutes was spent in direct patient contact as well as chart review and collaboration with colleagues Charges/Coding Visit Charges Inpatient E&M: 22412 Init Hosp L3
--- NOTE | 2023-01-07 20:44 | ED.RN ---
THIS RN TOOK THE PT TO THE FLOOR. PT IV PATENT, SKIN AROUND SITE P/W/D.
[2023-01-07 20:53] VITALS: BMI 35.1
[2023-01-07 21:38] VITALS: BP 163/88; PULSE 97; RESP 18; TEMP 37.2; O2SAT 94
[2023-01-07] MEDS: Mycophenolate Mofetil 250 MG Capsule 500 MG PO (22:02)
[2023-01-07] MEDS: rifAXIMin 550 MG Tablet PO (22:02)
[2023-01-07] MEDS: Lactulose 20 GM/30 ML UDC PO (22:03)
[2023-01-07] MEDS: 0.9% Saline Lock 10 ML Syringe IV (22:15)
[2023-01-07] MEDS: Pyridostigmine Bromide 60 MG Tablet PO (22:58)
[2023-01-08] MEDS: Ondansetron 4 MG/2 ML Vial IV ×2 (05:26→15:08)
[2023-01-08] MEDS: 0.9% Saline Lock 10 ML Syringe IV ×4 (05:28→23:24)
[2023-01-08] MEDS: Pyridostigmine Bromide 60 MG Tablet PO ×3 (05:29→21:24)
[2023-01-08] MEDS: Levothyroxine 88 MCG Tablet PO (05:29)
[2023-01-08 05:37] VITALS: BP 157/95; PULSE 99; RESP 18; TEMP 36.8; O2SAT 95
[2023-01-08 06:37] LABS: Absolute Lymphocyte Count 0.74 X10^3/uL (0.83-4.51); Absolute Neutrophil Count 12.4 X10^3/uL (2.0-7.7); Basophil# 0.04 X10^3/uL; Basophil% 0.3 % (0-1); Eosinophil# 0.01 X10^3/uL; Eosinophils% 0.1 % (0-5); Hematocrit 42.4 % (37-47); Hemoglobin 13.6 g/dL (12.0-15.0); Lymphocyte # 0.74 X10^3/ul (0.83-4.51); Lymphocyte % 5.2 % (19-41); Mean Corp Hgb Conc 32.1 g/dL (32-36); Mean Corpuscular Hgb 27.2 pg (27.0-32.0); Mean Corpuscular Volume 84.8 fL (81-99); Mean Platelet Vol. 9.3 fl (6.2-12.0); Monocyte# 0.87 X10^3/uL; Monocyte% 6.1 % (0-10); NRBC Flagged by Analyzer 0 % (0-5); Neutrophil % 87.6 % (47-70); Platelet Count 426 K/mm3 (150-450); RBC Distribution Width CV 12.8 % (11.6-14.6); RBC Distribution Width SD 39.3 fl (35.1-43.9); White Blood Count 14.2 K/mm3 (4.4-11.0)
[2023-01-08 07:07] LABS: ALB/GLOB Ratio 0.8 RATIO (0.9-2.4); AST(SGOT) 38 U/L (15-37); Alanine Aminotransfer ALT/SGPT 14 U/L (13-56); Alkaline Phosphatase 74 U/L (45-117); Anion Gap 7 (5-15); BUN 13 mg/dL (7-18); BUN/Creat Ratio 16.5 RATIO (10-20); Calcium,Total 8.5 mg/dL (8.5-10.1); Chloride 105 mmol/L (98-107); Creatinine, Serum 0.79 mg/dL (0.55-1.02); EST Glomerular Filtration Rate 75 mL/min (>60); Est Glom Filt Rate - Afr Amer 90 mL/min (>60); Estimated Creatinine Clearance 33.86 ml/min; Globulin 3.9 g/dL (2.2-4.2); Glucose 119 mg/dL (74-106); Potassium 3.6 mmol/L (3.5-5.1); Protein, Total 6.9 g/dL (6.4-8.2); Sodium Level 137 mmol/L (136-145)
[2023-01-08 09:15] VITALS: BP 155/80; PULSE 71; RESP 16; TEMP 36.6; O2SAT 98
--- NOTE | 2023-01-08 09:40 | CASEMGMT ---
RAY REAL DC Planning Assessment: Face to Face with patient for initial transition planning/care coordination assessment.?RAY REAL introduced self and role at [facility], pt voices understanding and is agreeable to participating in assessment. Care providers, pharmacy,?and demographics verified. ? Admitting dx: cirrhosis w/ascites PCP: Lance Specialists: Landry (neurology) Preferred Pharmacy: [facility] Insurance: MCR A/B, [employer] supplement Prescription Benefit:?yes Living Will/HPOA: no LW, HPOAa daughter Armida LNOK: spouse Ryan Carnes, daughter Armida Living Arrangements: Pt lives in an independent living apartment at [facility]. Apt is on the second floor and there is elevator access and no issues with stairs. Pt states she needs a little assistance with ADLs for self care and her assists her. They receive one meal a day with their rent and pt and spouse prepare the other meals independently. Transportation: spouse drives DME: cane, walker, built in bench in shower, hand held shower, grab bars, lift chair SNF: none HHC: none ? Plan: Pt plans to return home with spousal support. Denies any needs or concerns at this time. Will continue to monitor and assist with DC needs as identified. Akira Mcconnell RN CM
--- NOTE | 2023-01-08 10:00 | MRI_ITS ---
INDICATION: liver lesion EXAMINATION: MRI - MR MRCP W/O Contrast TECHNIQUE: Multiplanar and multisequence MR images of the abdomen were obtained with MRCP sequence. Three-dimensional post-processing reconstructions were performed. IV Contrast Dosage and Agent: None. COMPARISON: None. FINDINGS: LIVER: There is moderate perihepatic ascites. Within the left lobe of the liver there is a simple cyst visualized measuring 1 cm in diameter. The margins of the liver are nodular in contour suggestive of cirrhosis. GALLBLADDER AND BILIARY TREE: No gallstones. No gallbladder distension or wall edema. The CBD measures . No intra- or extrahepatic biliary dilation. No choledochal filling defect. PANCREAS: No mass. No pancreatic duct dilation. SPLEEN: Moderate perisplenic ascites. ADRENAL GLANDS: No nodules. KIDNEYS: Normal renal size and position. No hydronephrosis. No mass. LYMPH NODES: There is a left para-aortic srikanth mass 2.91 x 4.3 cm consistent with neoplastic disease. PERITONEUM: There is moderate ascites seen throughout the upper abdomen. There is extensive omental caking consistent with neoplastic disease. This is seen throughout the entire abdomen. VESSELS: Aorta is non-dilated. LOWER CHEST: Small left and minimal right pleural effusion. Moderate sized hiatal hernia. Stable findings. 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 Cirrhotic liver. Moderate ascites. Moderate sized hiatal hernia. Electronically Signed: Kole Nova MD, SANTOS at 10:57 EDT ,
[2023-01-08] MEDS: rifAXIMin 550 MG Tablet PO ×2 (11:09→21:24)
[2023-01-08] MEDS: Lactulose 20 GM/30 ML UDC PO ×2 (11:10→21:23)
[2023-01-08] MEDS: Mycophenolate Mofetil 250 MG Capsule 500 MG PO ×2 (11:10→21:24)
[2023-01-08] MEDS: Furosemide 40 MG Tablet PO (11:10)
[2023-01-08] MEDS: Losartan Potassium 50 MG Tablet PO (11:10)
[2023-01-08] MEDS: Spironolactone 50 MG Tablet PO (11:10)
[2023-01-08] MEDS: proCHLORPERazine 10 MG/2 ML Vial 5 MG IV ×2 (12:15→17:16)
--- NOTE | 2023-01-08 13:48 | PN_ITS ---
Subjective Subjective Patient seen and examined. She was admitted with a complaint of diarrhea. She had recently been exposed to someone with norovirus infection. She is still complaining of diarrhea. She had an episode of diarrhea this morning. She denies nausea and vomiting. Review of systems is otherwise negative. Objective Data Objective Data Vital Signs: Vital Signs Temp Pulse Resp BP Pulse Ox O2 Del Method 97.8 F 71 16 155/80 H 98 Room Air 01/08/23 09:15 01/08/23 09:15 01/08/23 09:15 01/08/23 09:15 01/08/23 09:15 01/08/23 09:15 Oxygen Delivery Method Room Air Weight: 185 lb 13.595 oz Body Mass Index (BMI) 35.1 Intake & Output: Intake and Output for Last 24 Hours 01/06/23 01/07/23 01/08/23 23:59 23:59 23:59 Intake Total 335 / 335 120 / 120 Output Total 175 / 175 Balance 335 / 335 -55 / -55 Lab / Micro Data Result Diagrams: 01/08/23 06:29 01/08/23 06:29 Labs: Laboratory Results - last 24 hr 01/07/23 14:15: Sodium 141, Potassium 3.8, Chloride 105, Carbon Dioxide 26.0, Anion Gap 10, BUN 20 H, Creatinine 0.83, Est GFR (MDRD) Af Amer 85, Est GFR (MDRD) Non-Af 71, BUN/Creatinine Ratio 24.2 H, Glucose 140 H, Calcium 9.5 01/07/23 14:15: WBC 13.0 H, RBC 5.27, Hgb 14.5, Hct 43.9, MCV 83.3, MCH 27.5, MCHC 33.0, RDW Std Deviation 38.5, RDW Coeff of Arias 12.8, Plt Count 450, MPV 9.0, Immature Gran % (Auto) 0.500, Neut % (Auto) 94.3 H, Lymph % (Auto) 3.2 L, Merrick % (Auto) 1.6, Eos % (Auto) 0.2, Baso % (Auto) 0.2, Absolute Neuts (auto) 12.2 H, Absolute Lymphs (auto) 0.41 L, Nucleated RBC % 0, Differential Comment COMMENT 01/07/23 14:15: Total Bilirubin 0.60, Direct Bilirubin 0.23, AST 37, ALT 14, Alkaline Phosphatase 82, Total Protein 7.9, Albumin 3.5, Globulin 4.4 H 01/07/23 14:15: Lipase 56 L, TSH 2.00 01/07/23 15:35: Urine Color Yellow, Urine Clarity Sl. Cloudy, Urine pH 6.0, Ur Specific Shickley 1.020, Urine Protein 30 H, Urine Glucose (UA) Normal, Urine K etones 150 A*, Urine Occult Blood 250 H, Urine Nitrite Negative, Urine Bilirubin Negative, Urine Urobilinogen Normal, Ur Leukocyte Esterase 25 H, Urine RBC 0-5 SEEN, Urine WBC 0-5 SEEN, Ur Squamous Epith Cells 0-5 SEEN, Urine Bacteria RARE, Urine Mucus 0 SEEN 01/07/23 15:57: Ammonia < 10.0 L 01/07/23 18:07: ESR 19 01/07/23 18:07: Ferritin 91, Lactate Dehydrogenase 370 H, C-React Prot Ext Range 98.30 H 01/07/23 18:50: Ammonia < 10.0 L 01/08/23 06:29: WBC 14.2 H, RBC 5.00, Hgb 13.6, Hct 42.4, MCV 84.8, MCH 27.2, MCHC 32.1, RDW Std Deviation 39.3, RDW Coeff of Arias 12.8, Plt Count 426, MPV 9.3, Immature Gran % (Auto) 0.700, Neut % (Auto) 87.6 H, Lymph % (Auto) 5.2 L, Merrick % (Auto) 6.1, Eos % (Auto) 0.1, Baso % (Auto) 0.3, Absolute Neuts (auto) 12.4 H, Absolute Lymphs (auto) 0.74 L, Nucleated RBC % 0 01/08/23 06:29: Sodium 137, Potassium 3.6, Chloride 105, Carbon Dioxide 25.0, Anion Gap 7, BUN 13, Creatinine 0.79, Estim Creat Clear Calc 33.86, Est GFR (MDRD) Af Amer 90, Est GFR (MDRD) Non-Af 75, BUN/Creatinine Ratio 16.5, Glucose 119 H, Calcium 8.5, Total Bilirubin 0.50, AST 38 H, ALT 14, Alkaline Phosphatase 74, Total Protein 6.9, Albumin 3.0 L, Globulin 3.9, Albumin/Globulin Ratio 0.8 L Micro: Microbiology 01/08/23 08:47 Stool Enteric Bacteriology - Final Radiography Diagnostic Testing: Radiology Impression Abdomen/Pelvis CT 01/07/23 15:22 IMPRESSION: Findings suggest liver cirrhosis with evidence of ascites. Moderate hiatal hernia. Small cyst in the right lobe of the liver. Sigmoid diverticulosis. Enlarged heterogeneous appearance of the uterus. 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 Cirrhotic liver. Moderate ascites. Moderate sized hiatal hernia. Electronically Signed: Kole Nova MD, SANTOS at 10:57 EDT , ADDENDUM: 01/08/23 1113 IMPRESSION: undefined ADDENDUM: 01/08/23 1240 IMPRESSION: undefined Rhythm Strip Rhythm Strip: Sinus Rhythm Rate: 71 Ectopy: None Physical Exam Const alert, oriented x3 and no apparent distress General Appearance: cooperative HEENT normocephalic, head/scalp atraumatic, moist oral mucous membranes and oropharynx normal Eyes PERRL and EOMs intact bilaterally Neck no lymphadenopathy, supple and no JVD Lymph Lymphatic: no lymphadenopathy noted and no lymphedema noted Resp normal respiratory effort, normal air movement and clear to auscultation bilaterally Cardio regular rate, regular rhythm, S1 normal heart sound, S2 normal heart sound and no murmurs GI normal to inspection, nondistended, normoactive bowel sounds, soft to palpation, non-tender and non-distended Extremity normal capillary refill, no clubbing, cyanosis or edema and no calf tenderness Skin General Skin Exam: no breakdown Neuro CN's II-XII intact bilaterally, no focal motor deficits, no sensory deficits noted and deep tendon reflexes 2+ bilaterally Psych thought process normal Assessment & Plan Assessment/Plan (1) Gastroenteritis: (2) Norovirus: PLAN: Plan #Acute viral gastroenteritis * stool for enteric pathogen is negative. * still having diarrhea. * enteric pathogen showing norovirus * continue gentle hydration with IVF * IV zofran prn * #Cirrhosis * CT of the abdomen done on account of diarrhea and abdominal pain showed cirrhosis with ascites. * She is not known to have cirrhosis with ascites. * Started on Lasix and Aldactone. Hydrochlorothiazide held. * Gastroenterology consulted. MRCP ordered. * Per gastroenterology there is association between primary biliary cirrhosis and primary sclerosing cholangitis with autoimmune hepatitis. MRCP therefore ordered to look for signs of primary sclerosing cholangitis * Alpha-fetoprotein and acute hepatitis panel as well as anti-smooth muscle antibody, antiliver muscle kidney antibody and ferritin as well as KELLY and ANCA antibodies ordered and also alpha-fetoprotein levels. * MRCP shows #History of myasthenia gravis: On pyridostigmine and mycophenolate. #Hypothyroidism:on synthroid DVT prophylaxis; SCDs Code status: DNRCCA no intubation Charges/Coding Visit Charges Inpatient E&M: 77938 Subs Hosp L2
[2023-01-08 15:00] VITALS: BP 171/86; PULSE 68; RESP 16; TEMP 36.5; O2SAT 98
[2023-01-08 16:00] VITALS: BP 156/81
--- NOTE | 2023-01-08 18:51 | PN_ITS ---
Subjective Subjective Patient is still nauseous and not able to eat much. Objective Data Objective Data Vital Signs: Vital Signs Temp Pulse Resp BP Pulse Ox O2 Del Method 97.7 F L 68 16 156/81 H 98 Room Air 01/08/23 15:00 01/08/23 15:00 01/08/23 15:00 01/08/23 16:00 01/08/23 15:00 01/08/23 15:00 Oxygen Delivery Method Room Air Weight: 185 lb 13.595 oz Body Mass Index (BMI) 35.1 Intake & Output: Intake and Output for Last 24 Hours 01/06/23 01/07/23 01/08/23 23:59 23:59 23:59 Intake Total 335 / 335 120 / 120 Output Total 175 / 175 Balance 335 / 335 -55 / -55 Lab / Micro Data Result Diagrams: 01/08/23 06:29 01/08/23 06:29 Labs: Laboratory Results - last 24 hr 01/07/23 18:50: Ammonia < 10.0 L 01/08/23 06:29: WBC 14.2 H, RBC 5.00, Hgb 13.6, Hct 42.4, MCV 84.8, MCH 27.2, MCHC 32.1, RDW Std Deviation 39.3, RDW Coeff of Arias 12.8, Plt Count 426, MPV 9.3, Immature Gran % (Auto) 0.700, Neut % (Auto) 87.6 H, Lymph % (Auto) 5.2 L, Jenkins % (Auto) 6.1, Eos % (Auto) 0.1, Baso % (Auto) 0.3, Absolute Neuts (auto) 12 .4 H, Absolute Lymphs (auto) 0.74 L, Nucleated RBC % 0 01/08/23 06:29: Sodium 137, Potassium 3.6, Chloride 105, Carbon Dioxide 25.0, Anion Gap 7, BUN 13, Creatinine 0.79, Estim Creat Clear Calc 33.86, Est GFR (MDRD) Af Amer 90, Est GFR (MDRD) Non-Af 75, BUN/Creatinine Ratio 16.5, Glucose 119 H, Calcium 8.5, Total Bilirubin 0.50, AST 38 H, ALT 14, Alkaline Phosphatase 74, Total Protein 6.9, Albumin 3.0 L, Globulin 3.9, Albumin/Globulin Ratio 0.8 L Micro: Microbiology 01/08/23 08:47 Stool Enteric Bacteriology - Final Radiography Diagnostic Testing: Radiology Impression MRCP 01/08/23 10:00 IMPRESSION: 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 Cirrhotic liver. Moderate ascites. Moderate sized hiatal hernia. Electronically Signed: Kole Nova MD, SANTOS at 10:57 EDT , ADDENDUM: 01/08/23 1113 IMPRESSION: undefined ADDENDUM: 01/08/23 1240 IMPRESSION: undefined Rhythm Strip Rhythm Strip: Sinus Rhythm Rate: 71 Ectopy: None Physical Exam Const alert, oriented x3 and no apparent distress General Appearance: cooperative HEENT normocephalic, head/scalp atraumatic, moist oral mucous membranes and oropharynx normal Eyes PERRL and EOMs intact bilaterally Neck no lymphadenopathy, supple and no JVD Lymph Lymphatic: no lymphadenopathy noted and no lymphedema noted Resp normal respiratory effort, normal air movement and clear to auscultation bilaterally Cardio regular rate, regular rhythm, S1 normal heart sound, S2 normal heart sound and no murmurs GI normal to inspection, nondistended, normoactive bowel sounds, soft to palpation, non-tender and non-distended Extremity normal capillary refill, no clubbing, cyanosis or edema and no calf tenderness Skin General Skin Exam: no breakdown Neuro CN's II-XII intact bilaterally, no focal motor deficits, no sensory deficits noted and deep tendon reflexes 2+ bilaterally Psych thought process normal Assessment & Plan Assessment/Plan (1) Mass of peritoneum: PLAN: There is a mass in the peritoneum along with omental caking likely secondary to peritoneal carcinomatosis. The differential diagnosis does include primary ovarian, sarcoma, hepatocellular with metastasis, lymphoma. I do not do a paracentesis to calculate her SAG because she will need a peritoneal biopsy with paracentesis and cytology of the fluid. I had a long conversation with the family. I already beth a CA 19-9, CA125, CEA, LDH and protein electrophoresis. I suspect that she is nauseous and not able to eat secondary to peritoneal carcinomatosis. I will give her scheduled Reglan. (2) Cirrhosis: PLAN: Cirrhosis likely secondary to Pierre versus autoimmune liver disease. Work- up is in progress. There is no other sign of decompensated liver disease at this time except for ascites. There is no signs of jaundice, encephalopathy or GI bleeding. Charges/Coding Visit Charges Inpatient E&M: 53578 Subs Hosp L3
[2023-01-08 21:00] VITALS: BP 152/78; PULSE 75; RESP 18; TEMP 36.8; O2SAT 96
[2023-01-08] MEDS: Ensure Plus High Protein 120 ML LIQUID PO (21:23)
[2023-01-08] MEDS: Ceftriaxone 1 GM/50 ML BAG IV (21:23)
[2023-01-08] MEDS: Metoclopramide 10 MG/2 ML Vial 5 MG IV (23:24)
[2023-01-09 02:20] VITALS: BP 163/78; PULSE 77; RESP 18; TEMP 36.8; O2SAT 93
[2023-01-09] MEDS: Ondansetron 4 MG/2 ML Vial IV (02:22)
[2023-01-09] MEDS: 0.9% Saline Lock 10 ML Syringe IV ×5 (02:22→21:40)
[2023-01-09] MEDS: Metoclopramide 10 MG/2 ML Vial 5 MG IV ×3 (05:30→17:06)
[2023-01-09] MEDS: Pyridostigmine Bromide 60 MG Tablet PO ×3 (05:30→21:44)
[2023-01-09] MEDS: Levothyroxine 88 MCG Tablet PO (05:30)
[2023-01-09 06:55] LABS: Absolute Neutrophil Count 11.8 X10^3/uL (2.0-7.7); Basophil# 0.03 X10^3/uL; Basophil% 0.2 % (0-1); Eosinophil# 0.01 X10^3/uL; Eosinophils% 0.1 % (0-5); Hematocrit 39.5 % (37-47); Hemoglobin 13.2 g/dL (12.0-15.0); Lymphocyte % 5.9 % (19-41); Mean Corp Hgb Conc 33.4 g/dL (32-36); Mean Corpuscular Hgb 27.7 pg (27.0-32.0); Mean Corpuscular Volume 82.8 fL (81-99); Mean Platelet Vol. 9.5 fl (6.2-12.0); Monocyte# 0.85 X10^3/uL; Monocyte% 6.3 % (0-10); NRBC Flagged by Analyzer 0 % (0-5); Neutrophil # 11.79 X10^3/uL (2.7-7.7); Neutrophil % 86.9 % (47-70); Platelet Count 414 K/mm3 (150-450); RBC Distribution Width CV 12.9 % (11.6-14.6); RBC Distribution Width SD 39.1 fl (35.1-43.9); Red Blood Count 4.77 M/mm3 (4.2-5.4); White Blood Count 13.6 K/mm3 (4.4-11.0)
[2023-01-09 07:22] LABS: ALB/GLOB Ratio 0.8 RATIO (0.9-2.4); AST(SGOT) 47 U/L (15-37); Alanine Aminotransfer ALT/SGPT 14 U/L (13-56); Albumin, Serum 3.1 g/dL (3.2-5.0); Alkaline Phosphatase 72 U/L (45-117); Anion Gap 7 (5-15); BUN 17 mg/dL (7-18); BUN/Creat Ratio 21.2 RATIO (10-20); Calcium,Total 8.8 mg/dL (8.5-10.1); Chloride 107 mmol/L (98-107); EST Glomerular Filtration Rate 73 mL/min (>60); Est Glom Filt Rate - Afr Amer 88 mL/min (>60); Estimated Creatinine Clearance 42.32 ml/min; Globulin 3.7 g/dL (2.2-4.2); Glucose 124 mg/dL (74-106); Potassium 2.8 mmol/L (3.5-5.1); Protein, Total 6.8 g/dL (6.4-8.2); Sodium Level 140 mmol/L (136-145)
--- NOTE | 2023-01-09 07:43 | PCM.PN.HOSP ---
Reason for Visit Reason for Visit: Diagnoses Acute gastroenteropathy due to [place] agent (01/08/23) Noninfective gastroenteritis and colitis, unspecified (01/08/23) Other specified disorders of peritoneum (01/08/23) Unspecified cirrhosis of liver (01/08/23) Subjective Subjective Reports still having nausea though no emesis, Reglan has been helpful. Has still been having diarrhea several times a day some abdominal pressure, poor p.o. not necessarily just due to nausea but due to poor appetite as well. Feels generally tired and unwell. Objective Data Objective Data Vital Signs: Vital Signs Temp Pulse Resp BP Pulse Ox O2 Del Method 98.2 F 77 18 163/78 H 93 Room Air 01/09/23 02:20 01/09/23 02:20 01/09/23 02:20 01/09/23 02:20 01/09/23 02:20 01/09/23 02:20 Oxygen Delivery Method Room Air Weight: 84.3 kg Body Mass Index (BMI) 35.1 Intake & Output: Intake and Output for Last 24 Hours 01/07/23 01/08/23 01/09/23 23:59 23:59 23:59 Intake Total 335 / 335 170 / 170 Output Total 175 / 175 Balance 335 / 335 -5 / -5 Lab / Micro Data Result Diagrams: 01/09/23 06:35 01/09/23 06:35 Labs: Laboratory Results - last 24 hr 01/09/23 05:50: WBC Cancelled, Corrected WBC Cancelled, RBC Cancelled, Hgb Cancelled, Hct Cancelled, MCV Cancelled, MCH Cancelled, MCHC Cancelled, RDW Std Deviation Cancelled, RDW Coeff of Arias Cancelled, Plt Count Cancelled, MPV Cancelled, Immature Gran % (Auto) Cancelled, Neut % (Auto) Cancelled, Lymph % (Auto) Cancelled, Saunders % (Auto) Cancelled, Eos % (Auto) Cancelled, Baso % (Auto) Cancelled, Absolute Neuts (auto) Cancelled, Absolute Lymphs (auto) Cancelled, Total Counted Cancelled, Neutrophils % (Manual) Cancelled, Band Neutrophils % Cancelled, Lymphocytes % (Manual) Cancelled, Monocytes % (Manual) Cancelled, Eosinophils % (Manual) Cancelled, Basophils % (Manual) Cancelled, Metamyelocytes % Cancelled, Myelocytes % Cancelled, Promyelocytes % Cancelled, Blast Cells % Cancelled, Plasma Cell % (Manual) Cancelled, Other Cells % Cancelled, Nucleated RBC % Cancelled, Nucleated RBCs/100 WBC Cancelled, Differential Comment Cancelled, Diff Path Review Cancelled, Hypersegmented Neuts Cancelled, Atypical Lymphocytes Cancelled, Reactive Lymphocytes Cancelled, Smudge Cells Cancelled, Toxic Granulation Cancelled, Toxic Vacuolation Cancelled, Dohle Bodies Cancelled, [place] Rods Cancelled, Platelet Estimate Cancelled, Plt Morphology Comment Cancelled, RBC Morphology Cancelled, Polychromasia Cancelled, Hypochromasia Cancelled, Poikilocytosis Cancelled, Basophilic Stippling Cancelled, Anisocytosis Cancelled, Microcytosis Cancelled, Macrocytosis Cancelled, Spherocytes Cancelled, Sickle Cells Cancelled, Target Cells Cancelled, Tear Drop Cells Cancelled, Ovalocytes Cancelled, Stomatocytes Cancelled, Xie[place] Bodies Cancelled, Damian Cells Cancelled, Bite Cells Cancelled, Crenated Cell Cancelled, Acanthocytes (Spur) Cancelled, Rouleaux Cancelled, Schistocytes Cancelled 01/09/23 05:50: Sodium Cancelled, Potassium Cancelled, Chloride Cancelled, Carbon Dioxide Cancelled, Anion Gap Cancelled, BUN Cancelled, Creatinine Cancelled, Estim Creat Clear Calc Cancelled, Est GFR (MDRD) Af Amer Cancelled, Est GFR (MDRD) Non-Af Cancelled, BUN/Creatinine Ratio Cancelled, Glucose Cancelled, Calcium Cancelled, Total Bilirubin Cancelled, AST Cancelled, ALT Cancelled, Alkaline Phosphatase Cancelled, Total Protein Cancelled, Albumin Cancelled, Globulin Cancelled, Albumin/Globulin Ratio Cancelled 01/09/23 06:35: Sodium 140, Potassium 2.8 L, Chloride 107, Carbon Dioxide 26.0, Anion Gap 7, BUN 17, Creatinine 0.80, Estim Creat Clear Calc 42.32, Est GFR (MDRD) Af Amer 88, Est GFR (MDRD) Non-Af 73, BUN/Creatinine Ratio 21.2 H, Glucose 124 H, Calcium 8.8, Total Bilirubin 0.50, AST 47 H, ALT 14, Alkaline Phosphatase 72, Total Protein 6.8, Albumin 3.1 L, Globulin 3.7, Albumin/Globulin Ratio 0.8 L 01/09/23 06:35: WBC 13.6 H, RBC 4.77, Hgb 13.2, Hct 39.5, MCV 82.8, MCH 27.7, MCHC 33.4, RDW Std Deviation 39.1, RDW Coeff of Arias 12.9, Plt Count 414, MPV 9.5, Immature Gran % (Auto) 0.600, Neut % (Auto) 86.9 H, Lymph % (Auto) 5.9 L, Saunders % (Auto) 6.3, Eos % (Auto) 0.1, Baso % (Auto) 0.2, Absolute Neuts (auto) 11.8 H, Absolute Lymphs (auto) 0.80 L, Nucleated RBC % 0 Micro: Microbiology 01/08/23 08:47 Stool Enteric Bacteriology - Final Radiography Diagnostic Testing: Radiology Impression MRCP 01/08/23 10:00 IMPRESSION: 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 Cirrhotic liver. Moderate ascites. Moderate sized hiatal hernia. Electronically Signed: Kole Nova MD, SANTOS at 10:57 EDT , ADDENDUM: 01/08/23 1113 IMPRESSION: undefined ADDENDUM: 01/08/23 1240 IMPRESSION: undefined Rhythm Strip Rhythm Strip: Sinus Rhythm Rate: 71 Ectopy: None Physical Exam Narrative General: Alert, oriented, no apparent distress HEENT: Atraumatic, normocephalic Eyes: Anicteric, normal conjunctiva, extraocular movements grossly intact Neck: Supple Respiratory: Clear to auscultation bilaterally, normal respiratory effort Cardiovascular: Regular rate and rhythm GI: Soft, nondistended, no significant tenderness, no rebound, guarding, rigidity Extremities: No edema Musculoskeletal: Moving all extremities Neuro: No overt focal neurological deficits Skin: No rashes appreciated Psych: Cooperative Assessment & Plan Assessment/Plan (1) Cirrhosis: (2) Mass of peritoneum: (3) Nausea & vomiting: (4) Generalized weakness: PLAN: Plan 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 -She is not known to have cirrhosis with ascites. -Started on Lasix and Aldactone.? Hydrochlorothiazide held. -Gastroenterology consulted.? 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 -Will need peritoneal biopsy with paracentesis and cytology of the fluid, CT-guided biopsy ordered for tomorrow -Remains on Lasix, spironolactone, lactulose, Xifaxan #Intractable nausea -Was concern for gastroenteritis -Possibly secondary to peritoneal carcinomatosis -Still on rocephin -Enteric panel negative -Slightly improved with Reglan -Adding nutritional supplements support due to poor p.o. #Hypokalemia -Likely due to multiple bowel movements -Replace #History of myasthenia gravis -On pyridostigmine and mycophenolate. #Hypothyroidism:on synthroid #DVT ppx: SCDs Florecita Delacruz MD Time spent in the patient's overall evaluation,decision-making process, review of diagnostic data, adjustment of management, discussion with other providers, nursing nursing and ancillary staff involved in patient's care documentation, 60 minutes Charges/Coding Visit Charges Inpatient E&M: 76614 Subs Hosp L2
[2023-01-09 09:00] VITALS: BP 171/81; PULSE 82; RESP 16; TEMP 36.7; O2SAT 97
[2023-01-09] MEDS: rifAXIMin 550 MG Tablet PO ×2 (09:18→21:45)
[2023-01-09] MEDS: Furosemide 40 MG Tablet PO (09:19)
[2023-01-09] MEDS: Losartan Potassium 50 MG Tablet PO (09:19)
[2023-01-09] MEDS: Mycophenolate Mofetil 250 MG Capsule 500 MG PO ×2 (09:19→21:43)
[2023-01-09] MEDS: Spironolactone 50 MG Tablet PO (09:20)
[2023-01-09] MEDS: Lactulose 20 GM/30 ML UDC PO ×2 (09:20→21:44)
[2023-01-09] MEDS: Potassium Chloride 10mEq/100mL 10 MEQ/100 ML IV.SOLN. 100 MEQ IV BOLUS ×3 (11:49→14:18)
[2023-01-09] MEDS: amLODIPine 5 MG Tablet PO (11:49)
[2023-01-09] MEDS: Ensure Plus High Protein 120 ML LIQUID PO ×2 (11:54→17:06)
[2023-01-09 12:07] LABS: HEPATITIS B SURFACE AG Negative (Negative); Hep C Antibodies Non Reactive (Non Reactive); Hepatitis A IgM Antibody Negative (Negative); Hepatitis B Core AB IgM Negative (Negative)
[2023-01-09 14:37] VITALS: BP 141/72; PULSE 78; RESP 16; TEMP 35.1; O2SAT 94
[2023-01-09] MEDS: Ceftriaxone 1 GM/50 ML BAG IV (21:43)
[2023-01-09 21:50] VITALS: BP 151/77; PULSE 85; RESP 20; TEMP 36.2; O2SAT 94
[2023-01-10] VITALS (7 sets, daily range): BP systolic 119–152; BP diastolic 63–95; PULSE 63–108; RESP 16–20; TEMP 36.4–36.9; O2SAT 93–97
[2023-01-10] MEDS: Metoclopramide 10 MG/2 ML Vial 5 MG IV ×5 (00:36→23:19)
[2023-01-10] MEDS: Pyridostigmine Bromide 60 MG Tablet PO ×3 (06:40→22:53)
[2023-01-10] MEDS: Levothyroxine 88 MCG Tablet PO (06:40)
[2023-01-10] MEDS: 0.9% Saline Lock 10 ML Syringe IV ×5 (06:53→23:20)
[2023-01-10 07:09] LABS: Absolute Lymphocyte Count 1.22 X10^3/uL (0.83-4.51); Absolute Neutrophil Count 11.1 X10^3/uL (2.0-7.7); Basophil# 0.07 X10^3/uL; Basophil% 0.5 % (0-1); Eosinophil# 0.04 X10^3/uL; Eosinophils% 0.3 % (0-5); Hematocrit 41.2 % (37-47); Hemoglobin 13.5 g/dL (12.0-15.0); Lymphocyte # 1.22 X10^3/ul (0.83-4.51); Mean Corp Hgb Conc 32.8 g/dL (32-36); Mean Corpuscular Hgb 27.5 pg (27.0-32.0); Mean Corpuscular Volume 83.9 fL (81-99); Monocyte# 0.99 X10^3/uL; Monocyte% 7.3 % (0-10); NRBC Flagged by Analyzer 0 % (0-5); Neutrophil % 81.9 % (47-70); Platelet Count 441 K/mm3 (150-450); RBC Distribution Width SD 39.7 fl (35.1-43.9); Red Blood Count 4.91 M/mm3 (4.2-5.4); White Blood Count 13.6 K/mm3 (4.4-11.0)
[2023-01-10 07:30] LABS: Anion Gap 4 (5-15); BUN 21 mg/dL (7-18); BUN/Creat Ratio 26.2 RATIO (10-20); Calcium,Total 8.9 mg/dL (8.5-10.1); Chloride 107 mmol/L (98-107); EST Glomerular Filtration Rate 73 mL/min (>60); Est Glom Filt Rate - Afr Amer 89 mL/min (>60); Estimated Creatinine Clearance 42.32 ml/min; Glucose 115 mg/dL (74-106); Sodium Level 138 mmol/L (136-145)
[2023-01-10] MEDS: Ondansetron 4 MG/2 ML Vial IV (08:22)
[2023-01-10 08:43] LABS: International Normalized Ratio 1.2; Partial Thromboplast Time 26.1 Seconds (24.1-36.2); Prothrombin Time (Protime)PT. 14.5 SECONDS (11.7-14.9)
--- NOTE | 2023-01-10 09:00 | CT_ITS ---
PROCEDURE: CT GUIDED biopsy of the left retroperitoneal mass. DATE: January 11, 2023. INDICATION: Female, 82 years old. Peritoneal metastasis. PHYSICIAN: Joel Hutton M.D. RADIATION DOSAGE (If Supplied By Facility): CTDIvol = ( 20 ) mGy, DLP = ( 519.21 ) mGycm. Individualized dose optimization techniques were utilized. PROCEDURE: The risks, benefits, and alternatives to the procedure were explained to the patient. The specific risk of hemorrhage requiring further treatment or intervention was detailed and accepted. Follow-up instructions were discussed with the patient as well. Written informed consent was obtained. The patient was brought into the CT suite and placed in the prone position. . An appropriate entry site was identified. The overlying skin was prepped and draped in the usual sterile fashion. 1% lidocaine was administered subcutaneously for local anesthesia. Conscious sedation was performed. The patient received 2 mg of Versed and 50 mcg of fentanyl intravenously. Conscious sedation was started at 11:01 AM and terminate at 11:20 AM. The patient was independently monitored by the department nurse. Under CT guidance, a total of 5 passes were performed with an 18-gauge core biopsy needle. The specimens were then placed in the appropriate fluid and transported to the laboratory for analysis. Hemostasis was obtained. The patient tolerated the procedure well without immediate complications. CT/Biopsy/Inj or Needle Placement IMPRESSION: Successful CT guided biopsy of the left retroperitoneal mass, as described above. Conscious sedation protocol was followed. Electronically Signed: Joel Hutton MD at 12:30 EDT ,
[2023-01-10] MEDS: Potassium Chloride 10mEq/100mL 10 MEQ/100 ML IV.SOLN. 100 MEQ IV BOLUS ×4 (09:49→13:24)
--- NOTE | 2023-01-10 10:39 | PCM.PN.HOSP ---
Reason for Visit Reason for Visit: Diagnoses Acute gastroenteropathy due to [place] agent (01/08/23) Noninfective gastroenteritis and colitis, unspecified (01/08/23) Other specified disorders of peritoneum (01/08/23) Unspecified cirrhosis of liver (01/08/23) Nausea with vomiting, unspecified (01/08/23) Weakness (01/08/23) Subjective Subjective Feeling roughly the same this morning. Still poor p.o., still having bowel movements. No overt abdominal pain but does continue to have nausea Objective Data Objective Data Vital Signs: Vital Signs Temp Pulse Resp BP Pulse Ox O2 Del Method 98.4 F 80 16 146/79 H 96 Room Air 01/10/23 09:04 01/10/23 09:04 01/10/23 09:04 01/10/23 09:04 01/10/23 09:04 01/10/23 09:04 Oxygen Delivery Method Room Air Weight: 84.3 kg Body Mass Index (BMI) 35.1 Intake & Output: Intake and Output for Last 24 Hours 01/08/23 01/09/23 01/10/23 23:59 23:59 23:59 Intake Total 170 / 170 1010 / 1010 Output Total 175 / 175 600 / 600 Balance -5 / -5 1010 / 710 -600 / -600 Lab / Micro Data Result Diagrams: 01/10/23 06:27 01/10/23 06:27 Labs: Laboratory Results - last 24 hr 01/07/23 18:07: Hepatitis A IgM Ab Negative, Hep Bs Antigen Negative, Hep B Core IgM Ab Negative, Hepatitis C Ab (EIA) Non Reactive, Hep C Ab Comment Comment 01/10/23 06:27: WBC 13.6 H, RBC 4.91, Hgb 13.5, Hct 41.2, MCV 83.9, MCH 27.5, MCHC 32.8, RDW Std Deviation 39.7, RDW Coeff of Arias 13.0, Plt Count 441, MPV 10.0, Immature Gran % (Auto) 1.000 H, Neut % (Auto) 81.9 H, Lymph % (Auto) 9.0 L, [place] % (Auto) 7.3, Eos % (Auto) 0.3, Baso % (Auto) 0.5, Absolute Neuts (auto) 11.1 H, Absolute Lymphs (auto) 1.22, Nucleated RBC % 0 01/10/23 06:27: Sodium 138, Potassium 3.0 L, Chloride 107, Carbon Dioxide 27.0, Anion Gap 4 L, BUN 21 H, Creatinine 0.80, Estim Creat Clear Calc 42.32, Est GFR (MDRD) Af Amer 89, Est GFR (MDRD) Non-Af 73, BUN/Creatinine Ratio 26.2 H, Glucose 115 H, Calcium 8.9 01/10/23 08:27: PT 14.5, INR 1.2, APTT 26.1 Micro: Microbiology 01/07/23 18:40 Blood Culture (Wb) - Anticubital Left Blood Culture - Preliminary No growth in 48 hours. 01/07/23 18:07 Blood Culture (Wb) - Anticubital Right Blood Culture - Preliminary No growth in 48 hours. 01/08/23 08:47 Stool Enteric Bacteriology - Final Rhythm Strip Rhythm Strip: Sinus Rhythm Rate: 71 Ectopy: None Physical Exam Narrative General: Alert, oriented, no apparent distress HEENT: Atraumatic, normocephalic Eyes: Anicteric, normal conjunctiva, extraocular movements grossly intact Neck: Supple Respiratory: Clear to auscultation bilaterally, normal respiratory effort Cardiovascular: Regular rate and rhythm GI: Soft, nondistended, no significant tenderness, no rebound, guarding, rigidity Extremities: No edema Musculoskeletal: Moving all extremities Neuro: No overt focal neurological deficits Skin: No rashes appreciated Psych: Cooperative Assessment & Plan Assessment/Plan (1) Cirrhosis: (2) Mass of peritoneum: (3) Nausea & vomiting: (4) Generalized weakness: PLAN: Plan 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 -She is not known to have cirrhosis with ascites. -Started on Lasix and Aldactone.? Hydrochlorothiazide held. -Gastroenterology consulted.? 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 -Will need peritoneal biopsy with paracentesis and cytology of the fluid, CT-guided biopsy ordered for tomorrow -Remains on Lasix, spironolactone, lactulose, Xifaxan -01/10: Initially was going to have CT biopsy 01/10 but this was changed to paracentesis with cytology however ultrasound did not identify no fluid for safe sampling. Patient does still have CT-guided biopsy next 1 to 2 days based on documentation #Intractable nausea -Was concern for gastroenteritis -Possibly secondary to peritoneal carcinomatosis -Still on rocephin -Enteric panel negative -Slightly improved with Reglan -Adding nutritional supplements support due to poor p.o. #Hypokalemia -Likely due to multiple bowel movements -Replace #History of myasthenia gravis -On pyridostigmine and mycophenolate. #Hypothyroidism:on synthroid #DVT ppx: SCDs Florecita Delacruz MD Time spent in the patient's overall evaluation,decision-making process, review of diagnostic data, adjustment of management, discussion with other providers, nursing nursing and ancillary staff involved in patient's care documentation, 30 minutes Charges/Coding Visit Charges Inpatient E&M: 89275 Subs Hosp L2
--- NOTE | 2023-01-10 11:21 | US_ITS ---
STUDY: ABDOMINAL ULTRASOUND -4 quadrants. REASON FOR VISIT: Female, 82 years old cytology -- ASCITES survey. TECHNIQUE: Ultrasound evaluation of the right upper quadrant was performed with real-time and static chance-scale imaging. TECHNICAL QUALITY: Adequate. COMPARISON: None. FINDINGS: The 4 quadrants were assessed for ascites. A small pocket of fluid is seen in the left lower quadrant. Not enough for safe paracentesis. US/Abdomen Limited IMPRESSION: None enough fluid for safe paracentesis. Electronically Signed: Joel Hutton MD at 18:10 EDT ,
[2023-01-10] MEDS: Mycophenolate Mofetil 250 MG Capsule 500 MG PO ×2 (11:32→22:54)
[2023-01-10] MEDS: Losartan Potassium 50 MG Tablet PO (11:33)
[2023-01-10] MEDS: Furosemide 40 MG Tablet PO (11:33)
[2023-01-10] MEDS: rifAXIMin 550 MG Tablet PO ×2 (11:33→23:17)
[2023-01-10] MEDS: amLODIPine 5 MG Tablet PO (11:33)
[2023-01-10] MEDS: Spironolactone 50 MG Tablet PO (11:33)
[2023-01-10] MEDS: Ensure Plus High Protein 120 ML LIQUID PO ×2 (11:34→17:42)
[2023-01-10] MEDS: Lactulose 20 GM/30 ML UDC PO ×2 (11:34→22:56)
[2023-01-10 12:01] LABS: Anti-Mitochondrial AB <20.0 Units (0.0-20.0)
[2023-01-10 14:08] LABS: Anti-Centromere B Ab <0.2 AI (0.0-0.9); Anti-Chromatin <0.2 AI (0.0-0.9); Anti-Jo <0.2 AI (0.0-0.9); Anti-Scleroderma-70 AB <0.2 AI (0.0-0.9); RNP Ab 0.5 AI (0.0-0.9); SJOGREN'S Anti-SS-A test < 0.2 AI (0.0-0.9); SJOGREN'S Anti-SS-B test < 0.2 AI (0.0-0.9); Smith Ab <0.2 AI (0.0-0.9)
[2023-01-10 14:32] LABS: Anti-dsDNA Ab 1 IU/mL (0-9)
--- NOTE | 2023-01-10 15:30 | CASEMGMT ---
Addendum entered by Irena Manzo 01/10/23 16:23: Charge nurse and pt nurse made RN CM aware that pt dtr is upset that RN CM suggested pt will dc. RN CM into pt room within 10 minutes of being aware, pt dtr had left the hospital for an appt. Discussed with pt that this RN CM was planning for dc with the information at the time but this can change. Pt states her dtr does not want her to dc prior to biopsy results back. Pt states she does not feel safe returning home and would like to go to [facility]. Made pt aware that this RN CM will follow with her along her hospital stay for the best dc plan and see how pt progresses. Pt and agreeable to this. Original Note: RN CM Assessment: Face to Face with pt for initial transition planning/care coordination assessment. RN CM introduced self and role at [facility], pt voices understanding and consents to assessment. Pt is A/O x4 and answers all questions appropriately at this time. Pt lying in bed with at bedside. Care providers, pharmacy, and demographics verified/updated. Admitting Dx: gastroenteritis & cirrhosis with ascites PCP:Lance Specialists: wendi Alatorre Preferred Pharmacy: [facility] Insurance: [employer] Prescription Benefit: yes LNOK: Ryan Ryan, ; Armida Ramirez, dtr Living Arrangements: [place] lives with in [place] on an apt on the second floor with an elevator to enter. Pt reports she is mostly I in ADL's and her assists for safety. Pt denies concerns at home. Transportation: Pt provides transportation for pt. DME/HHC/SNF: Pt has a rollator, cane, w/c and pull cords in the bathroom. Pt has had HHC in the past but is unsure of which agency provided it. Pt denies SNF stays. Pt states no concerns with going home at time of dc. She is aware that HHC was recommended and she is open to this. Patient was provided a list of HHC providers including quality and resource use data and consistent with the patient?s preferred geographic region, medical needs, and insurance network were provided from the [employer] Guide. Pt to review list and RN CM to check back. Pt dtr arrived at very end of assessment. Pt states no further concerns/needs. CM to follow. Advised pt to ask CM if any further question/concerns/needs arise, voices understanding. Pt Goal: Home with HHC Plan: Home with HHC
[2023-01-10 16:09] LABS: Albumin 3.3 g/dL (2.9-4.4); Alpha-1-Globulins 0.4 g/dL (0.0-0.4); Cytoplasmic Ab (C-ANCA) 1:20 titer (Neg:<1:20); Gamma Globulin 1.3 g/dL (0.4-1.8); Immunoglobulin A 216 mg/dL (64-422); Immunoglobulin G 1307 mg/dL (586-1602); Immunoglobulin M 104 mg/dL (26-217); PROEL- TOTAL PROTEIN 6.9 g/dL (6.0-8.5)
[2023-01-10 17:45] LABS: AFP, Tumor Marker 2.4 ng/mL (0.0-9.2); Anti-Smooth Muscle ABS 10 Units (0-19); Carbohydrate AG 19-9 78 U/mL (0-35); Carcinoembryonic Antigen 3.9 ng/mL (0.0-4.7); Perinuclear Ab (P-ANCA) <1:20 titer (Neg:<1:20)
--- NOTE | 2023-01-10 20:47 | PCM.PROGNOTE ---
Subjective Subjective Patient still feels very nauseated. Her appetite is still very poor. Objective Data Objective Data Vital Signs: Vital Signs Temp Pulse Resp BP Pulse Ox O2 Del Method 97.6 F L 89 16 140/80 H 97 Room Air 01/10/23 15:38 01/10/23 15:38 01/10/23 15:38 01/10/23 15:38 01/10/23 15:38 01/10/23 15:38 Oxygen Delivery Method [2] Room Air Oxygen Delivery Method [1 ( Room Air Initial Baseline)] Oxygen Delivery Method Room Air Weight: 185 lb 13.595 oz Body Mass Index (BMI) 35.1 Intake & Output: Intake and Output for Last 24 Hours 01/08/23 01/09/23 01/10/23 23:59 23:59 23:59 Intake Total 170 / 170 1010 / 1010 568.33 / 568.33 Output Total 175 / 175 600 / 600 Balance -5 / -5 1010 / 710 -31.67 / -31.67 Lab / Micro Data Result Diagrams: 01/10/23 06:27 01/10/23 06:27 Labs: Laboratory Results - last 24 hr 01/07/23 18:07: KATHIA-1 Antibody <0.2, SS-A/Ro IgG Antibody < 0.2, SS-B/La IgG Antibody < 0.2, Sm ([place]) Antibody <0.2, PRODUCT DEVELOPMENT WORKER Antibody 0.5, Scl-70 Scleroderma Ab <0.2, Double Strand DNA Ab 1, Centromere B Antibody <0.2 01/07/23 18:07: Anti-Mitochondrial Ab <20.0 01/07/23 : Total Protein (PEP) 6.9, Globulin 3.6, Tumor Marker AFP 2.4, Carcinoembryonic Ag 3.9, CA 19-9 Antigen 78 H, IgG 1307, IgA 216, IgM 104, Immunofixation Screen Comment, Albumin (HERNANDEZ) 3.3, Albumin/Globulin (HERNANDEZ) 1.0, Imxav-8-Dwbvcfjfu HERNANDEZ 0.4, Rifpp-8-Qxezwmlvh HERNANDEZ 1.0, Beta-Globulins (HERNANDEZ) 0.9, Gamma Globulins (HERNANDEZ) 1.3, HERNANDEZ M-Gunner , HERNANDEZ Comments Comment, c-ANCA Antibody 1:20 H, Atypical p-ANCA <1:20, p-ANCA Antibody <1:20, Anti-Smooth Muscle Ab 10 01/10/23 06:27: WBC 13.6 H, RBC 4.91, Hgb 13.5, Hct 41.2, MCV 83.9, MCH 27.5, MCHC 32.8, RDW Std Deviation 39.7, RDW Coeff of Arias 13.0, Plt Count 441, MPV 10.0, Immature Gran % (Auto) 1.000 H, Neut % (Auto) 81.9 H, Lymph % (Auto) 9.0 L, [place] % (Auto) 7.3, Eos % (Auto) 0.3, Baso % (Auto) 0.5, Absolute Neuts (auto) 11.1 H, Absolute Lymphs (auto) 1.22, Nucleated RBC % 0 01/10/23 06:27: Sodium 138, Potassium 3.0 L, Chloride 107, Carbon Dioxide 27.0, Anion Gap 4 L, BUN 21 H, Creatinine 0.80, Estim Creat Clear Calc 42.32, Est GFR (MDRD) Af Amer 89, Est GFR (MDRD) Non-Af 73, BUN/Creatinine Ratio 26.2 H, Glucose 115 H, Calcium 8.9 01/10/23 08:27: PT 14.5, INR 1.2, APTT 26.1 Micro: Microbiology 01/07/23 18:40 Blood Culture (Wb) - Anticubital Left Blood Culture - Preliminary No growth in 48 hours. 01/07/23 18:07 Blood Culture (Wb) - Anticubital Right Blood Culture - Preliminary No growth in 48 hours. 01/08/23 08:47 Stool Enteric Bacteriology - Final Radiography Diagnostic Testing: Radiology Impression Abdomen Ultrasound 01/10/23 11:21 IMPRESSION: None enough fluid for safe paracentesis. Electronically Signed: Joel Hutton MD at 18:10 EDT , Rhythm Strip Rhythm Strip: Sinus Rhythm Rate: 71 Ectopy: None Physical Exam Narrative General: Alert, oriented, no apparent distress HEENT: Atraumatic, normocephalic Eyes: Anicteric, normal conjunctiva, extraocular movements grossly intact Neck: Supple Respiratory: Clear to auscultation bilaterally, normal respiratory effort Cardiovascular: Regular rate and rhythm GI: Soft, nondistended, no significant tenderness, no rebound, guarding, rigidity Extremities: No edema Musculoskeletal: Moving all extremities Neuro: No overt focal neurological deficits Skin: No rashes appreciated Psych: Cooperative Assessment & Plan Assessment/Plan (1) Mass of peritoneum: PLAN: There is a mass in the peritoneum along with omental caking likely secondary to peritoneal carcinomatosis. The differential diagnosis does include primary ovarian, sarcoma, hepatocellular with metastasis, lymphoma. She will need a peritoneal biopsy as the paracentesis was not done because it was not enough fluid to sample.. I already beth a CA 19-9, CA125, CEA, LDH and protein electrophoresis. I suspect that she is nauseous and not able to eat secondary to peritoneal carcinomatosis. Continue scheduled Reglan. (2) Cirrhosis: PLAN: Cirrhosis likely secondary to Pierre versus autoimmune liver disease. Work-up is in progress. There is no other sign of decompensated liver disease at this time except for ascites. There is no signs of jaundice, encephalopathy or GI bleeding. Charges/Coding Visit Charges Inpatient E&M: 72483 Subs Hosp L3
[2023-01-10] MEDS: Ceftriaxone 1 GM/50 ML BAG IV (22:55)
[2023-01-11] VITALS (13 sets, daily range): BP systolic 96–133; BP diastolic 55–72; PULSE 67–105; RESP 16–20; TEMP 36.1–36.7; O2SAT 94–100; BMI 35.1
--- NOTE | 2023-01-11 | IMM_PTH ---
PATIENT: PAPI SMITH LOC: MS3 U#:[id number] AGE/SX: 82/F ROOM: [facility] RE01/08/[address]: Dr. Florecita Delacruz MD : 1940 BED: 1 DIS: 01/12/2023 SPEC #: [id number] RECD: 01/11/23 14:00 STATUS: VENUS REQ #: [id number] DEREK: 01/11/23 00:[address]: Florecita Delacruz DEPT: IMMUNOHISTOCHEMISTRY RECD BY: Kae Long ENTERED: 01/11/23 14:03 SP TYPE: IMMUNO OTHR DR: MD Dr. Joel Jean-Baptiste MD Dr. Nana Yaa Koram, MD Dr. Nicholas F Kotsonis, MD Tissues: Peritoneal cavity, NOS Procedures: Synapto (add) BCL-2 (add) BCL-6 (add) CD10 (add) CD20 (add) CD23 (add) CD3 (add) CD43 (add) CD45 (add) CD5 (add) CD56 (add) CD79A (add) CHROMO (add) CK8 (add) CYCLIN (add) DESMIN (add) KI-67 (add) Vimentin (add) MUM1 (add) C-MYC (add) Pankeratin (initial) PHYSICIAN & INSTITUTION [place] [id number] SPECIMEN INFORMATION: Tissue Source: Peritoneal biopsy Clinical Info: Left retroperitoneal mass Specimen Number: [id number] CPT code: 14343, 83542 x20 METHODOLOGY: Deparaffinized sections of prefer/formalin-fixed tissue or PAP/DQ stained slides are incubated with monoclonal/polyclonal antibodies/oligonucleotide probes. Localization is made via biotin free immunoperoxidase method. Appropriate controls are performed and reacted as expected. Results on target cell population are indicated in the following table: RESULTS: ANTIBODY / CLONE RESULT AE1-3 (AE1/AE3/PCK26) positive, focal, scattered cells CK8 (47ewinB45) positive, focal CD3 (PS1) negative CD5 (SP10) negative CD10 (56C6) positive CD20 (L26) negative CD23 (1B12) negative CD43 (L60) negative CD45 (RP2/18) negative CD79a (11E3) negative BCL-2 (bcl-2/100/D5) positive, focal weak BCL-6 (HQ231A/A8) negative Cyclin D1/BCL-1 (SP4) negative MUM1 (MRQ-43) negative C-MYC (Y69) negative Ki-67 (30-9) positive, high, 95% Vimentin (V9) positive Chromo (LK2H10) negative Synapto (polyclonal) positive, weak CD56 (123C3.D5) positive Desmin (CE-R-11) negative These tests were developed and their performance characteristics determined by [facility]. They may not have been cleared or approved by the U.S. Food and Drug Administration. The FDA has determined that such clearance or approval is not necessary. The above immunohistochemical/dualISH markers are ordered and reviewed by the Pathologist. INTERPRETATION: Left retroperitoneal mass, CT-guided core biopsy: High-grade neuroendocrine carcinoma, compatible with small cell carcinoma, favor Mullerian primary. See comment. The specimen is [facility] to [facility] for expert opinion, reviewed by Dr. Rock and the above diagnosis is rendered. [facility] stains [facility] supports the above diagnosis. The complete report is viewable in the patient's EMR. Case has been reviewed in consultation with Dr. Mir who concurs with the above diagnosis. IDC:[id number] SJ:anila 01/26/2023
[2023-01-11] MEDS: Metoclopramide 10 MG/2 ML Vial 5 MG IV ×4 (06:00→23:27)
[2023-01-11] MEDS: Pyridostigmine Bromide 60 MG Tablet PO ×3 (06:00→21:21)
[2023-01-11] MEDS: Levothyroxine 88 MCG Tablet PO (06:00)
[2023-01-11] MEDS: 0.9% Saline Lock 10 ML Syringe IV ×4 (06:02→21:17)
[2023-01-11 07:27] LABS: Absolute Lymphocyte Count 1.78 X10^3/uL (0.83-4.51); Absolute Neutrophil Count 10.1 X10^3/uL (2.0-7.7); Basophil# 0.07 X10^3/uL; Basophil% 0.5 % (0-1); Eosinophil# 0.14 X10^3/uL; Eosinophils% 1.1 % (0-5); Hemoglobin 13.4 g/dL (12.0-15.0); Lymphocyte # 1.78 X10^3/ul (0.83-4.51); Lymphocyte % 13.5 % (19-41); Mean Corp Hgb Conc 32.7 g/dL (32-36); Mean Corpuscular Hgb 27.2 pg (27.0-32.0); Mean Corpuscular Volume 83.3 fL (81-99); Mean Platelet Vol. 10.2 fl (6.2-12.0); Monocyte# 1.02 X10^3/uL; Monocyte% 7.7 % (0-10); NRBC Flagged by Analyzer 0 % (0-5); Neutrophil # 10.06 X10^3/uL (2.7-7.7); Neutrophil % 76.1 % (47-70); Platelet Count 441 K/mm3 (150-450); RBC Distribution Width CV 13.3 % (11.6-14.6); RBC Distribution Width SD 40.4 fl (35.1-43.9); Red Blood Count 4.92 M/mm3 (4.2-5.4); White Blood Count 13.2 K/mm3 (4.4-11.0)
[2023-01-11 08:02] LABS: Anion Gap 6 (5-15); BUN 26 mg/dL (7-18); BUN/Creat Ratio 26.2 RATIO (10-20); Calcium,Total 8.8 mg/dL (8.5-10.1); Chloride 106 mmol/L (98-107); Creatinine, Serum 0.99 mg/dL (0.55-1.02); EST Glomerular Filtration Rate 57 mL/min (>60); Est Glom Filt Rate - Afr Amer 69 mL/min (>60); Glucose 97 mg/dL (74-106); Potassium 3.4 mmol/L (3.5-5.1); Sodium Level 136 mmol/L (136-145)
--- NOTE | 2023-01-11 08:48 | PCM.PN.HOSP ---
Reason for Visit Reason for Visit: Diagnoses Acute gastroenteropathy due to [place] agent (01/08/23) Noninfective gastroenteritis and colitis, unspecified (01/08/23) Other specified disorders of peritoneum (01/08/23) Unspecified cirrhosis of liver (01/08/23) Nausea with vomiting, unspecified (01/08/23) Weakness (01/08/23) Subjective Subjective Patient imminently being wheeled down for CT-guided biopsy, reports feeling roughly the same with some nausea and poor p.o. and some vague abdominal discomfort with no new complaints. Objective Data Objective Data Vital Signs: Vital Signs Temp Pulse Resp BP Pulse Ox O2 Del Method 97.7 F L 67 16 117/62 95 Room Air 01/11/23 08:27 01/11/23 08:27 01/11/23 08:27 01/11/23 08:27 01/11/23 08:27 01/11/23 08:27 Oxygen Delivery Method [2] Room Air Oxygen Delivery Method [1 ( Room Air Initial Baseline)] Oxygen Delivery Method Room Air Weight: 84.3 kg Body Mass Index (BMI) 35.1 Intake & Output: Intake and Output for Last 24 Hours 01/09/23 01/10/23 01/11/23 23:59 23:59 23:59 Intake Total 1010 / 1010 618.33 / 818.33 200 / 200 Output Total 600 / 600 Balance 1010 / 710 18.33 / 218.33 200 / 200 Lab / Micro Data Result Diagrams: 01/11/23 06:38 01/11/23 06:38 Labs: Laboratory Results - last 24 hr 01/07/23 18:07: KATHIA-1 Antibody <0.2, SS-A/Ro IgG Antibody < 0.2, SS-B/La IgG Antibody < 0.2, Sm ([place]) Antibody <0.2, CATTLE INSPECTOR Antibody 0.5, Scl-70 Scleroderma Ab <0.2, Double Strand DNA Ab 1, Centromere B Antibody <0.2 01/07/23 18:07: Anti-Mitochondrial Ab <20.0 01/07/23 : Total Protein (PEP) 6.9, Globulin 3.6, Tumor Marker AFP 2.4, Carcinoembryonic Ag 3.9, CA 19-9 Antigen 78 H, IgG 1307, IgA 216, IgM 104, Immunofixation Screen Comment, Albumin (HERNANDEZ) 3.3, Albumin/Globulin (HERNANDEZ) 1.0, Kzlfm-2-Wivyqzolz HERNANDEZ 0.4, Eacou-8-Ynjsffetg HERNANDEZ 1.0, Beta-Globulins (HERNANDEZ) 0.9, Gamma Globulins (HERNANDEZ) 1.3, HERNANDEZ M-Gunner , HERNANDEZ Comments Comment, c-ANCA Antibody 1:20 H, Atypical p-ANCA <1:20, p-ANCA Antibody <1:20, Anti-Smooth Muscle Ab 10 01/11/23 06:38: WBC 13.2 H, RBC 4.92, Hgb 13.4, Hct 41.0, MCV 83.3, MCH 27.2, MCHC 32.7, RDW Std Deviation 40.4, RDW Coeff of Arias 13.3, Plt Count 441, MPV 10.2, Immature Gran % (Auto) 1.100 H, Neut % (Auto) 76.1 H, Lymph % (Auto) 13.5 L, [place] % (Auto) 7.7, Eos % (Auto) 1.1, Baso % (Auto) 0.5, Absolute Neuts (auto) 10.1 H, Absolute Lymphs (auto) 1.78, Nucleated RBC % 0 01/11/23 06:38: Sodium 136, Potassium 3.4 L, Chloride 106, Carbon Dioxide 24.0, Anion Gap 6, BUN 26 H, Creatinine 0.99, Estim Creat Clear Calc 34.20, Est GFR (MDRD) Af Amer 69, Est GFR (MDRD) Non-Af 57 L, BUN/Creatinine Ratio 26.2 H, Glucose 97, Calcium 8.8 Micro: Microbiology 01/07/23 18:40 Blood Culture (Wb) - Anticubital Left Blood Culture - Preliminary No growth in 48 hours. 01/07/23 18:07 Blood Culture (Wb) - Anticubital Right Blood Culture - Preliminary No growth in 48 hours. 01/08/23 08:47 Stool Enteric Bacteriology - Final Radiography Diagnostic Testing: Radiology Impression Abdomen Ultrasound 01/10/23 11:21 IMPRESSION: None enough fluid for safe paracentesis. Electronically Signed: Joel Hutton MD at 18:10 EDT , Rhythm Strip Rhythm Strip: Sinus Rhythm Rate: 71 Ectopy: None Physical Exam Narrative General: Alert, oriented, no apparent distress HEENT: Atraumatic, normocephalic Eyes: Anicteric, normal conjunctiva, extraocular movements grossly intact Neck: Supple Respiratory: Clear to auscultation bilaterally, normal respiratory effort Cardiovascular: Regular rate and rhythm GI: Soft, nondistended, no significant tenderness, no rebound, guarding, rigidity Extremities: No edema Musculoskeletal: Moving all extremities Neuro: No overt focal neurological deficits Skin: No rashes appreciated Psych: Cooperative Assessment & Plan Assessment/Plan (1) Cirrhosis: (2) Mass of peritoneum: (3) Nausea & vomiting: (4) Generalized weakness: PLAN: Plan 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 -She is not known to have cirrhosis with ascites. -Started on Lasix and Aldactone.? Hydrochlorothiazide held. -Gastroenterology consulted.? 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 -Will need peritoneal biopsy with paracentesis and cytology of the fluid, CT-guided biopsy ordered for tomorrow -Remains on Lasix, spironolactone, lactulose, Xifaxan -01/10: Initially was going to have CT biopsy 01/10 but this was changed to paracentesis with cytology however ultrasound did not identify no fluid for safe sampling. Patient does still have CT-guided biopsy next 1 to 2 days based on documentation -01/11: CT-guided biopsy performed today. If stable tomorrow can likely be discharged with outpatient follow-up #Intractable nausea -Was concern for gastroenteritis -Possibly secondary to peritoneal carcinomatosis -Still on rocephin -Enteric panel negative -Slightly improved with Reglan -Adding nutritional supplements support due to poor p.o. -01/11: Poor p.o. likely due to #1, continue to encourage intake #Hypokalemia -Likely due to multiple bowel movements -Replace #History of myasthenia gravis -On pyridostigmine and mycophenolate. #Hypothyroidism:on synthroid #DVT ppx: SCDs Florecita Delacruz MD Time spent in the patient's overall evaluation,decision-making process, review of diagnostic data, adjustment of management, discussion with other providers, nursing nursing and ancillary staff involved in patient's care documentation, 30 minutes Charges/Coding Visit Charges Inpatient E&M: 43800 Subs Hosp L2
[2023-01-11] MEDS: Midazolam 2 MG/2 ML Syringe IV (11:00)
[2023-01-11] MEDS: fentaNYL 100 MCG/2 ML Ampul IV (11:00)
--- NOTE | 2023-01-11 11:00 | ASPIGT_PTH ---
PATIENT: PAPI SMITH LOC: MS3 U#:[id number] AGE/SX: 82/F [place] [facility] [place]: Dr. Florecita Delacruz MD : 1940 BED: 1 DIS: 01/12/2023 SPEC #: [id number] RECD: 01/11/23 11:15 STATUS: VENUS REQ #: [id number] DEREK: 01/11/23 11:[address]: Florecita Delacruz DEPT: SURGICAL PATHOLOGY RECD BY: Aida Moncada ENTERED: 01/11/23 12:19 SP TYPE: ASP RAD OTHR DR: MD Dr. Joel Jean-Baptiste MD Dr. Nana Yaa Koram, MD Dr. Nicholas F Kotsonis, MD Tissues: Peritoneal cavity, NOS Procedures: FNA Specimen Adequacy Gen Path Consultation (on slides) Special Stain Group II Surgery Specimen Level IV Imprint (control) HEADER OPERATION: CT-guided peritoneal biopsy PRE-OP DIAGNOSIS: Left retroperitoneal mass TISSUE SUBMITTED: Left retroperitoneal mass 18-gauge core x5 MICROSCOPIC DIAGNOSIS Left retroperitoneal mass, CT-guided core biopsy: High-grade neuroendocrine carcinoma, compatible with small cell carcinoma, favor Mullerian primary. See comment. SJ:rg 01/26/2023 COMMENT The specimen is evaluated at the time of biopsy by Dr. Tabares. Immediate Evaluation = Atypical large lymphocytes are noted. The specimen is sent to [facility] for expert opinion, reviewed by Dr. Rock and the above diagnosis is rendered. Immunohistochemistry performed here ([id number]) and also additional immunohistochemical stains performed at [facility] supports the above diagnosis. The complete report is viewable in the patient's EMR. Flow cytometry study from [facility] was canceled due to no viable cells present. This case was discussed with Dr. Kelly of [facility] on 01/17/2023. Case has been reviewed in consultation with Dr. Mir who concurs with the above diagnosis. IDC:AM MICROSCOPIC DESCRIPTION Slides are reviewed. GROSS DESCRIPTION Received in fixative is one container labeled with the patient's name and designated left retroperitoneal mass. The specimen consists of multiple irregular fragments of light martinez soft tissue that in aggregate measure 1.5 x 0.2 x 0.1 cm. The specimen is totally submitted in one cassette. Two touch imprints are prepared at the time of core biopsy. One core is submitted for flow cytometry studies. / SJ:anila 01/11/2023 TC:0 CPT: 02191, 64707
[2023-01-11] MEDS: Lidocaine 2% (20 ml mdv) 20 ML Vial INFILT (11:10)
[2023-01-11] MEDS: Potassium Chloride 10mEq/100mL 10 MEQ/100 ML IV.SOLN. 100 MEQ IV BOLUS ×2 (12:09→13:15)
[2023-01-11] MEDS: Spironolactone 50 MG Tablet PO (12:10)
[2023-01-11] MEDS: Lactulose 20 GM/30 ML UDC PO ×2 (12:11→21:20)
[2023-01-11] MEDS: amLODIPine 5 MG Tablet PO (12:11)
[2023-01-11] MEDS: Furosemide 40 MG Tablet PO (12:11)
[2023-01-11] MEDS: Mycophenolate Mofetil 250 MG Capsule 500 MG PO ×2 (12:11→21:20)
[2023-01-11] MEDS: rifAXIMin 550 MG Tablet PO ×2 (12:11→21:20)
[2023-01-11] MEDS: Losartan Potassium 50 MG Tablet PO (12:12)
[2023-01-11] MEDS: Ensure Plus High Protein 120 ML LIQUID PO ×3 (12:18→21:21)
--- NOTE | 2023-01-11 13:45 | CASEMGMT ---
RN CM into pt room to obtain HHC choices. Pt states she did not look at the list. Pt declined therapy today. Pt dtr present in the room and is adamant that pt is not safe to return home. She states she worked for [employer] and she is aware of ADL's and her mother is not safe. Pt and dtr are requesting a referral be sent to [facility]. Pt declined list of SNF providers including quality and resource use data and consistent with the patient?s preferred geographic region, medical needs, and insurance network from the [facility] Guide. Pt dtr states that her father also called and is looking into [place] instead of [place]. Requested clinicals be sent to the [place] side. Clinicals uploaded to [facility] and sent to [facility] for the [place]. SW aware of request to dc to [facility] skilled.
--- NOTE | 2023-01-11 14:03 | CASEMGMT ---
Social Work RN CM reported to SW that family is requesting skilled level of care and that the preference is [facility]. NATHALIE [facility] [facility]. Will await [facility] on if pt able to be accepted under skilled care or if a possible transition from [place] is recommended. PLAN: [place] vs. [place] vs. [place] [facility]
--- NOTE | 2023-01-11 16:47 | PCM.PROGNOTE ---
Subjective Subjective Patient is very nauseous and is not eating much. Her weight is at 185. However it is a good thing that she has not lost much weight since being in the hospital. She underwent peritoneal biopsy today. Objective Data Objective Data Vital Signs: Vital Signs Temp Pulse Resp BP Pulse Ox O2 Del Method O2 Flow Rate 97.7 F L 72 16 112/57 L 96 Room Air 3 01/11/23 16:08 01/11/23 16:08 01/11/23 16:08 01/11/23 16:08 01/11/23 16:08 01/11/23 16:08 01/11/23 11:00 Oxygen Flow Rate (L/min) [1120 3 ] Oxygen Flow Rate (L/min) [1115 3 ] Oxygen Flow Rate (L/min) [1110 3 ] Oxygen Flow Rate (L/min) [1105 3 ] Oxygen Flow Rate (L/min) [1100 3 ] Oxygen Delivery Method [2] Room Air Oxygen Delivery Method [1 ( Room Air Initial Baseline)] Oxygen Delivery Method [1120] Nasal Cannula Oxygen Delivery Method [1115] Nasal Cannula Oxygen Delivery Method [1110] Nasal Cannula Oxygen Delivery Method [1105] Nasal Cannula Oxygen Delivery Method [1100] Nasal Cannula Oxygen Delivery Method Room Air Weight: 185 lb 13.595 oz Body Mass Index (BMI) 35.1 Intake & Output: Intake and Output for Last 24 Hours 01/09/23 01/10/23 01/11/23 23:59 23:59 23:59 Intake Total 1010 / 1010 618.33 / 818.33 800 / 800 Output Total 600 / 600 Balance 1010 / 710 18.33 / 218.33 800 / 800 Lab / Micro Data Result Diagrams: 01/11/23 06:38 01/11/23 06:38 Labs: Laboratory Results - last 24 hr 01/07/23 : Total Protein (PEP) 6.9, Globulin 3.6, Tumor Marker AFP 2.4, Carcinoembryonic Ag 3.9, CA 19-9 Antigen 78 H, IgG 1307, IgA 216, IgM 104, Immunofixation Screen Comment, Albumin (HERNANDEZ) 3.3, Albumin/Globulin (HERNANDEZ) 1.0, Uejto-5-Werzxdvdm HERNANDEZ 0.4, Jnpvj-4-Uhnwcbtkr HERNANDEZ 1.0, Beta-Globulins (HERNANDEZ) 0.9, Gamma Globulins (HERNANDEZ) 1.3, HERNANDEZ M-Gunner , HERNANDEZ Comments Comment, c-ANCA Antibody 1:20 H, Atypical p-ANCA <1:20, p-ANCA Antibody <1:20, Anti-Smooth Muscle Ab 10 01/11/23 06:38: WBC 13.2 H, RBC 4.92, Hgb 13.4, Hct 41.0, MCV 83.3, MCH 27.2, MCHC 32.7, RDW Std Deviation 40.4, RDW Coeff of Arias 13.3, Plt Count 441, MPV 10.2, Immature Gran % (Auto) 1.100 H, Neut % (Auto) 76.1 H, Lymph % (Auto) 13.5 L, [place] % (Auto) 7.7, Eos % (Auto) 1.1, Baso % (Auto) 0.5, Absolute Neuts (auto) 10.1 H, Absolute Lymphs (auto) 1.78, Nucleated RBC % 0 01/11/23 06:38: Sodium 136, Potassium 3.4 L, Chloride 106, Carbon Dioxide 24.0, Anion Gap 6, BUN 26 H, Creatinine 0.99, Estim Creat Clear Calc 34.20, Est GFR (MDRD) Af Amer 69, Est GFR (MDRD) Non-Af 57 L, BUN/Creatinine Ratio 26.2 H, Glucose 97, Calcium 8.8 Micro: Microbiology 01/07/23 18:40 Blood Culture (Wb) - Anticubital Left Blood Culture - Preliminary No growth in 48 hours. 01/07/23 18:07 Blood Culture (Wb) - Anticubital Right Blood Culture - Preliminary No growth in 48 hours. 01/08/23 08:47 Stool Enteric Bacteriology - Final Radiography Diagnostic Testing: Radiology Impression Biopsy CT 01/10/23 09:00 IMPRESSION: Successful CT guided biopsy of the left retroperitoneal mass, as described above. Conscious sedation protocol was followed. Electronically Signed: Joel Hutton MD at 12:30 EDT , Abdomen Ultrasound 01/10/23 11:21 IMPRESSION: None enough fluid for safe paracentesis. Electronically Signed: Joel Hutton MD at 18:10 EDT , Rhythm Strip Rhythm Strip: Sinus Rhythm Rate: 71 Ectopy: None Physical Exam Narrative General: Alert, oriented, no apparent distress HEENT: Atraumatic, normocephalic Eyes: Anicteric, normal conjunctiva, extraocular movements grossly intact Neck: Supple Respiratory: Clear to auscultation bilaterally, normal respiratory effort Cardiovascular: Regular rate and rhythm GI: Soft, nondistended, no significant tenderness, no rebound, guarding, rigidity Extremities: No edema Musculoskeletal: Moving all extremities Neuro: No overt focal neurological deficits Skin: No rashes appreciated Psych: Cooperative Assessment & Plan Assessment/Plan (1) Mass of peritoneum: PLAN: There is a mass in the peritoneum along with omental caking likely secondary to peritoneal carcinomatosis. The differential diagnosis does include primary ovarian, sarcoma, hepatocellular with metastasis, lymphoma. She underwent a peritoneal biopsy. I already beth a CA 19-9, CA125, CEA, LDH and protein electrophoresis. Her CA 19-9 is mildly elevated but there is no clear pancreatic mass seen on imaging. Recommend to repeat the CA 19-9 in approximately 3 months. I suspect that she is nauseous and not able to eat secondary to peritoneal carcinomatosis. Continue scheduled Reglan, PPI and start scopolamine patch. She may also benefit from an SSRI. (2) Cirrhosis: PLAN: Cirrhosis likely secondary to [place] versus autoimmune liver disease. Work-up is in progress. There is no other sign of decompensated liver disease at this time except for ascites. There is no signs of jaundice, encephalopathy or GI bleeding. Charges/Coding Visit Charges Inpatient E&M: 00667 Subs Hosp L3
[2023-01-11] MEDS: Ceftriaxone 1 GM/50 ML BAG IV (21:20)
[2023-01-12 04:16] VITALS: BP 119/65; PULSE 80; RESP 16; TEMP 36.6; O2SAT 98
[2023-01-12] MEDS: Metoclopramide 10 MG/2 ML Vial 5 MG IV ×2 (06:14→11:41)
[2023-01-12] MEDS: Levothyroxine 88 MCG Tablet PO (06:14)
[2023-01-12] MEDS: Pyridostigmine Bromide 60 MG Tablet PO ×2 (06:17→14:02)
[2023-01-12 06:22] LABS: Absolute Lymphocyte Count 1.51 X10^3/uL (0.83-4.51); Absolute Neutrophil Count 9.6 X10^3/uL (2.0-7.7); Basophil# 0.13 X10^3/uL; Eosinophil# 0.25 X10^3/uL; Eosinophils% 1.9 % (0-5); Hematocrit 38.3 % (37-47); Hemoglobin 12.3 g/dL (12.0-15.0); Lymphocyte # 1.51 X10^3/ul (0.83-4.51); Lymphocyte % 11.7 % (19-41); Mean Corp Hgb Conc 32.1 g/dL (32-36); Mean Corpuscular Hgb 27.2 pg (27.0-32.0); Mean Corpuscular Volume 84.5 fL (81-99); Mean Platelet Vol. 9.9 fl (6.2-12.0); Monocyte# 1.23 X10^3/uL; Monocyte% 9.6 % (0-10); NRBC Flagged by Analyzer 0 % (0-5); Neutrophil # 9.59 X10^3/uL (2.7-7.7); Neutrophil % 74.6 % (47-70); Platelet Count 368 K/mm3 (150-450); RBC Distribution Width CV 13.3 % (11.6-14.6); RBC Distribution Width SD 41.1 fl (35.1-43.9); Red Blood Count 4.53 M/mm3 (4.2-5.4); White Blood Count 12.9 K/mm3 (4.4-11.0)
[2023-01-12 06:47] LABS: Anion Gap 5 (5-15); BUN 40 mg/dL (7-18); BUN/Creat Ratio 33.1 RATIO (10-20); Calcium,Total 8.8 mg/dL (8.5-10.1); Chloride 109 mmol/L (98-107); Creatinine, Serum 1.21 mg/dL (0.55-1.02); EST Glomerular Filtration Rate 45 mL/min (>60); Est Glom Filt Rate - Afr Amer 55 mL/min (>60); Estimated Creatinine Clearance 27.98 ml/min; Glucose 90 mg/dL (74-106); Potassium 3.7 mmol/L (3.5-5.1); Sodium Level 138 mmol/L (136-145)
[2023-01-12 07:51] VITALS: O2SAT 98
[2023-01-12 08:54] VITALS: BP 134/51; PULSE 76; RESP 18; TEMP 36.3; O2SAT 97
--- NOTE | 2023-01-12 08:56 | PCM.PN.HOSP ---
Reason for Visit Reason for Visit: Diagnoses Acute gastroenteropathy due to [place] agent (01/08/23) Noninfective gastroenteritis and colitis, unspecified (01/08/23) Other specified disorders of peritoneum (01/08/23) Unspecified cirrhosis of liver (01/08/23) Nausea with vomiting, unspecified (01/08/23) Weakness (01/08/23) Subjective Subjective Has been having multiple bowel movements still with the lactulose. Nausea somewhat better. Abdomen feels about the same. Overall feeling better than previous Objective Data Objective Data Vital Signs: Vital Signs Temp Pulse Resp BP Pulse Ox O2 Del Method O2 Flow Rate 97.3 F L 76 18 134/51 H 97 Room Air 3 01/12/23 08:54 01/12/23 08:54 01/12/23 08:54 01/12/23 08:54 01/12/23 08:54 01/12/23 08:54 01/11/23 11:00 Oxygen Flow Rate (L/min) [1120 3 ] Oxygen Flow Rate (L/min) [1115 3 ] Oxygen Flow Rate (L/min) [1110 3 ] Oxygen Flow Rate (L/min) [1105 3 ] Oxygen Flow Rate (L/min) [1100 3 ] Oxygen Delivery Method [2] Room Air Oxygen Delivery Method [1 ( Room Air Initial Baseline)] Oxygen Delivery Method [1120] Nasal Cannula Oxygen Delivery Method [1115] Nasal Cannula Oxygen Delivery Method [1110] Nasal Cannula Oxygen Delivery Method [1105] Nasal Cannula Oxygen Delivery Method [1100] Nasal Cannula Oxygen Delivery Method Room Air Weight: 84.3 kg Body Mass Index (BMI) 35.1 Intake & Output: Intake and Output for Last 24 Hours 01/10/23 01/11/23 01/12/23 23:59 23:59 23:59 Intake Total 618.33 / 818.33 1100 / 1100 Output Total 600 / 600 Balance 18.33 / 218.33 1100 / 1100 Lab / Micro Data Result Diagrams: 01/12/23 06:05 01/12/23 06:05 Labs: Laboratory Results - last 24 hr 01/12/23 06:05: WBC 12.9 H, RBC 4.53, Hgb 12.3, Hct 38.3, MCV 84.5, MCH 27.2, MCHC 32.1, RDW Std Deviation 41.1, RDW Coeff of Arias 13.3, Plt Count 368, MPV 9.9, Immature Gran % (Auto) 1.200 H, Neut % (Auto) 74.6 H, Lymph % (Auto) 11.7 L, [place] % (Auto) 9.6, Eos % (Auto) 1.9, Baso % (Auto) 1.0, Absolute Neuts (auto) 9.6 H, Absolute Lymphs (auto) 1.51, Nucleated RBC % 0 01/12/23 06:05: Sodium 138, Potassium 3.7, Chloride 109 H, Carbon Dioxide 24.0, Anion Gap 5, BUN 40 H, Creatinine 1.21 H, Estim Creat Clear Calc 27.98, Est GFR (MDRD) Af Amer 55 L, Est GFR (MDRD) Non-Af 45 L, BUN/Creatinine Ratio 33.1 H, Glucose 90, Calcium 8.8 Micro: Microbiology 01/07/23 18:40 Blood Culture (Wb) - Anticubital Left Blood Culture - Preliminary No growth in 48 hours. 01/07/23 18:07 Blood Culture (Wb) - Anticubital Right Blood Culture - Preliminary No growth in 48 hours. 01/08/23 08:47 Stool Enteric Bacteriology - Final Radiography Diagnostic Testing: Radiology Impression Biopsy CT 01/10/23 09:00 IMPRESSION: Successful CT guided biopsy of the left retroperitoneal mass, as described above. Conscious sedation protocol was followed. Electronically Signed: Joel Hutton MD at 12:30 EDT , Rhythm Strip Rhythm Strip: Sinus Rhythm Rate: 71 Ectopy: None Physical Exam Narrative General: Alert, oriented, no apparent distress HEENT: Atraumatic, normocephalic Eyes: Anicteric, normal conjunctiva, extraocular movements grossly intact Neck: Supple Respiratory: Clear to auscultation bilaterally, normal respiratory effort Cardiovascular: Regular rate and rhythm GI: Soft, nondistended, no significant tenderness, no rebound, guarding, rigidity Extremities: No edema Musculoskeletal: Moving all extremities Neuro: No overt focal neurological deficits Skin: No rashes appreciated Psych: Cooperative Assessment & Plan Assessment/Plan (1) Cirrhosis: (2) Mass of peritoneum: (3) Nausea & vomiting: (4) Generalized weakness: PLAN: Plan 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 -She is not known to have cirrhosis with ascites. -Started on Lasix and Aldactone.? Hydrochlorothiazide held. -Gastroenterology consulted.? 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 -Will need peritoneal biopsy with paracentesis and cytology of the fluid, CT-guided biopsy ordered for tomorrow -Remains on Lasix, spironolactone, lactulose, Xifaxan -01/10: Initially was going to have CT biopsy 01/10 but this was changed to paracentesis with cytology however ultrasound did not identify no fluid for safe sampling. Patient does still have CT-guided biopsy next 1 to 2 days based on documentation -01/11: CT-guided biopsy performed today. If stable tomorrow can likely be discharged with outpatient follow-up -01/12: Successful biopsy 01/11. Can follow-up outpatient for results. Did have slight bump in creatinine and BUN though not KATHERINE. Will hold diuretics and give small fluid bolus. Suspect diuretic dose may need to be decreased. Additionally she had been on lactulose and having multiple bowel movements which may have also been dehydrating. If BMP improved or unchanged this afternoon okay for DC and outpatient follow-up #Intractable nausea -Was concern for gastroenteritis -Possibly secondary to peritoneal carcinomatosis -Still on rocephin -Enteric panel negative -Slightly improved with Reglan -Adding nutritional supplements support due to poor p.o. -01/11: Poor p.o. likely due to #1, continue to encourage intake -01/12: Does report this is better than it had been, on discharge will give antiemetics #History of myasthenia gravis -On pyridostigmine and mycophenolate. #Hypothyroidism:on synthroid #DVT ppx: SCDs Florecita Delacruz, MD Time spent in the patient's overall evaluation,decision-making process, review of diagnostic data, adjustment of management, discussion with other providers, nursing nursing and ancillary staff involved in patient's care documentation, 30 minutes Charges/Coding Visit Charges Inpatient E&M: 18646 Subs Hosp L2
[2023-01-12] MEDS: amLODIPine 5 MG Tablet PO (09:00)
[2023-01-12] MEDS: Ensure Plus High Protein 120 ML LIQUID PO ×2 (09:00→14:01)
[2023-01-12] MEDS: Mycophenolate Mofetil 250 MG Capsule 500 MG PO (09:00)
[2023-01-12] MEDS: rifAXIMin 550 MG Tablet PO (09:00)
[2023-01-12] MEDS: 0.9% Saline Lock 10 ML Syringe IV ×2 (09:02→11:41)
--- NOTE | 2023-01-12 10:17 | CASEMGMT ---
Social Work [facility] responded and is able to accept pt for skilled therapy. MD Delacruz reports will check pt BMP at noon and if good pt can discharge today. PLAN: [facility], when medically ready [facility]
[2023-01-12 13:18] LABS: Anion Gap 8 (5-15); BUN 45 mg/dL (7-18); BUN/Creat Ratio 38.5 RATIO (10-20); Calcium,Total 9.6 mg/dL (8.5-10.1); Chloride 106 mmol/L (98-107); Creatinine, Serum 1.17 mg/dL (0.55-1.02); EST Glomerular Filtration Rate 47 mL/min (>60); Est Glom Filt Rate - Afr Amer 57 mL/min (>60); Estimated Creatinine Clearance 28.94 ml/min; Glucose 100 mg/dL (74-106); Potassium 3.6 mmol/L (3.5-5.1); Sodium Level 136 mmol/L (136-145)
[2023-01-12 13:58] VITALS: BP 117/51; PULSE 100; RESP 18; TEMP 36.4; O2SAT 97
--- NOTE | 2023-01-12 14:29 | TREXTCAR_ITS ---
Diet Diet Order/Speech Therapy: 01/11/23 12:52 Diet: Regular - No Added Salt Dietary Modifications:: No Added Salt Is pt able to select menu?: Yes Routine Orders/Code Status Suppository Type: Dulcolax 10mg Suppository Frequency: Daily PRN Routine Lab Work: BMP (2-3 days) Code Status: DNRCC-A Therapies Physical Therapy: Eval and Treat Occupational Therapy: Eval and Treat Problem/Diagnosis (1) Cirrhosis: Status: Acute Code(s): K74.60 - Unspecified cirrhosis of liver (2) Mass of peritoneum: Status: Acute Code(s): K66.8 - Other specified disorders of peritoneum (3) Nausea & vomiting: Status: Acute Code(s): R11.2 - Nausea with vomiting, unspecified (4) Generalized weakness: Status: Acute Code(s): R53.1 - Weakness Plan 82-year-old female with history of hypertension, hypothyroidism, myasthenia gravis presented to [facility] 01/07/2023 with concerns for dehydration and poor p.o. with nausea, vomiting, diarrhea. CT of abdomen demonstrated cirrhosis and ascites. GI was consulted. 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 She was evaluated for paracentesis for cytology prior to biopsy but there was not enough fluid for evaluation. Underwent successful CT-guided biopsy of mass on 01/11. Did have Ca 125 come back on the day of discharge is greater than 25,000. Discussed results with patient, her , and her daughter and suspicion for gynecological cancer though biopsy results not back yet. Discussed that she would be referred to gynecology oncology and we have scheduled an appointment for Tuesday for evaluation. On day of discharge she did have a slight bump in creatinine though not an KATHERINE. Had been having multiple bowel movements because of the lactulose and was on spironolactone and Lasix as well. These were held and she was given gentle hydration. Repeat improved. 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 #elevated CA 125 >41536 #Intractable nausea- improved #History of myasthenia gravis #Hypothyroidism: Allergies/Procedures Done in Hospital Allergies Penicillins Adverse Reaction (Intermediate, Verified 01/07/23 14:43) GI upset Procedures: - (CT-guided biopsy) Type of Care/Length of Stay Estimated LOS: Convalescent Care Less Than 30 days Type of Care Needed: Skilled Rehab Potential: Good Prognosis: Good Additional Orders/Day of Discharge Day of Discharge: 01/12/23 Dietary and Speech Recommendations Dietitian Recommendations/Changes: Regular/no added salt diet; monitor need to further restrict sodium and add fluid restriction as appetite/oral intake improve at meals. Will continue 120ml ensure plus high protein 4 times per day w/ medpass as tolerated. Discharge Plan Admission Admit Date/Time: 01/08/23 17:03 Primary Reason for Your Visit: Nausea, poor appetite Attending Provider: Florecita Delacruz Primary Care Provider: Yina Lucas Consulting Providers: Byron Little ; Lisa Christensen ; Joel Hutton Instructions Patient Instructions: RAD RN Paracentesis Dc, RAD RN Image-Guided Biopsy, RAD RN Procedural Sedation Additional Instructions / Restrictions: DISCHARGE INSTRUCTIONS PLEASE READ *Please take this with you to your next doctors appointment* -Please follow-up with Dr. Kelly with gynecology/oncology on November 19 at 10 AM. -You will need to follow-up with Dr. Narayanan with GI in his office upon discharge. Please call his office to schedule your hospital follow-up appointment (ph. [phone]) - Would recommend lab work (BMP) to check your kidney function and potassium in 3 to 5 days through your primary care physician's office. Please call their office upon discharge to obtain order for lab work. -You have had several medication changes. You will stop taking your losartan and her hydrochlorothiazide and instead you will be taking medications: Furosemide (Lasix) and spironolactone (Aldactone) as well as Norvasc -Additionally you will be discharged with lactulose 10 g that you will take once daily and Reglan 5 mg which you will take 3 times a day, this medication will need to be reevaluated at your follow-up appointment for continuation -Continue other home medications -Please call your primary care provider's office upon discharge to schedule a hospital follow up within 1 week. -For any concerning signs or symptoms please call 911 or proceed to the nearest emergency department Discharge Orders/Prescriptions Prescriptions: New amlodipine 5 mg Tablet 5 mg PO DAILY 30 Days Qty: 0 0RF furosemide [Lasix] 20 mg tablet 20 mg PO DAILY Qty: 30 0RF spironolactone 25 mg tablet 25 mg PO DAILY Qty: 30 0RF lactulose 10 gram/15 mL solution 10 g PO DAILY 30 Days Qty: 450 0RF metoclopramide HCl [Reglan] 5 mg tablet 5 mg PO TID 14 Days Qty: 42 0RF Continued levothyroxine 88 mcg tablet 88 mcg PO DAILY pyridostigmine bromide 60 mg tablet 60 mg PO TID mycophenolate mofetil [CellCept] 500 mg tablet 500 mg PO BID Discontinued hydrochlorothiazide 25 mg tablet 25 mg PO DAILY losartan [Cozaar] 50 mg tablet 50 mg PO DAILY Referrals / Follow Up: Yina Lucas MD [Primary Care Provider] - Within 1 Week Colt Narayanan DO [Med Staff - Active Staff] - Within 1 Month Adams Kelly MD [Non-Staff] - 01/17/23 10:00 am Disposition Disposition (needs filled in before D/C Order can be placed): [facility]
--- NOTE | 2023-01-12 14:35 | DS.PCM_ITS ---
Providers Date of Admission: 01/08/23 Date of Discharge: 01/12/23 Primary Care Physician: Dr. Yina Lucas MD Consultations 01/08/23 18:41 Consult: Interventional Radiology Routine Consulting Provider: Joel Hutton Reason for Consult: peritoneal mass EMERGENT Consult: No MD Notified: Yes Date Notified: 01/08/23 Time Notified: 18:41 Method of Notification: Verbal Reason For Visit: GASTROENTERITIS & CIRRHOSIS WITH ASCITES Diagnosis Discharge Diagnosis (1) Cirrhosis: Status: Acute Code(s): K74.60 - Unspecified cirrhosis of liver (2) Mass of peritoneum: Status: Acute Code(s): K66.8 - Other specified disorders of peritoneum (3) Nausea & vomiting: Status: Acute Code(s): R11.2 - Nausea with vomiting, unspecified (4) Generalized weakness: Status: Acute Code(s): R53.1 - Weakness Plan 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 #elevated CA 125 >58426 #Intractable nausea- improved #History of myasthenia gravis #Hypothyroidism: Medications at Discharge Home Medications levothyroxine 88 mcg tablet 88 mcg PO DAILY thyroid 11/24/18 mycophenolate mofetil 500 mg tablet (CellCept) 500 mg PO BID MG 04/25/19 pyridostigmine bromide 60 mg tablet 60 mg PO TID mystensia gravis 04/25/19 amlodipine 5 mg tablet 5 mg PO DAILY 30 days #0 tabs 01/12/23 furosemide 20 mg tablet (Lasix) 20 mg PO DAILY #30 tabs 01/12/23 lactulose 10 gram/15 mL oral solution 10 g (15 mL) PO DAILY 30 days #450 mL 01/12/23 metoclopramide HCl 5 mg tablet (Reglan) 5 mg PO TID 14 days #42 tabs 01/12/23 spironolactone 25 mg tablet 25 mg PO DAILY #30 tabs 01/12/23 Hospital Course Summary of Care Provided Minutes Spent on Discharge: 35 Hospital Course: 82-year-old female with history of hypertension, hypothyroidism, myasthenia gr kamille presented to [facility] 01/07/2023 with concerns for dehydration and poor p.o. with nausea, vomiting, diarrhea. CT of abdomen demonstrated cirrhosis and ascites. GI was consulted. 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 She was evaluated for paracentesis for cytology prior to biopsy but there was not enough fluid for evaluation. Underwent successful CT-guided biopsy of mass on 01/11. Did have Ca 125 come back on the day of discharge is greater than 25,000. Discussed results with patient, her , and her daughter and suspicion for gynecological cancer though biopsy results not back yet. Discussed that she would be referred to gynecology oncology and we have scheduled an appointment for Tuesday for evaluation. On day of discharge she did have a slight bump in creatinine though not an KATHERINE. Had been having multiple bowel movements because of the lactulose and was on spironolactone and Lasix as well. These were held and she was given gentle hydration. Repeat improved. On day of discharge per daughter she was eating better and nausea has been somewhat improved, no abdominal pain the still has a fullness. Did not voice any other complaints. Discharge instructions as followed: -Please follow-up with Dr. Kelly with gynecology/oncology on November 19 at 10 AM. -You will need to follow-up with Dr. Narayanan with GI in his office upon discharge.? Please call his office to schedule your hospital follow-up appointment (ph. [phone]) - Would recommend lab work (BMP) to check your kidney function and potassium in 3 to 5 days through your primary care physician's office.? Please call their office upon discharge to obtain order for lab work. -You have had several medication changes.? You will stop taking your losartan and her hydrochlorothiazide and instead you will be taking medications: Furosemide (Lasix) and spironolactone (Aldactone) as well as Norvasc -Additionally you will be discharged with lactulose 10 g that you will take once daily and Reglan 5 mg which you will take 3 times a day, this medication will need to be reevaluated at your follow-up appointment for continuation -Continue other home medications -Please call your primary care provider's office upon discharge to schedule a hospital follow up within 1 week. -For any concerning signs or symptoms please call 911 or proceed to the nearest emergency department Physical Exam Narrative General: Alert, oriented, no apparent distress HEENT: Atraumatic, normocephalic Eyes: Anicteric, normal conjunctiva, extraocular movements grossly intact Neck: Supple Respiratory: Clear to auscultation bilaterally, normal respiratory effort Cardiovascular: Regular rate and rhythm GI: Soft, nondistended, no significant tenderness, no rebound, guarding, rigidity Extremities: No edema Musculoskeletal: Moving all extremities Neuro: No overt focal neurological deficits Skin: No rashes appreciated Psych: Cooperative Weight / BMI Weight Weight: 84.3 kg Body Mass Index (BMI) 35.1 ABG / Lab / Microbiology Data Result Diagrams: 01/12/23 06:05 01/12/23 12:28 Laboratory: Laboratory Results - last 24 hr 01/11/23 06:38: CA 15-3 Antigen 563.0 H, CA 125 Antigen 88019.0 H 01/12/23 06:05: WBC 12.9 H, RBC 4.53, Hgb 12.3, Hct 38.3, MCV 84.5, MCH 27.2, MCHC 32.1, RDW Std Deviation 41.1, RDW Coeff of Arias 13.3, Plt Count 368, MPV 9.9, Immature Gran % (Auto) 1.200 H, Neut % (Auto) 74.6 H, Lymph % (Auto) 11.7 L , Dent % (Auto) 9.6, Eos % (Auto) 1.9, Baso % (Auto) 1.0, Absolute Neuts (auto) 9.6 H, Absolute Lymphs (auto) 1.51, Nucleated RBC % 0 01/12/23 06:05: Sodium 138, Potassium 3.7, Chloride 109 H, Carbon Dioxide 24.0, Anion Gap 5, BUN 40 H, Creatinine 1.21 H, Estim Creat Clear Calc 27.98, Est GFR (MDRD) Af Amer 55 L, Est GFR (MDRD) Non-Af 45 L, BUN/Creatinine Ratio 33.1 H, Glucose 90, Calcium 8.8 01/12/23 12:28: Sodium 136, Potassium 3.6, Chloride 106, Carbon Dioxide 22.0, Anion Gap 8, BUN 45 H, Creatinine 1.17 H, Estim Creat Clear Calc 28.94, Est GFR (MDRD) Af Amer 57 L, Est GFR (MDRD) Non-Af 47 L, BUN/Creatinine Ratio 38.5 H, Glucose 100, Calcium 9.6 Microbiology: Microbiology 01/07/23 18:40 Blood Culture (Wb) - Anticubital Left Blood Culture - Preliminary No growth in 48 hours. 01/07/23 18:07 Blood Culture (Wb) - Anticubital Right Blood Culture - Preliminary No growth in 48 hours. 01/08/23 08:47 Stool Enteric Bacteriology - Final Meaningful Use Info Meaningful Use Diagnoses (Choose all that apply): None applicable Discharge Plan Admission Admit Date/Time: 01/08/23 17:03 Primary Reason for Your Visit: Nausea, poor appetite Attending Provider: Florecita Delacruz Primary Care Provider: Yina Lucas Consulting Providers: Byron Little ; Lisa Christensen ; Joel Hutton Instructions Patient Instructions: RAD RN Paracentesis Dc, ALEC RN Image-Guided Biopsy, ALEC RN Procedural Sedation Additional Instructions / Restrictions: DISCHARGE INSTRUCTIONS PLEASE READ *Please take this with you to your next doctors appointment* -Please follow-up with Dr. Kelly with gynecology/oncology on November 19 at 10 AM. -You will need to follow-up with Dr. Narayanan with GI in his office upon discharge. Please call his office to schedule your hospital follow-up appointment (ph. [phone]) - Would recommend lab work (BMP) to check your kidney function and potassium in 3 to 5 days through your primary care physician's office. Please call their office upon discharge to obtain order for lab work. -You have had several medication changes. You will stop taking your losartan and her hydrochlorothiazide and instead you will be taking medications: Furosemide (Lasix) and spironolactone (Aldactone) as well as Norvasc -Additionally you will be discharged with lactulose 10 g that you will take once daily and Reglan 5 mg which you will take 3 times a day, this medication will need to be reevaluated at your follow-up appointment for continuation -Continue other home medications -Please call your primary care provider's office upon discharge to schedule a hospital follow up within 1 week. -For any concerning signs or symptoms please call 911 or proceed to the nearest emergency department Discharge Orders/Prescriptions Prescriptions: New amlodipine 5 mg Tablet 5 mg PO DAILY 30 Days Qty: 0 0RF furosemide [Lasix] 20 mg tablet 20 mg PO DAILY Qty: 30 0RF spironolactone 25 mg tablet 25 mg PO DAILY Qty: 30 0RF lactulose 10 gram/15 mL solution 10 g PO DAILY 30 Days Qty: 450 0RF metoclopramide HCl [Reglan] 5 mg tablet 5 mg PO TID 14 Days Qty: 42 0RF Continued levothyroxine 88 mcg tablet 88 mcg PO DAILY pyridostigmine bromide 60 mg tablet 60 mg PO TID mycophenolate mofetil [CellCept] 500 mg tablet 500 mg PO BID Discontinued hydrochlorothiazide 25 mg tablet 25 mg PO DAILY losartan [Cozaar] 50 mg tablet 50 mg PO DAILY Referrals / Follow Up: Yina Lucas MD [Primary Care Provider] - Within 1 Week Colt Narayanan DO [Med Staff - Active Staff] - Within 1 Month Adams Kelly MD [Non-Staff] - 01/17/23 10:00 am Disposition Disposition (needs filled in before D/C Order can be placed): Care Home Facility Charges/Coding Visit Charges Inpatient E&M: 10121 Disch Hosp >30min
--- NOTE | 2023-01-12 14:56 | PHA.DC.MR ---
Pharmacy Service has performed discharge medication reconciliation for this patient. The patient's discharge medication list was reviewed for discrepancies and discrepancies were resolved. Home Medications levothyroxine 88 mcg tablet 88 mcg PO DAILY thyroid 11/24/18 mycophenolate mofetil 500 mg tablet (CellCept) 500 mg PO BID MG 04/25/19 pyridostigmine bromide 60 mg tablet 60 mg PO TID mystensia gravis 04/25/19 amlodipine 5 mg tablet 5 mg PO DAILY 30 days #0 tabs 01/12/23 furosemide 20 mg tablet (Lasix) 20 mg PO DAILY #30 tabs 01/12/23 lactulose 10 gram/15 mL oral solution 10 g (15 mL) PO DAILY 30 days #450 mL 01/12/23 metoclopramide HCl 5 mg tablet (Reglan) 5 mg PO TID 14 days #42 tabs 01/12/23 spironolactone 25 mg tablet 25 mg PO DAILY #30 tabs 01/12/23
--- NOTE | 2023-01-12 15:19 | CASEMGMT ---
Social Work? NATHALIE notified pt and pt family of acceptance and discharge to [facility] today. NATHALIE completed 7000 convalescent form in [facility] System. Set up wheelchair transportation through [facility] for 4:30 pm. NATHALIE faxed all discharge orders to [facility] via [facility] and notified of discharge time. NATHALIE notified pt nurse of transport time. NATHALIE made copies of discharge orders and placed on pt chart. Sent original orders in envelope with pt upon discharge.?? Disposition: [facility], skilled, convalescent, level of care? MONSE Byrd
== END 2023-01-12 16:43 | disposition skilled nursing facility (03) | DRG 844 ==
LOC: ED 18:54 → MS3 19:44
PROVIDERS: Internal Medicine Gastroenterology; Radiology Diagnostic Radiology; Admitting Provider Family Medicine; Emergency Provider Emergency Medicine; PCP Internal Medicine; Visit Provider Internal Medicine
DX: C7A.1 Malignant poorly differentiated neuroendocrine tumors (principal); R18.8 Other ascites; A08.11 Acute gastroenteropathy due to Norwalk agent; G70.00 Myasthenia gravis without (acute) exacerbation; K74.3 Primary biliary cirrhosis; K75.81 Nonalcoholic steatohepatitis (NASH); E87.6 Hypokalemia; I10 Essential (primary) hypertension; E03.9 Hypothyroidism, unspecified; E78.5 Hyperlipidemia, unspecified; K76.9 Liver disease, unspecified; B34.8 Other viral infections of unspecified site; R94.31 Abnormal electrocardiogram [ECG] [EKG]; Z66 Do not resuscitate; R53.1 Weakness
CPT/HCPCS: 36415; 74177; 74181; 76705; 77012; 80048; 80053; 80074; 80076; 81001; 82105; 82140; 82378; 82728; 82784; 83516; 83615; 83690; 84165; 84443; 85025; 85610; 85652; 85730; 86140; 86225; 86235; 86256; 86300; 86301; 86304; 86334; 87040; 87426; 87506; 88172; 88305; 88313; 88325; 88341; 88342; 93005; 97110; 97162; 97166; 97530; 97535; 99284; J7030; J7040; J7050; Q9967; A4216; J2405

== ENCOUNTER → 2023-02-04 | Outpatient (CLI) | payer MEDICARE, OTHER, SELFPAY ==
--- NOTE | 2023-02-04 10:30 | US_ITS ---
STUDY: ABDOMINAL ULTRASOUND -ascites survey. REASON FOR VISIT: Female, 82 years old Ascites -- Ascites Survey. Call dtr or to schedule. TECHNIQUE: Ultrasound evaluation of the 4 quadrants was performed with real-time and static chance-scale imaging. TECHNICAL QUALITY: Adequate. COMPARISON: None. FINDINGS: The 4 quadrants was assessed with ultrasound. Not enough fluid for safe paracentesis. . US/Abdomen Limited IMPRESSION: Not enough fluid for safe paracentesis. Electronically Signed: Joel Hutton MD at 9:22 EDT ,
== END | disposition home or self-care (01) ==
LOC: US 10:29
PROVIDERS: PCP Internal Medicine; Referring Provider Nurse Practitioner Adult Health; Visit Provider Nurse Practitioner Adult Health
DX: R18.8 Other ascites (principal); K74.60 Unspecified cirrhosis of liver; K66.8 Other specified disorders of peritoneum
CPT/HCPCS: 76705

== ENCOUNTER 2023-02-14 21:51 | Emergency (ER) | payer MEDICARE, OTHER, SELFPAY ==
[2023-02-14 21:53] VITALS: BP 132/66; PULSE 106; RESP 14; TEMP 36.6; O2SAT 95
[2023-02-14 22:05] VITALS: BMI 35.7
[2023-02-14] MEDS: 0.9% Normal Saline 1,000 ML 999 ML IV (23:04)
--- NOTE | 2023-02-14 23:07 | ED.RN ---
PER DR. THOMAS PT DOES NOT NEED BLOOD CULTURES PRIOR TO ANTIBIOTIC ADMINISTRATION.
[2023-02-14] MEDS: Ceftriaxone 1 GM/50 ML BAG IV (23:10)
[2023-02-14 23:16] LABS: Absolute Lymphocyte Count 0.66 X10^3/uL (0.83-4.51); Absolute Neutrophil Count 15.2 X10^3/uL (2.0-7.7); Basophil# 0.09 X10^3/uL; Basophil% 0.5 % (0-1); Eosinophil# 0.01 X10^3/uL; Eosinophils% 0.1 % (0-5); Hematocrit 40.2 % (37-47); Hemoglobin 13.4 g/dL (12.0-15.0); Lymphocyte # 0.66 X10^3/ul (0.83-4.51); Lymphocyte % 3.8 % (19-41); Mean Corp Hgb Conc 33.3 g/dL (32-36); Mean Corpuscular Hgb 27.6 pg (27.0-32.0); Mean Corpuscular Volume 82.9 fL (81-99); Mean Platelet Vol. 9.1 fl (6.2-12.0); Monocyte# 1.15 X10^3/uL; Monocyte% 6.7 % (0-10); NRBC Flagged by Analyzer 0 % (0-5); Neutrophil # 15.21 X10^3/uL (2.7-7.7); Neutrophil % 87.9 % (47-70); Platelet Count 456 K/mm3 (150-450); RBC Distribution Width CV 14.2 % (11.6-14.6); RBC Distribution Width SD 42.4 fl (35.1-43.9); Red Blood Count 4.85 M/mm3 (4.2-5.4); White Blood Count 17.3 K/mm3 (4.4-11.0)
[2023-02-14 23:28] LABS: AST(SGOT) 49 U/L (15-37); Alanine Aminotransfer ALT/SGPT 19 U/L (13-56); Albumin, Serum 2.9 g/dL (3.2-5.0); Alkaline Phosphatase 76 U/L (45-117); Anion Gap 8 (5-15); BUN 29 mg/dL (7-18); Bilirubin, Direct 0.26 mg/dL (0.00-0.30); Calcium,Total 9.3 mg/dL (8.5-10.1); Chloride 99 mmol/L (98-107); Creatinine, Serum 0.94 mg/dL (0.55-1.02); EST Glomerular Filtration Rate 61 mL/min (>60); Est Glom Filt Rate - Afr Amer 74 mL/min (>60); Estimated Creatinine Clearance 36.02 ml/min; Globulin 4.1 g/dL (2.2-4.2); Glucose 104 mg/dL (74-106); Potassium 4.6 mmol/L (3.5-5.1); Sodium Level 132 mmol/L (136-145)
[2023-02-15 00:42] LABS: Lactic Acid 1.3 mmol/L (0.4-1.9)
[2023-02-15 01:00] VITALS: BP 127/79; PULSE 84; RESP 16; O2SAT 97
--- NOTE | 2023-02-15 01:29 | EX.ED.DYSGE1 ---
HPI History of Present Illness Chief Complaint: Weakness Narrative Narrative: Patient is 82-year-old female with past medical history of myasthenia gravis hypertension OS a nonalcoholic cirrhosis and small cell carcinoma. She was recently discharged from TCU/correction and reports that she has had increased weakness with poor appetite. The patient's daughter states that she was on her MyChart and realized that the last urine sample that was performed before leaving TCU did show changes consistent with infection but they were never notified or put on antibiotics according to the daughter. Daughter is concerned that the infection is spreading causing the increased symptoms seen today. Therefore with concern for developing or systemic UTI causing the increased weakness and dehydration she was brought in for evaluation [facility] Medical History Cancer antigen 125 (CA 125) elevation Carotid artery disease Dizziness Essential hypertension Gastroenteritis Generalized weakness Hyperlipidemia Hypersomnia Hypothyroidism Myasthenia gravis Norovirus Ovarian cyst Rectal bleeding Home Medications levothyroxine 88 mcg tablet 88 mcg PO DAILY thyroid 11/24/18 [History Last Taken 01/07/23] mycophenolate mofetil 500 mg tablet (CellCept) 500 mg PO BID MG 04/25/19 [History Last Taken 01/06/23] pyridostigmine bromide 60 mg tablet 60 mg PO TID mystensia gravis 04/25/19 [History Last Taken 01/06/23] hydrochlorothiazide 25 mg tablet 25 mg PO DAILY 02/10/23 [History Last Taken Unknown] losartan 50 mg tablet 50 mg PO DAILY 02/10/23 [History Last Taken Unknown] amlodipine 5 mg tablet 5 mg PO DAILY 02/14/23 [History Last Taken Unknown] furosemide 20 mg tablet 20 mg PO DAILY 02/14/23 [History Last Taken Unknown] lactulose 10 gram/15 mL oral solution 10 g PO BID 02/14/23 [History Last Taken Unknown] metoclopramide HCl 5 mg tablet 5 mg PO BID 02/14/23 [History Last Taken Unknown] ondansetron 4 mg disintegrating tablet 4 mg PO Q6H PRN Nausea 02/14/23 [History Last Taken Unknown] spironolactone 25 mg tablet 25 mg PO DAILY 02/14/23 [History Last Taken Unknown] cephalexin 500 mg capsule 500 mg PO TID 7 days #21 caps 02/15/23 [Rx Last Taken Unknown] Allergy/AdvReac Type Severity Reaction Status Date / Time Penicillins AdvReac Intermediate GI upset Verified 02/14/23 22:06 Family History Father CVA (cerebral vascular accident) Mother Alzheimer's disease Surgical History History of appendectomy History of tonsillectomy Social History Smoking Status: Never smoker second hand exposure: No alcohol intake: never substance use type: does not use caffeine: Yes ROS ROS ED Constitutional Constitutional ED: Denies chills or fever(s) ENT ENT ED: Denies sore throat Cardiovascular Cardiovascular: Denies chest pain Respiratory/Chest Respiratory/Chest: Denies cough or dyspnea Gastrointestinal Gastrointestinal: Denies abdominal pain, diarrhea, nausea or vomiting Genitourinary Genitourinary ED: Denies dysuria Musculoskeletal Musculoskeletal: Denies myalgias Integumentary Denies rash Neurologic Neurologic: Reports weakness; Denies headache(s) Hematologic/Lymphatic Hematologic/Lymphatic: Denies easy bleeding or easy bruising EXAM Physical Exam Const Vital Signs: 02/14/23 21:53 02/14/23 22:10 02/15/23 01:00 Temperature 98 F Temperature Source Temporal Pulse Rate 106 H 84 Respiratory Rate 14 16 Respiratory Effort Normal Non-Labored Respiratory Pattern Normal Blood Pressure 132/66 H 127/79 H Blood Pressure Mean 88 95 Pulse Ox 95 97 Oxygen Delivery Method Room Air Room Air Positive well nourished and well developed General Appearance ED: well developed HEENT Reports dry mucous membranes HEENT Narrative: Mucous membranes are dry and tacky without secondary changes to suggest infection Mouth ED: Yes dry mucous membranes Mouth: dry mucous membranes Eyes PERRL and EOMs intact bilaterally General Eye ED: Negative for scleral icterus Neck supple Neck Narrative: No nuchal rigidity or meningeal signs noted Resp normal respiratory effort and clear to auscultation bilaterally Cardio regular rate and regular rhythm GI non-tender and no masses GI Narrative: Abdomen is soft and nontender with normal active bowel sounds. There is slight distention noted and slight fluid wave consistent with recent diagnosis of cirrhosis and ascites. No rigidity to suggest spontaneous bacterial peritonitis Auscultation: normoactive bowel sounds Palpation: soft Extremity normal to inspection Neuro oriented x3, CN's II-XII intact bilaterally and no sensory deficits noted Neuro Narrative: Cranial nerves II through XII are grossly intact there are no focal neurologic deficit. No pronator drift no dysmetria no truncal ataxia. NIH stroke scale score of 0. Sensorium / Orientation: alert Motor Exam: strength 5/5 throughout Psych mental status grossly normal Skin no rashes or lesions noted Skin Narrative: Skin turgor slightly increased General Skin Exam: Negative for jaundice MDM MDM MDM Narrative Medical decision making narrative: Patient presented to the ER with stable vitals and a soft nonsurgical abdomen. There is just slight fluid wave on exam and therefore do not feel she would warrant a paracentesis. Patient also had a recent ultrasound performed in that chart was reviewed and confirmed the same findings as today's exam with there is minimal fluid and no need for paracentesis. With concern for patient having developed a UTI leading to urosepsis or acute kidney injury or severe electrolyte derangement basic blood work was obtained. I do not feel the need for repeat urine sample as patient has performed previously and it is already been sent for culture. Patient's white count is trended up to 17.3 but her lactic acid is normal at 1.3. Otherwise there is no clinically significant electrolyte derangement and kidney function is normal going against KATHERINE. Patient was given 1 L of fluid for hydration based on her history and exam showing mild dehydration and also started on Rocephin. Based on her symptoms and complex medical history I did discuss the case with Dr. Maza/medicine on-call. He agrees that even though patient has a white count as she is hemodynamically stable with no KATHERINE or lactic acidosis she does not require admission and therefore should be given oral antibiotics and discharged home. History & Record Review Discussion w/independent historian: Patient and Family Lab Data Attestation: I reviewed the patient's lab results. Labs: Laboratory Results - last 24 hr 02/14/23 02/14/23 02/15/23 23:00 23:00 00:07 WBC 17.3 H RBC 4.85 Hgb 13.4 Hct 40.2 MCV 82.9 MCH 27.6 MCHC 33.3 RDW Std Deviation 42.4 RDW Coeff of Arias 14.2 Plt Count 456 H MPV 9.1 Immature Gran % (Auto) 1.000 H Neut % (Auto) 87.9 H Lymph % (Auto) 3.8 L Coryell % (Auto) 6.7 Eos % (Auto) 0.1 Baso % (Auto) 0.5 Absolute Neuts (auto) 15.2 H Absolute Lymphs (auto) 0.66 L Nucleated RBC % 0 Sodium 132 L Potassium 4.6 Chloride 99 Carbon Dioxide 25.0 Anion Gap 8 BUN 29 H Creatinine 0.94 Estim Creat Clear Calc 36.02 Est GFR (MDRD) Af Amer 74 Est GFR (MDRD) Non-Af 61 BUN/Creatinine Ratio 31.0 H Glucose 104 Lactic Acid 1.3 Calcium 9.3 Total Bilirubin 0.60 Direct Bilirubin 0.26 AST 49 H ALT 19 Alkaline Phosphatase 76 Total Protein 7.0 Albumin 2.9 L Globulin 4.1 Management Discussion w/another healthcare provider: Hospitalist Discharge Plan Triage Chief Complaint: Weakness ED Provider: Christian Barrientos Dx/Rx/DC Orders Clinical Impression: UTI (urinary tract infection), Essential hypertension, Cirrhosis, Small cell carcinoma, Mild dehydration Instructions: Urinary Tract Infections in Women Prescriptions: New cephalexin 500 mg capsule 500 mg PO TID 7 Days Qty: 21 0RF No Action levothyroxine 88 mcg tablet 88 mcg PO DAILY pyridostigmine bromide 60 mg tablet 60 mg PO TID mycophenolate mofetil [CellCept] 500 mg tablet 500 mg PO BID losartan 50 mg tablet 50 mg PO DAILY hydrochlorothiazide 25 mg tablet 25 mg PO DAILY amlodipine 5 mg tablet 5 mg PO DAILY spironolactone 25 mg tablet 25 mg PO DAILY metoclopramide HCl 5 mg tablet 5 mg PO BID furosemide 20 mg tablet 20 mg PO DAILY ondansetron 4 mg Tablet,Disintegrating 4 mg PO Q6H PRN (Reason: Nausea) lactulose 10 gram/15 mL solution 10 g PO BID Primary Care Provider: Yina Lucas Referrals: Yina Lucas MD [Primary Care Provider] - Activity Restrictions/Additional Instructions: Please take your antibiotic as directed and if your urine culture is suggesting a different antibiotic you will be notified by ER family doctor. Otherwise no news indicates that you are on appropriate medication. Please return to the ER should you have any further concerns Disposition Disposition: Home, Self Care Discharge Date/Time: 02/15/23 01:47
== END 2023-02-15 01:47 | disposition home or self-care (01) ==
PROVIDERS: Emergency Provider Emergency Medicine; PCP Internal Medicine; Visit Provider Emergency Medicine
DX: N39.0 Urinary tract infection, site not specified (principal); G70.00 Myasthenia gravis without (acute) exacerbation; K74.60 Unspecified cirrhosis of liver; C80.1 Malignant (primary) neoplasm, unspecified; E86.0 Dehydration; I10 Essential (primary) hypertension; E03.9 Hypothyroidism, unspecified; Z79.69 Long term (current) use of other immunomodulators and immunosuppressants
CPT/HCPCS: 80048; 80076; 83605; 85025; 96365; 99285; J7030; A4216

== ENCOUNTER → 2023-02-24 | Outpatient (CLI) | payer MEDICARE, OTHER, SELFPAY ==
--- NOTE | 2023-02-24 09:56 | VDLE_ITS ---
Reason For Study: Swelling RIGHT LEFT GSV is normal. GSV is normal. CFV is compressible, spontaneous, phasic, CFV is compressible, spontaneous, phasic, competent and demonstrates normal competent, and demonstrates normal augmentation. augmentation. FV is compressible, spontaneous, phasic, FV is compressible, spontaneous, phasic, competent and demonstrates normal competent and demonstrates normal augmentation. augmentation. POP V is compressible, spontaneous, phasic, POP V is compressible, spontaneous, phasic, competent and demonstrates normal competent and demonstrates normal augmentation. augmentation. T/P Trunk is compressible. T/P Trunk is compressible. PTV is compressible. PTV is compressible. RT PerV is compressible. LT PerV is compressible. Procedure This is a venous duplex using B-mode, color flow and spectral Doppler. Exam performed in department. A preliminary report was called and/or faxed to Nickolas WANG. VL/Venous Duplex US - [place] Extrem Interpretation Summary No evidence for acute deep venous thrombosis bilateral lower extremities with p atent and compressible bilateral great saphenous veins. Ordering Physician: Kristina Olmos Referring Physician: Yina Lucas Performed By: Anjali Amador RVT
== END | disposition home or self-care (01) ==
LOC: CVS 09:54
PROVIDERS: PCP Internal Medicine; Referring Provider Nurse Practitioner Family; Visit Provider Nurse Practitioner Family
DX: R60.0 Localized edema (principal)
CPT/HCPCS: 93970